=== PATIENT | male | born 1950 | race Caucasian/White ===

== ENCOUNTER 2019-03-18 14:10 | Observation (INO) | payer OTHER, MEDICARE, SELFPAY ==
[2019-03-18] VITALS (9 sets, daily range): BP systolic 120–207; BP diastolic 70–100; PULSE 76–94; RESP 14–17; TEMP 36.4–36.8; O2SAT 95–100; BMI 26.8; BMI 28.3
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
[2019-03-18] MEDS: Naproxen 500 MG Tablet PO (14:55)
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
--- NOTE | 2019-03-18 16:34 | RAD_ITS ---
STUDY: X-RAY - LEFT KNEE REASON FOR EXAM: Male, 69 years old. Left left patella TECHNIQUE: 9 view(s) of the knee. COMPARISON: 03/18/2019 1447 hours. FINDINGS: 9 images were submitted, as radiology support for c-arm imaging in the operating room. This is not a diagnostic examination. Images for documentation purposes only. Fluoroscopy time if reported: RAD/Knee 1 or 2 Views IMPRESSION: Intraoperative fluoroscopic image guidance. Electronically Signed: Alanis Zambrano MD at 23:22 EST , Service support ,
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
--- NOTE | 2019-03-18 16:43 | CHAPLAIN ---
Type of Pastoral Visit _x__ Initial Visit ___ Follow-up Visit ___ On-call Visit ___ General Patient Visit ___ Spiritual Assessment ___ Family Conference ___ Bereavement ___ Rapid Response ___ Code Blue ___ Other (describe below) Pastoral Care Referral From _x__ Patient ___ Family ___ Nurse ___ Physician ___ Technical Writing Lead/Mgr ___ Negotiator ___ Other (describe below) Sacrament/Intervention _x__ Active listening ___ Anointing ___ Denominational ___ Bereavement ___ Communion ___ Patricia exploration ___ ___ Life review _x__ Prayer ___ Reconciliation ___ Sacrament of Sick _x__ Supportive presence ___ Wedding ___ Other (describe below) Pastoral Comments
--- NOTE | 2019-03-18 16:49 | RAD_ITS ---
STUDY: X-RAY CHEST REASON FOR EXAM: Male, 69 years old. Preop TECHNIQUE: AP portable COMPARISON: None. FINDINGS: Lungs are mildly hyperinflated but clear. The. There is no demonstrated pleural abnormality. Normal size heart. Normal mediastinum and [place]il[place]. Normal visualized pulmonary arteries. Normal visualized aortic arch and descending thoracic aorta. Dorsal spine demonstrates minor scoliosis and degenerative change. Normal visualized ribs, clavicles, and shoulders. There is no demonstrated abnormality of the visualized soft tissue structures of the upper abdomen. RAD/Chest 1 View (Portable) IMPRESSION: Mild hyperinflation. No acute disease Electronically Signed: Amor Arnett MD at 17:14 EST , Service support ,
[2019-03-18] MEDS: Cefazolin 2 GM in 0.9% Normal Saline 100 ML IV (17:03)
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
[2019-03-18 17:24] LABS: Absolute Lymphocyte Count 1.46 X10^3/uL (0.83-4.51); Absolute Neutrophil Count 7.5 X10^3/uL (2.0-7.7); Basophil# 0.04 X10^3/uL; Basophil% 0.4 % (0-1); Eosinophil# 0.06 X10^3/uL; Eosinophils% 0.6 % (0-5); Hematocrit 43.8 % (40-54); Hemoglobin 14.9 g/dL (13.0-16.5); Lymphocyte # 1.46 X10^3/ul (4.0); Mean Corpuscular Hgb 31.3 pg (27.0-32.0); Mean Platelet Vol. 9.4 fl (6.2-12.0); Monocyte% 6.2 % (0-10); NRBC Flagged by Analyzer 0 % (0-5); Neutrophil # 7.52 X10^3/uL (2.7-7.7); Neutrophil % 77.4 % (47-70); Platelet Count 219 K/mm3 (150-450); RBC Distribution Width CV 11.7 % (11.6-14.6); RBC Distribution Width SD 39.7 fl (35.1-43.9); Red Blood Count 4.76 M/mm3 (4.6-6.2); White Blood Count 9.7 K/mm3 (4.4-11.0)
[2019-03-18 17:37] LABS: Anion Gap 5 (5-15); BUN 15 mg/dL (7-18); BUN/Creat Ratio 16.2 RATIO (10-20); Calcium,Total 9.2 mg/dL (8.5-10.1); Chloride 103 mmol/L (98-107); Creatinine, Serum 0.93 mg/dL (0.70-1.30); EST Glomerular Filtration Rate 86 mL/min (>60); Est Glom Filt Rate - Afr Amer 104 mL/min (>60); Glucose 131 mg/dL (74-106); Potassium 3.4 mmol/L (3.5-5.1); Sodium Level 137 mmol/L (136-145)
[2019-03-18 17:43] LABS: International Normalized Ratio 1.1
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
[2019-03-18] MEDS: Acetaminophen 500 MG Tablet 1000 MG PO (22:51)
[2019-03-18] MEDS: Senna/Docusate Sodium 1 Tablet 2 TABLET PO (22:51)
[2019-03-19] VITALS (7 sets, daily range): BP systolic 121–152; BP diastolic 62–88; PULSE 76–88; RESP 16–18; TEMP 36.5–36.9; O2SAT 97–99; BMI 28.3
[2019-03-19] MEDS: Cefazolin 1 GM/50 ML BAG IV ×3 (00:47→12:04)
[2019-03-19] MEDS: DiphenhydrAMINE 25 MG Capsule PO (00:47)
[2019-03-19] MEDS: 0.9% Saline Lock 10 ML Syringe IV (00:47)
[2019-03-19 05:13] LABS: Hematocrit 38.1 % (40-54); Hemoglobin 13.2 g/dL (13.0-16.5); Mean Corp Hgb Conc 34.6 g/dL (32-36); Mean Corpuscular Hgb 31.9 pg (27.0-32.0); Mean Platelet Vol. 9.5 fl (6.2-12.0); Platelet Count 193 K/mm3 (150-450); RBC Distribution Width SD 40.5 fl (35.1-43.9); Red Blood Count 4.14 M/mm3 (4.6-6.2); White Blood Count 7.8 K/mm3 (4.4-11.0)
[2019-03-19 05:29] LABS: Anion Gap 5 (5-15); BUN 11 mg/dL (7-18); BUN/Creat Ratio 13.4 RATIO (10-20); Calcium,Total 8.8 mg/dL (8.5-10.1); Chloride 107 mmol/L (98-107); Creatinine, Serum 0.82 mg/dL (0.70-1.30); EST Glomerular Filtration Rate 100 mL/min (>60); Est Glom Filt Rate - Afr Amer 121 mL/min (>60); Glucose 83 mg/dL (74-106); Potassium 3.6 mmol/L (3.5-5.1); Sodium Level 139 mmol/L (136-145)
[2019-03-19] MEDS: Acetaminophen 500 MG Tablet 1000 MG PO ×2 (05:31→14:31)
[2019-03-19] MEDS: Senna/Docusate Sodium 1 Tablet 2 TABLET PO (08:01)
[2019-03-19] MEDS: Aspirin 81 MG TAB.CHEW PO (08:01)
--- NOTE | 2019-03-19 11:35 | PCM.PN.ORT ---
Patient Problems: Active and Suspected Problems Fracture of left patella (Acute) Subjective: This 69-year-old male who is postop day 1 following open reduction internal fixation of a grade 2 open patella fracture. He has been in a knee immobilizer. No adverse events overnight. Pain in the left knee has been well controlled. He has done transfers from bed to bedside chair. Currently denies chest pain shortness of breath dizziness or calf pain. He is not sure when his most recent tetanus booster vaccine was. Objective: Inspection of the left knee reveals a dressing that is clean dry and intact. Negative Gali bilaterally without signs of DVT. Pedal pulses present and equal bilaterally. Sensation intact to light touch. Patient is able to actively plantar and dorsiflex bilateral feet against resistance. Neurovascularly intact. - Physical Exam Vitals/I&O's: Vital Signs Temp Pulse Resp BP Pulse Ox 98.2 F 76 18 137/62 H 97 03/19/19 10:43 03/19/19 10:43 03/19/19 10:43 03/19/19 10:43 03/19/19 10:43 Oxygen Delivery Method Room Air Weight: 92.2 kg Body Mass Index (BMI) 28.3 Intake and Output for Last 24 Hours 03/17/19 03/18/19 03/19/19 23:59 23:59 23:59 Intake Total 910 / 910 1189.75 / 1189.75 Output Total 1200 / 1200 Balance 910 / 910 -10.25 / -10.25 Laboratory Results 03/18/19 17:00: WBC 9.7, RBC 4.76, Hgb 14.9, Hct 43.8, MCV 92.0, MCH 31.3, MCHC 34.0, RDW Std Deviation 39.7, RDW Coeff of Kate 11.7, Plt Count 219, MPV 9.4, Immature Gran % (Auto) 0.400, Neut % (Auto) 77.4 H, Lymph % (Auto) 15.0 L, [place] % (Auto) 6.2, Eos % (Auto) 0.6, Baso % (Auto) 0.4, Absolute Neuts (auto) 7.5, Absolute Lymphs (auto) 1.46, Nucleated RBC % 0 03/18/19 17:00: Sodium 137, Potassium 3.4 L, Chloride 103, Carbon Dioxide 29.0, Anion Gap 5, BUN 15, Creatinine 0.93, Estim Creat Clear Calc 84.60, Est GFR (MDRD) Af Amer 104, Est GFR (MDRD) Non-Af 86, BUN/Creatinine Ratio 16.2, Glucose 131 H, Calcium 9.2 03/18/19 17:00: PT 14.0, INR 1.1 03/19/19 04:54: WBC 7.8, RBC 4.14 L, Hgb 13.2, Hct 38.1 L, MCV 92.0, MCH 31.9, MCHC 34.6, RDW Std Deviation 40.5, RDW Coeff of Kate 12.0, Plt Count 193, MPV 9.5 03/19/19 04:54: Sodium 139, Potassium 3.6, Chloride 107, Carbon Dioxide 27.0, Anion Gap 5, BUN 11, Creatinine 0.82, Estim Creat Clear Calc 93.10, Est GFR (MDRD) Af Amer 121, Est GFR (MDRD) Non-Af 100, BUN/Creatinine Ratio 13.4, Glucose 83, Calcium 8.8 Current Medications Acetaminophen (Tylenol) 1,000 mg PO Q8 [facility] Last Admin: 03/19/19 05:31 Dose: 1,000 mg Documented by: Aspirin (Aspirin, Baby) 81 mg PO BIDCM [facility] Last Admin: 03/19/19 08:01 Dose: 81 mg Documented by: Cefazolin Sodium () 1 gm in 50 mls @ 150 mls/hr IV Q6 [facility] Stop: 03/19/19 12:19 Last Infusion: 03/19/19 05:51 Dose: Infused Documented by: Sodium Chloride () 250 mls @ 15 mls/hr IV .[id number] PRN PRN Reason: Saline Flush Last Infusion: 03/19/19 07:05 Dose: 0 mls/hr Documented by: Ondansetron HCl (Zofran) 4 mg IV Q8H PRN PRN PRN Reason: NAUSEA Oxycodone HCl (Oxyir) 5 - 10 mg PO Q4H PRN PRN PRN Reason: Pain Score 4-10/10 Promethazine HCl (Phenergan) 12.5 mg IM Q6H PRN PRN; Protocol PRN Reason: NAUSEA/VOMITING Senna/Docusate Sodium (Senokot-S, Valerie-Colace) 2 tablet PO BID [facility] Last Admin: 03/19/19 08:01 Dose: 2 tablet Documented by: Sodium Chloride () 10 - 40 ml IV UD PRN PRN Reason: SALINE FLUSH Last Admin: 03/19/19 00:47 Dose: 20 ml Documented by: Tetanus Immune Globulin (Hypertet) 250 units IM .ONCE ONE Stop: 03/19/19 11:34 Medical Necessity - Tobacco Use Smoking Status: Never smoker Assessment/Plan All Active Problems Fracture of left patella (Acute) 1. Status post open reduction internal fixation grade 2 open patella fracture postop day #1 2. Continue oxycodone and Tylenol as needed for pain control 3. DVT prophylaxis we will add bilateral knee-high teds. Continue baby aspirin twice daily for blood clot prevention for 1 month postoperative 4. Begin PT/OT weightbearing as tolerated left lower extremity with knee immobilizer locking knee in extension. No range of motion at the left knee at this time. 5. We will update patient's tetanus vaccine 6. Continue discharge planning with case management 7. Encourage incentive spirometry 8. Patient is orthopedically stable and okay for discharge to home today we will follow-up in the office in 1 week for an incision check. Contact us sooner if having any problems.
--- NOTE | 2019-03-19 11:42 | DCINST_ITS ---
Discharge Diet: No Restrictions Discharge Activity: May Not Drive, May not drive while taking narcotic pain medications., Use Walker Ice area for (Minutes): 20 - Ice area for 20 minutes each hour while awake Weight Bearing Status: Weight bearing as tolerated - with knee immobilizer in p lace Keep extremity elevated above heart level: Operative Extremity Call your doctor if your incision/area has: Continuous Slow Oozing, Sudden Increased Bleeding, Increased Pain/ Swelling, Increased Redness, Foul Smelling Discharge Call your doctor if you observe: Fever of 101 or Higher, Coldness, Increased Pain, Numbness or Tingling, Change in Color, Chest pain, Increased palpitations (irregular heartbeat), Calf discomfort, Uncontrolled pain Cleanse incision/area with: Do not get Incision Wet, Keep Dressing Clean & Dry Allergies/Adverse Reactions: Allergies Sulfa (Sulfonamide Antibiotics) Allergy (Verified 03/18/19 14:11) Hives Medications to take at Discharge Glucosam/Kale-Msm1/C/Christopher/Bosw [Osteo Bi-Flex Caplet] 1 tab PO DAILY 03/18/19 Multivitamin [Daily Multiple Vitamin] 1 tab PO DAILY 03/18/19 Turmeric 400 mg PO DAILY 03/18/19 Acetaminophen [Tylenol] 1,000 mg PO Q8 #56 tab 03/19/19 Aspirin [Aspirin, Baby] 81 mg PO BIDCM #60 tab.chew 03/19/19 Oxycodone [Oxyir] 5 - 10 mg PO Q4H PRN PRN 7 Days #56 tab 03/19/19 Senna/Docusate Sodium [Senokot-S] 2 tab PO BID #30 tab 03/19/19 The following prescriptions were given: Aspirin [Aspirin, Baby] 81 mg PO BIDCM #60 tab.chew Prescription Printed Oxycodone [Oxyir] 5 - 10 mg PO Q4H PRN PRN 7 Days #56 tab PRN Reason: Pain Score 4-10/10 Prescription Printed Senna/Docusate Sodium [Senokot-S] 2 tab PO BID #30 tab Prescription Printed Acetaminophen [Tylenol] 1,000 mg PO Q8 #56 tab Prescription Printed Primary Care Physician: Zoya Verma PA [Primary Care Provider] - Test Results: Test results from this visit will be discussed in further detail at your follow- up appointment, if applicable. Please Follow Up With: Nida Bear When: 1 week post operative Proposed Discharge Date: 03/19/19
--- NOTE | 2019-03-19 14:00 | CASEMGMT ---
KAL KAHN updated that patient will need FWW at discharge. KAL KAHN called [facility] for script and received faxed script for FWW. KAL KAHN into discuss with patient and , list of DME provided. Patient agreeable to [employer]. KAL KAHN sent referral and arranged for walker to be delivered to patient's room prior to discharge.
--- NOTE | 2019-03-19 14:55 | CHAPLAIN ---
Type of Pastoral Visit ___ Initial Visit _x__ Follow-up Visit ___ On-call Visit ___ General Patient Visit ___ Spiritual Assessment ___ Family Conference ___ Bereavement ___ Rapid Response ___ Code Blue ___ Other (describe below) Pastoral Care Referral From _x__ Patient ___ Family ___ Nurse ___ Physician ___ Market Specialist ___ Patternmaker Pressure Cast ___ Other (describe below) Sacrament/Intervention _x__ Active listening ___ Anointing ___ Uatsdin ___ Bereavement ___ Communion ___ Patricia exploration ___ ___ Life review _x__ Prayer ___ Reconciliation ___ Sacrament of Sick _x__ Supportive presence ___ Wedding ___ Other (describe below) Pastoral Comments
--- NOTE | 2019-03-19 17:42 | NURSING ---
Information regarding Tetanus injection given to patient prior to administration.
== END 2019-03-19 17:10 | disposition home or self-care (01) ==
LOC: ED 16:44 → SDC 17:00 → AC 17:01 → MS3 20:42 → SDC 20:42
PROVIDERS: Admitting Provider Orthopaedic Surgery; Emergency Provider Emergency Medicine; Family Provider Physician Assistant; PCP Physician Assistant; Referring Provider Orthopaedic Surgery; Visit Provider Orthopaedic Surgery
PROC: (CPT 27524; principal; 2019-03-18 16:55)
DX: S82.042B Displaced comminuted fracture of left patella, initial encounter for open fracture type I or II (principal); S66.911A Strain of unspecified muscle, fascia and tendon at wrist and hand level, right hand, initial encounter; Z23 Encounter for immunization; V47.5XXA Car driver injured in collision with fixed or stationary object in traffic accident, initial encounter; Y93.89 Activity, other specified; Y92.238 Other place in hospital as the place of occurrence of the external cause; Y99.0 Civilian activity done for income or pay; E78.00 Pure hypercholesterolemia, unspecified
CPT/HCPCS: 11012; 12001; 27524; 36415; 71045; 73110; 73130; 73560; 73564; 76000; 80048; 85025; 85027; 85610; 93005; 96365; 96366; 97162; 99218; 99251; 99283; J1670; J7030; J7050; A4216; G0378; G0463; Q9968

== ENCOUNTER 2019-12-22 09:46 | Observation (INO) | payer MEDICARE, SELFPAY ==
[2019-03-18 21:09] VITALS: BMI 28.3
--- NOTE | 2019-12-08 11:17 | EKG12_ITS ---
Test Reason : PRE-OP Blood Pressure : / mmHG Vent. Rate : 075 BPM Atrial Rate : 075 BPM P-R Int : 140 ms QRS Dur : 094 ms QT Int : 388 ms P-R-T Axes : 071 037 058 degrees QTc Int : 433 ms Normal sinus rhythm Normal ECG Confirmed by URMILA DENIS, SONALI ([id number]), fan mail editor EMIL MEZA ([id number]) on 12/13/2019 1:58:05 PM Referred By: Bacilio Nice Confirmed By:SONALI KEARNS MD
[2019-12-08 12:09] LABS: Absolute Lymphocyte Count 1.41 X10^3/uL (0.83-4.51); Absolute Neutrophil Count 5.5 X10^3/uL (2.0-7.7); Basophil# 0.03 X10^3/uL; Basophil% 0.4 % (0-1); Eosinophil# 0.13 X10^3/uL; Eosinophils% 1.7 % (0-5); Hematocrit 42.9 % (40-54); Hemoglobin 14.3 g/dL (13.0-16.5); Lymphocyte # 1.41 X10^3/ul (4.0); Lymphocyte % 18.8 % (19-41); Mean Corp Hgb Conc 33.3 g/dL (32-36); Mean Corpuscular Hgb 31.1 pg (27.0-32.0); Mean Corpuscular Volume 93.3 fL (80-94); Mean Platelet Vol. 9.9 fl (6.2-12.0); Monocyte# 0.41 X10^3/uL; Monocyte% 5.5 % (0-10); NRBC Flagged by Analyzer 0 % (0-5); Neutrophil % 73.3 % (47-70); Platelet Count 251 K/mm3 (150-450); RBC Distribution Width CV 11.9 % (11.6-14.6); RBC Distribution Width SD 40.9 fl (35.1-43.9); White Blood Count 7.5 K/mm3 (4.4-11.0)
[2019-12-08 12:21] LABS: Anion Gap 4 (5-15); BUN 15 mg/dL (7-18); BUN/Creat Ratio 17.5 RATIO (10-20); Calcium,Total 9.3 mg/dL (8.5-10.1); Chloride 103 mmol/L (98-107); Creatinine, Serum 0.86 mg/dL (0.70-1.30); EST Glomerular Filtration Rate 95 mL/min (>60); Est Glom Filt Rate - Afr Amer 115 mL/min (>60); Glucose 138 mg/dL (74-106); Potassium 3.6 mmol/L (3.5-5.1); Sodium Level 137 mmol/L (136-145)
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
[2019-12-09 09:59] LABS: Magnesium 2.2 mg/dL (1.6-2.6)
[2019-12-22] VITALS (11 sets, daily range): BP systolic 125–167; BP diastolic 64–98; PULSE 78–96; RESP 16–18; TEMP 36.2–36.8; O2SAT 93–100; BMI 27.5
--- NOTE | 2019-12-22 07:30 | RAD_ITS ---
STUDY: X-RAY - PELVIS AND LEFT HIP REASON FOR EXAM: Male, 69 years old. POST OP HIP TECHNIQUE: 2 views of the pelvis and hip. COMPARISON: Earlier same day. FINDINGS: There is a non-specific bowel gas pattern. Postsurgical changes identified within the soft tissues adjacent to the left hip. Status post left hip total arthroplasty. Hardware appears intact and normally aligned. Moderate to severe right hip arthrosis. RAD/Hip Min 2 Views (Portable) IMPRESSION: Normal-appearing postoperative left total hip arthroplasty. Electronically Signed: Lev Salter, at 13:20 EDT Tel , Service support ,
[2019-12-22] MEDS: Lactated Ringers 1,000 ML 999 ML IV ×2 (09:40→12:43)
[2019-12-22] MEDS: Scopolamine 1mg/72hr Patch 1 PATCH TD (09:54)
[2019-12-22] MEDS: Acetaminophen 500 MG Tablet 1000 MG PO ×3 (09:55→21:18)
[2019-12-22] MEDS: Gabapentin 600 MG Tablet PO (09:55)
[2019-12-22] MEDS: Cefazolin 2 GM in 0.9% Normal Saline 100 ML IV (10:58)
[2019-12-22] MEDS: dexAMETHasone 10 MG/ML Vial IV (11:05)
--- NOTE | 2019-12-22 11:31 | RAD_ITS ---
STUDY: X-RAY - PELVIS AND LEFT HIP REASON FOR EXAM: Male, 69 years old. INTRA-OPERATIVE HIP TECHNIQUE: 3 intraoperative fluoroscopic views of the pelvis and hip. COMPARISON: None. FINDINGS: 3 intraoperative fluoroscopic views of a left hip total arthroplasty. Hardware appears intact and normally aligned. The remainder of the osseous structures are intact. Significant right hip arthrosis. RAD/Hip 1 view with Pelvis IMPRESSION: Intraoperative views of the left total hip arthroplasty with hardware appearing intact and normally aligned. Electronically Signed: Lev Salter, at 17:10 EDT Tel , Service support ,
--- NOTE | 2019-12-22 12:03 | PCM.OPRPT ---
Report of Operation Date of Procedure: 12/22/19 Pre-Operative Diagnosis: Left hip primary osteoarthritis Post-Operative Diagnosis: Left hip primary osteoarthritis Surgery/Procedure Performed:: Minimally invasive left direct anterior total replacement Description of Surgical Findings:: Stable hip with equal leg lengths wood tank erector: Sarah Kathleen Type of Anesthesia:: Spinal Anesthesiologist: Neil Llamas Special Medications: 2 g Ancef, 1 g TXA at incision, 1 g TXA closure, 10 mg Decadron, joint cocktail (5 mg Duramorph, 30 mL of 0.5% Ropivicaine, 1000 units of epinephrine, 30 mg of Toradol) Specimen's removed: Bony cuts Estimated Blood Loss (mL): 300 Fluids Replaced: 1200 mL crystalloid Description of Procedure: Components used: 1. Accolade 2 Ml femoral stem size 6 127? 2. Ml trident 2 acetabular shell size 52 mm 3. Ml X3 polyethylene E 4. Ml Biolox delta 36mm, 0mm femoral head Brief history operative indications: 69 yo M who failed conservative measures for their hip osteoarthritis. X-rays were consistent with osteoarthritis including joint space narrowing, osteophyte formation and subchondral cysts. Total hip replacement was discussed with the patient with risks and benefits including but not limited to blood loss, DVTs, PEs, neurovascular damage, dislocation, general risks of anesthesia including loss of life. Patient demonstrated an understanding medical clearance is obtained the patient was consented for surgery. Procedure: On the date of procedure the patient's L hip was marked in the preoperative area. Patient was then taken back to the operating room where anesthesia assumed control of the C-spine and airway and administered anesthetic. Patient was transferred to the operating table and placed in the supine position. The hips were placed at the break of the bed and a sacral bump was placed. The L lower extremity was then prepped out in a sterile fashion using chlorhexidine while the surgeon scrubbed. The PA was vital in the positioning of the patient. Upon reentering the room the L lower extremity was draped in the standard orthopedic fashion and the incision was marked. A timeout was called and everyone agreed upon the side, the site, the procedure be performed, antibody given, and patient's identity. At this time incision was made through skin, subcutaneous tissue, and fat down to fascia. The fascia was then incised and the TFL was retracted laterally. A retractor was placed on the lateral border of the femoral neck. Attention was directed to the inferior portion of the approach and all crossing vessels were identified and appropriately coagulated. A retractor was then placed on the medial portion of the femoral neck. The anterior capsule was then cleared of all soft tissue and then H shaped capsulotomy was made. The retractors were then placed inside the capsule. The femoral neck was identified and a cleanup cut was made. At this time a power corkscrew was used to remove the femoral head. Attention was then turned toward the acetabulum where the soft tissues were appropriately retracted and the acetabulum was sequentially reamed to 52 mm. A 52 mm cup was then selected and impacted into place. Acetabular liner was impacted into place and locking mechanism was verified. The position of the acetabular cup was then verified under live fluoroscopy. Attention was then turned to the femur. Soft tissue releases on the medial and lateral femoral neck were appropriately done, the leg was externally rotated and lateralized. A Kaplan retractor was placed medially and proximally to the greater trochanter this allowed appropriate visualization and exposure of the femoral canal. Rongeour was then used to remove excess lateral bone. A canal finder and entry broach were used to open the proximal canal. Once we verified we were down the femoral canal we subsequently broached up to a size 6 femur. The appropriate neck was placed in the previously selected head was trialed with a 0 mm neck. Traction was pulled and the hip was reduced with internal rotation. Once it was appropriately reduced and stability was checked. There was minimal shuck, equal leg lengths and appropriate stability with hyperextension and external rotation as well as with 90? flexion and internal rotation. Fluoroscopy was then also used to verify the position of the components and leg lengths using the contralateral side for comparison. The trial components were then dislocated the proximal femur was again exposed and the components were removed from the wound. The final components were verified and opened. The wound was copiously irrigated out with normal saline. The acetabulum was checked for any residual debris. The final components were placed and impacted. Traction and internal rotation were again used to reduce the hip. After adequate reduction the hip remained stable with appropriate leg lengths. The final components were once again checked with live fluoroscopy and were found to be satisfactory. The wound was then copiously irrigated with normal saline once more, and hemostasis was obtained. Closure was then done using #1 Vicryl runner to close the fascia. A 2-0 vicryl interuppted sutures were used to close the subcutaneous skin. A 3-0 Monocryl and Steri-Strips were used for final skin closure. A Silverlon dressing was placed. Patient was awakened by anesthesia and transferred to the [facility]. Patient was then transferred to the PACU for recovery. Postoperative plan: Patient will get 24 hours postop antibiotics. Patient will get in-house physical therapy and will be weight-bear as tolerated. Patient will follow up in office in 2 weeks for a wound check and x-rays. Aspirin 81 mg twice daily. - Complications No intraoperative complications - Admit VTE Documentation VTE Present on Admission: No VTE Mechan Device Prophylaxis: SCD's, Thigh High KEN Hose VTE Pharm Prophylaxis ordered?: Yes
[2019-12-22 12:45] LABS: Bedside Glucose 103 mg/dL (70-110)
[2019-12-22] MEDS: Lactated Ringers 1,000 ML 125 ML IV (13:31)
[2019-12-22] MEDS: Ensure Surgery 237 ML LIQUID PO (16:46)
[2019-12-22] MEDS: Cefazolin 1 GM/50 ML BAG IV (18:40)
[2019-12-22] MEDS: Ketorolac 15 MG/ML Vial IV (20:49)
[2019-12-22] MEDS: Aspirin 81 MG TAB.CHEW PO (21:17)
[2019-12-22] MEDS: Atorvastatin Calcium 10 MG Tablet PO (21:17)
[2019-12-22] MEDS: Senna/Docusate Sodium 1 Tablet 2 TABLET PO (21:18)
[2019-12-23 02:29] VITALS: BP 126/63; PULSE 74; RESP 18; TEMP 37.2; O2SAT 99
[2019-12-23] MEDS: Cefazolin 1 GM/50 ML BAG IV (02:38)
[2019-12-23] MEDS: Acetaminophen 500 MG Tablet 1000 MG PO ×2 (05:30→13:25)
[2019-12-23] MEDS: 0.9% NaCl Peripheral Flush Adult/Peds IV ×2 (05:34→13:26)
[2019-12-23] MEDS: Ketorolac 15 MG/ML Vial IV (05:36)
[2019-12-23 06:13] LABS: Hematocrit 36.8 % (40-54); Hemoglobin 12.6 g/dL (13.0-16.5); Mean Corp Hgb Conc 34.2 g/dL (32-36); Mean Corpuscular Hgb 31.5 pg (27.0-32.0); Mean Platelet Vol. 9.6 fl (6.2-12.0); Platelet Count 211 K/mm3 (150-450); RBC Distribution Width CV 11.9 % (11.6-14.6); RBC Distribution Width SD 40.3 fl (35.1-43.9); White Blood Count 15.8 K/mm3 (4.4-11.0)
[2019-12-23 06:42] LABS: Anion Gap 6 (5-15); BUN 17 mg/dL (7-18); BUN/Creat Ratio 19.1 RATIO (10-20); Calcium,Total 9.1 mg/dL (8.5-10.1); Chloride 103 mmol/L (98-107); Creatinine, Serum 0.89 mg/dL (0.70-1.30); EST Glomerular Filtration Rate 91 mL/min (>60); Est Glom Filt Rate - Afr Amer 110 mL/min (>60); Estimated Creatinine Clearance 85.78 ml/min; Glucose 132 mg/dL (74-106); Potassium 4.2 mmol/L (3.5-5.1); Sodium Level 136 mmol/L (136-145)
[2019-12-23 08:00] VITALS: BP 130/71; PULSE 71; RESP 16; TEMP 36.4; O2SAT 99
[2019-12-23] MEDS: Famotidine 20 MG Tablet PO (08:05)
[2019-12-23] MEDS: Aspirin 81 MG TAB.CHEW PO (08:05)
[2019-12-23] MEDS: Senna/Docusate Sodium 1 Tablet 2 TABLET PO (08:05)
[2019-12-23] MEDS: Ensure Surgery 237 ML LIQUID PO ×2 (08:09→12:06)
--- NOTE | 2019-12-23 09:18 | PN.ORTHO_ITS ---
Subjective: The patient was sitting in bedside chair upon examination. Patient denies any chest pain, shortness of breath, dizziness, lightheadedness, nausea or vomiting, or calf pain. Pain is controlled on medications. No adverse overnight events. Patient is doing very well. Patient has tolerated physical therapy and has been up walking. He wishes to go home today. Objective: Vital signs stable and afebrile. Patient is able to plantarflex and dorsiflex actively. Sensation is intact to light touch to saphenous, sural, superficial and deep peroneal, and tibial distribution. Dressing is clean dry and intact. Patient does have some surrounding ecchymosis with the left hip Negative Homans bilaterally, negative signs and symptoms of DVT. - Physical Exam Vitals/I&O's: Vital Signs Temp Pulse Resp BP Pulse Ox 97.6 F L 71 16 130/71 H 99 12/23/19 08:00 12/23/19 08:00 12/23/19 08:00 12/23/19 08:00 12/23/19 08:00 Oxygen Flow Rate (L/min) 6 Oxygen Delivery Method Room Air Weight: 90.8 kg Body Mass Index (BMI) 27.5 Intake and Output for Last 24 Hours 12/21/19 12/22/19 12/23/19 23:59 23:59 23:59 Intake Total 3735.5 / 4235.5 1031 / 1031 Balance 3735.5 / 4235.5 1031 / 1031 General: Alert, Oriented x3, Cooperative, No apparent distress Laboratory Results 12/22/19 09:26: POC Glucose 103 12/23/19 05:45: WBC 15.8 H, RBC 4.00 L, Hgb 12.6 L, Hct 36.8 L, MCV 92.0, MCH 31.5, MCHC 34.2, RDW Std Deviation 40.3, RDW Coeff of Kate 11.9, Plt Count 211, MPV 9.6 12/23/19 05:45: Sodium 136, Potassium 4.2, Chloride 103, Carbon Dioxide 27.0, Anion Gap 6, BUN 17, Creatinine 0.89, Estim Creat Clear Calc 85.78, Est GFR (MDRD) Af Amer 110, Est GFR (MDRD) Non-Af 91, BUN/Creatinine Ratio 19.1, Glucose 132 H, Calcium 9.1 Current Medications Acetaminophen (Tylenol) 1,000 mg PO Q8 [facility] Last Admin: 12/23/19 05:30 Dose: 1,000 mg Documented by: Aspirin (Aspirin, Baby) 81 mg PO BID [facility] Last Admin: 12/23/19 08:05 Dose: 81 mg Documented by: Atorvastatin Calcium (Lipitor) 10 mg PO QHS [facility] Last Admin: 12/22/19 21:17 Dose: 10 mg Documented by: Cholecalciferol (Vitamin D (25mcg)) 1,000 unit PO QHS [facility] Last Admin: 12/22/19 21:18 Dose: 1,000 unit Documented by: Enteral Nutritional Formula (Ensure Surgery) 237 ml PO TIDCM [facility] Last Admin: 12/23/19 08:09 Dose: 237 ml Documented by: Famotidine (Pepcid) 20 mg PO DAILY [facility] Last Admin: 12/23/19 08:05 Dose: 20 mg Documented by: Insulin Human Lispro (Humalog Kwikpen ([facility])) 1 - 6 unit SC Q4H PRN PRN; Protocol PRN Reason: BG>/= 180, SEE PROTOCOL Ketorolac Tromethamine (Toradol (Bkc)) 15 mg IV Q6H PRN PRN PRN Reason: Pain Score 1-5/10 Last Admin: 12/23/19 05:36 Dose: 15 mg Documented by: Meloxicam (Mobic) 7.5 mg PO BID [facility] Morphine Sulfate () 2 - 4 mg IV Q2H PRN PRN PRN Reason: Pain Score 4-10/10 Ondansetron HCl (Zofran) 4 mg IV Q8H PRN PRN PRN Reason: NAUSEA Oxycodone HCl (Oxyir) 5 - 10 mg PO Q4H PRN PRN PRN Reason: Pain Score 4-10/10 Promethazine HCl (Phenergan) 12.5 mg IM Q6H PRN PRN; Protocol PRN Reason: NAUSEA/VOMITING Senna/Docusate Sodium (Senokot-S, Valerie-Colace) 2 tablet PO BID [facility] Last Admin: 12/23/19 08:05 Dose: 2 tablet Documented by: Sodium Chloride () 5 - 15 ml IV UD PRN PRN Reason: SALINE FLUSH Last Admin: 12/23/19 05:34 Dose: 10 ml Documented by: Sodium Chloride () 10 - 40 ml IV UD PRN PRN Reason: SALINE FLUSH Medical Necessity - Tobacco Use Smoking Status: Never smoker Tobacco Use: Non-smoker Assessment/Plan All Active Problems (Last Updated 11/10/19 @ 11:20 by Ernestina Brar) Fracture of left patella (Acute) 1. S/P left direct anterior total hip arthroplasty POD #1 2. Continue Pain Medications: Tylenol, meloxicam, and OxyIR as needed 3. DVT Prophylaxis: Take 81 mg aspirin twice daily for 4 weeks postoperatively for DVT prophylaxis 4. PT/OT: Weightbearing as tolerated 5. H & H: 12.6/36.8, asymptomatic. Secondary to acute blood loss from surgery 6. Reactive leukocytosis: Currently 15.8, afebrile. Patient did receive Decadron intraoperatively 7. Encouraged Incentive Spirometry 8. Disposition: Orthopedically stable, plan will be for discharge home today. Patient has outpatient physical therapy established. Patient will follow-up per postop instructions. Narcotic prescription will be placed on chart and he will only get this filled if needed. I have reviewed the [place] Automated Rx Reporting System (OARRS) report for this patient for refill pattern and other prescriber involvement as part of the appropriate surveillance for the provision of acute and chronic controlled medications. The report was requested and reviewed on the date of this entry and was considered in the prescribing process.
--- NOTE | 2019-12-23 09:25 | PCM.DC.THR ---
Discharge Diet: No Restrictions Discharge Activity: May Not Drive - while taking narcotic pain medications. May shower in (days): 1 - Dressing must be intact to skin. Turned dressing away from water Ice area for (Minutes): 20 - Every 1-2 hours while awake Weight Bearing Status: Weight bearing as tolerated Elevate: Operative Extremity Additional Activity Instructions:: Wear elastic stockings for 2 weeks. DO NOT use alcohol with narcotic pain medication. DO NOT make important decisions while taking narcotic medication. If you have problems with taking your medication (rash, itching, nausea, etc.) call the office at once. Call your doctor if your incision/area has: Increased Pain/ Swelling, Increased Redness, Foul Smelling Discharge Call your doctor if you observe: Fever of 101 or Higher Remove Dressing in (days):: 4 - Okay to remove dressing on December 27, 2019 Additional Instructions: Follow orthopedic postop instructions Allergies/Adverse Reactions: Allergies Sulfa (Sulfonamide Antibiotics) Allergy (Verified 12/09/19 09:09) Hives Medications to take at Discharge atorvastatin 10 mg tablet 10 mg PO QHS 11/10/19 cholecalciferol (vitamin D3) 25 mcg (1,000 unit) capsule 25 mcg PO QHS 11/10/19 vitamin K2 40 mcg tablet 120 mcg PO DAILY tab 11/10/19 Mupirocin 1 applicatio NARES BID 12/22/19 Acetaminophen [Tylenol] 1,000 mg PO Q8 #100 tab 12/23/19 Aspirin [Aspirin, Baby] 81 mg PO BID #60 tab 12/23/19 Famotidine [Pepcid] 20 mg PO DAILY #30 tab 12/23/19 Meloxicam [Mobic] 7.5 mg PO BID #60 tab 12/23/19 Oxycodone [Oxyir] 5 - 10 mg PO Q4H PRN PRN 4 Days #48 tab 12/23/19 Senna/Docusate Sodium [Senokot-S] 2 tab PO BID #14 tab 12/23/19 The following prescriptions were given: Aspirin [Aspirin, Baby] 81 mg PO BID #60 tab Transmission Status: Pending to [facility] Meloxicam [Mobic] 7.5 mg PO BID #60 tab Transmission Status: Pending to [facility] Oxycodone [Oxyir] 5 - 10 mg PO Q4H PRN PRN 4 Days #48 tab PRN Reason: Pain Score 4-10/10 Prescription Printed Famotidine [Pepcid] 20 mg PO DAILY #30 tab Transmission Status: Pending to [facility] Senna/Docusate Sodium [Senokot-S] 2 tab PO BID #14 tab Transmission Status: Pending to [facility] Acetaminophen [Tylenol] 1,000 mg PO Q8 #100 tab Transmission Status: Pending to [facility] Primary Care Physician: Zoya Verma PA [Primary Care Provider] - Test Results: Test results from this visit will be discussed in further detail at your follow-up appointment, if applicable. Please Follow Up With: [facility] When: 12/27/19 @ 7:30 am with Kayce Please Follow Up With: Sharif Higginbotham PA-C When: 01/05/20 @ 9:00 am
--- NOTE | 2019-12-23 10:40 | CASEMGMT ---
KAL KAHN Face to Face with patient for initial transition planning/care coordination assessment. RN CRISS introduced self and role at [facility]. Patient sitting in chair, alert and oriented. Patient willing to participate in assessment and is able to answer all questions appropriately. Care providers, pharmacy, and demographics verified. Patient wishes to discharge home and is setup with [facility] for outpatient therapy. Patient states he has no further needs or concerns at this time. CM to follow for discharge planning needs that may arise. PCP: Catherine in January Specialists: sheryl Nice; Kaitlin, pulmonology Preferred [facility]acy: [facility] Insurance: in[employer] [facility] Prescription Benefit: yes Living Will/HPOA: yes, Michelle Juares LNOK: Living Arrangements: Patient lives with in a 1 story home with 2 steps to enter the home. Patient states he was independent at home prior to surgery Transportation: DME/HHC: Patient states he has a walker, cane, and cpap at home. Patient is scheduled for outpatient therapy at [facility] starting Friday. Disposition Plan: Patient to discharge home with outpatient therapy, family support, and follow-up plans in place. Yoli NOEL, RN, CM
--- NOTE | 2019-12-23 11:00 | CASEMGMT ---
KAL CM in to complete HUERTA form with patient. KAL KAHN explained HUERTA form to patient. Patient voices understanding and no questions or concerns at this time. Bart signed HUERTA form. Original filed in chart. Copy provided to patient.
--- NOTE | 2019-12-23 11:00 | PHA.DC.MC ---
Pharmacy Service has performed discharge medication reconciliation and counseling for this patient. 1. ACETAMINOPHEN 1000MG PO Q8H 2. ASPIRIN 81MG PO BIDCM 3. FAMOTIDINE 20MG PO DAILY 4. MELOXICAM 7.5MG PO BID 5. OXYCODONE 5-10MG PO Q4H PRN PAIN 4-01/21 6. SENNA/DOCUSATE 2T PO BID UNTIL FIRST BM, THEN PRN The patient's discharge medication list was reviewed for discrepancies and discrepancies were resolved. Home Medications atorvastatin 10 mg tablet 10 mg PO QHS 11/10/19 cholecalciferol (vitamin D3) 25 mcg (1,000 unit) capsule 25 mcg PO QHS 11/10/19 vitamin K2 40 mcg tablet 120 mcg PO DAILY tab 11/10/19 Mupirocin 1 applicatio NARES BID 12/22/19 Acetaminophen [Tylenol] 1,000 mg PO Q8 #100 tab 12/23/19 Aspirin [Aspirin, Baby] 81 mg PO BID #60 tab 12/23/19 Famotidine [Pepcid] 20 mg PO DAILY #30 tab 12/23/19 Meloxicam [Mobic] 7.5 mg PO BID #60 tab 12/23/19 Oxycodone [Oxyir] 5 - 10 mg PO Q4H PRN PRN 4 Days #48 tab 12/23/19 Senna/Docusate Sodium [Senokot-S] 2 tab PO BID #14 tab 12/23/19 The patient was counseled on the following discharge medications and changes in medications for homegoing were reviewed. The Reason for Use, instructions for use, and potential side effects were reviewed for all new medications. The patient's questions regarding all of their medications were answered. The patient was able to verbally demonstrate an understanding of their discharge medications.
[2019-12-23 13:25] VITALS: BP 133/65; PULSE 70; RESP 16; TEMP 36.6; O2SAT 95
== END 2019-12-23 13:32 | disposition home or self-care (01) ==
LOC: SDC 09:47 → MS3 09:47
PROVIDERS: Anesthesiology; Physician Assistant Surgical; Admitting Provider Specialist; PCP Physician Assistant; Referring Provider Specialist; Visit Provider Specialist
PROC: (CPT 27284; principal; 2019-12-22 10:40)
DX: M16.12 Unilateral primary osteoarthritis, left hip (principal); Z11.59 Encounter for screening for other viral diseases; G47.30 Sleep apnea, unspecified; M54.5 Low back pain; E78.00 Pure hypercholesterolemia, unspecified
CPT/HCPCS: 27130; 36415; 73501; 73502; 76000; 80048; 82962; 83735; 85025; 85027; 87077; 87081; 87635; 93005; 96361; 96365; 96366; 96375; 96376; 97110; 97116; 97162; 97166; 97530; 99218; 99251; C1776; C9803; J7120; A4216; G0378; G0379; G0463; U0003

== ENCOUNTER → 2020-05-22 09:07 | Outpatient (CLI) | payer MEDICARE, SELFPAY ==
[2020-01-27 14:50] VITALS: BMI 29.5
--- NOTE | 2020-05-22 09:10 | RAD_ITS ---
PROCEDURE: Fluoroscopic guided Hip Injection DATE: 05/22/2020. INDICATION: Male, 70 years old. Chronic right hip pain. PHYSICIAN: Edd Dyson M.D. MEDICATIONS: 6 mg of BETAMETHASONE and 3 cc of 1% LIDOCAINE. 2% lidocaine administered subcutaneously for local anesthesia. ACCESS SITE: Right hip. NEEDLE: 22-gauge spinal needle. FLUOROSCOPY TIME (if supplied): (0:44) minutes/seconds FINDINGS: The risks, benefits, and alternatives to the procedure were explained to the patient. The specific risks of bleeding, infection, and neurovascular injury were detailed and accepted. Witnessed informed consent was obtained. A 22-gauge spinal needle was positioned under radiographic fluoroscopic localization. Approximately 2 cc of ISOVUE-300 instilled for localization purposes. Medication was then injected. The patient tolerated the procedure well without any immediate complications. RAD/Inj/Asp Garth Jt Should/Hip/Knee IMPRESSION: 1. Successful fluoroscopic guided hip injection. Electronically Signed: Edd Dyson MD at 10:35 EST , Service support ,
== END ==
PROVIDERS: PCP Internal Medicine; Referring Provider Specialist; Visit Provider Specialist
DX: M16.11 Unilateral primary osteoarthritis, right hip (principal)
CPT/HCPCS: 20610; 77002; Q9967; J0702

== ENCOUNTER 2020-08-07 08:07 | Emergency (ER) | payer MEDICARE, SELFPAY ==
[2020-01-27 14:50] VITALS: BMI 29.5
[2020-08-07 08:08] VITALS: BP 169/87; PULSE 62; RESP 12; TEMP 36.9; O2SAT 99
--- NOTE | 2020-08-07 08:21 | EKG12_ITS ---
Test Reason : CP Blood Pressure : / mmHG Vent. Rate : 059 BPM Atrial Rate : 059 BPM P-R Int : 144 ms QRS Dur : 098 ms QT Int : 408 ms P-R-T Axes : 064 038 068 degrees QTc Int : 403 ms Sinus bradycardia Otherwise normal ECG Confirmed by CARISSA DENIS, ALEX ([id number]), deputy editor in chief EMIL MEZA ([id number]) on 08/09/2020 8:55:51 AM Referred By: JORDON Confirmed By:ALEX FERRER MD
--- NOTE | 2020-08-07 08:22 | ED.VIS.GEN ---
History of Present Illness Chief Complaint: Chest Pain Informant: Patient Narrative: 70-year-old male presents to emergency room with left-sided chest pain. Tells me that he went to bed early last night because he did a lot of spring cleanup recently. He woke around 2300 hrs. with pain just underneath his left nipple. He states he felt like he had had this pain before but could not place it at the time but now wonders if it is a similar pain he would get when he is riding his bike in a certain position. He has not had any exertional symptoms. No shortness of breath sweating nausea. No arm radiation or jaw or radiation. He states that he has felt a little constipated. No DVT PE risk factors. - Past Medical History (1) WILLIE (obstructive sleep apnea) Status: Chronic (2) Osteoarthritis Status: Chronic (3) Seasonal allergies Status: Chronic (4) Other and unspecified hyperlipidemia Status: Chronic Past Medical History - Allergies and Home Meds Allergies/Adverse Reactions: Allergies Sulfa (Sulfonamide Antibiotics) Allergy (Verified 08/07/20 08:10) Hives Primary Care Physician: Jia Yanes MD [Primary Care Provider] - Surgical History: noncontributory Smoking Status: Former smoker Drugs: None Review of Systems General: Denies: Chills, Fever, Sweats Eyes: Denies: Visual changes - bilaterally, Diplopia ENT: Denies: Rhinorrhea, Sore throat Cardiovascular: Reports: Chest pain. Denies: Palpitations Respiratory: Denies: Dyspnea, Cough, Dyspnea on exertion Gastrointestinal: Denies: Abdominal pain, Nausea, Vomiting, Diarrhea, Melena, Hematochezia Genitourinary: Denies: Dysuria, Hematuria, Frequency Musculoskeletal: Denies: Back pain, Extremity Pain Skin: Denies: Rash, Wounds Neurological: Denies: Headache, Weakness, Numbness Physical Exam Vital Signs/Narrative: Vital Signs Temp Pulse Resp BP Pulse Ox 08/07/20 08:08 98.4 F 62 12 169/87 H 99 Inital Vital Signs reviewed: Yes General: Well nourished, Well developed, No Acute Distress Head: Normocephalic, Atraumatic Eyes: Perrl, EOMI ENT: Moist mucous membranes, No rhinorrhea Neck: Supple, Nontender Cardiovascular: Regular rate, Regular rhythm, No murmurs Respiratory: No distress, CTA bilaterally, Chest nontender Abdomen: Soft, Nontender, Nondistended, Normal bowel sounds Back: Nontender, Normal Inspection Extremities: Nontender, No edema Skin: Normal color, No rash Neurological: Alert, Oriented x3, Cranial nerves II-XII grossly intact, Normal Strength, Normal Sensation Psychological: Normal affect, Normal Mood Diagnostic/Tx/Re-eval Clinical Impression(s) from Imaging Studies Chest X-Ray 08/07/20 08:28 IMPRESSION: No acute cardiopulmonary findings Electronically Signed: Abdoulaye Cary DO at 8:43 EDT Tel , Service support , Laboratory Last Values WBC 4.9 K/mm3 (4.4-11.0) 08/07/20 08:10 RBC 4.75 M/mm3 (4.6-6.2) 08/07/20 08:10 Hgb 14.8 g/dL (13.0-16.5) 08/07/20 08:10 Hct 44.4 % (40-54) 08/07/20 08:10 MCV 93.5 fL (80-94) 08/07/20 08:10 MCH 31.2 pg (27.0-32.0) 08/07/20 08:10 MCHC 33.3 g/dL (32-36) 08/07/20 08:10 RDW Std Deviation 41.8 fl (35.1-43.9) 08/07/20 08:10 RDW Coeff of Kate 12.0 % (11.6-14.6) 08/07/20 08:10 Plt Count 209 K/mm3 (150-450) 08/07/20 08:10 MPV 9.5 fl (6.2-12.0) 08/07/20 08:10 Immature Gran % (Auto) 0.200 % (0.0-0.9) 08/07/20 08:10 Neut % (Auto) 53.0 % (47-70) 08/07/20 08:10 Lymph % (Auto) 36.9 % (19-41) 08/07/20 08:10 [place] % (Auto) 7.3 % (0-10) 08/07/20 08:10 Eos % (Auto) 2.0 % (0-5) 08/07/20 08:10 Baso % (Auto) 0.6 % (0-1) 08/07/20 08:10 Absolute Neuts (auto) 2.6 X10^3/uL (2.0-7.7) 08/07/20 08:10 Absolute Lymphs (auto) 1.81 X10^3/uL (0.83-4.51) 08/07/20 08:10 Nucleated RBC % 0 % (0-5) 08/07/20 08:10 D-Dimer Quant (PE/DVT) 0.56 FEU/ug/m (0.27-0.49) H* 08/07/20 08:10 Sodium 138 mmol/L (136-145) 08/07/20 08:10 Potassium 3.5 mmol/L (3.5-5.1) 08/07/20 08:10 Chloride 102 mmol/L (98-107) 08/07/20 08:10 Carbon Dioxide 31.0 mmol/L (21.0-32.0) 08/07/20 08:10 Anion Gap 5 (5-15) 08/07/20 08:10 BUN 13 mg/dL (7-18) 08/07/20 08:10 Creatinine 0.84 mg/dL (0.70-1.30) 08/07/20 08:10 Estim Creat Clear Calc 89.64 ml/min 08/07/20 08:10 Est GFR (MDRD) Af Amer 117 mL/min (>60) 08/07/20 08:10 Est GFR (MDRD) Non-Af 97 mL/min (>60) 08/07/20 08:10 BUN/Creatinine Ratio 15.5 RATIO (10-20) 08/07/20 08:10 Glucose 88 mg/dL (74-106) 08/07/20 08:10 Calcium 9.2 mg/dL (8.5-10.1) 08/07/20 08:10 Total Bilirubin 0.50 mg/dL (0.20-1.00) 08/07/20 08:10 AST 33 U/L (15-37) 08/07/20 08:10 ALT 39 U/L (16-61) 08/07/20 08:10 Alkaline Phosphatase 85 U/L (45-117) 08/07/20 08:10 Troponin I < 0.015 ng/mL (<0.045) 08/07/20 08:10 Total Protein 7.8 g/dL (6.4-8.2) 08/07/20 08:10 Albumin 4.0 g/dL (3.2-5.0) 08/07/20 08:10 Globulin 3.8 g/dL (2.2-4.2) 08/07/20 08:10 Albumin/Globulin Ratio 1.1 RATIO (0.9-2.4) 08/07/20 08:10 Lipase 130 U/L (73-393) 08/07/20 08:10 - EKG Initial EKG Interpretation: Sinus Rhythm - EKG shows a sinus bradycardia at a rate of 59. No concerning features of ACS or ectopy noted - Medical Decision Making ASIC blood work negative. Age adjusted D-dimer normal. Troponin negative. EKG sinus bradycardia with no concerning features. On interpretation of a single view portable chest x-ray is no acute process normal mediastinal silhouette. At this point the patient was discussed with his primary care physician will help us follow him out for potential stress testing. Patient is comfortable with this plan. I think most likely this will be musculoskeletal. ED Disposition - Plan for ED Patient: Disposition: Home or Assisted Living Diagnosis: Chest pain Instructions: ED Chest Pain, Uncertain Cause Referrals: Jia Yanes MD [Primary Care Provider] - (Call the office to arrange follow-up later this week.)
[2020-08-07 08:26] LABS: Absolute Lymphocyte Count 1.81 X10^3/uL (0.83-4.51); Absolute Neutrophil Count 2.6 X10^3/uL (2.0-7.7); Basophil# 0.03 X10^3/uL; Basophil% 0.6 % (0-1); Hematocrit 44.4 % (40-54); Hemoglobin 14.8 g/dL (13.0-16.5); Lymphocyte # 1.81 X10^3/ul (0.83-4.51); Lymphocyte % 36.9 % (19-41); Mean Corp Hgb Conc 33.3 g/dL (32-36); Mean Corpuscular Hgb 31.2 pg (27.0-32.0); Mean Corpuscular Volume 93.5 fL (80-94); Mean Platelet Vol. 9.5 fl (6.2-12.0); Monocyte# 0.36 X10^3/uL; Monocyte% 7.3 % (0-10); NRBC Flagged by Analyzer 0 % (0-5); Neutrophil # 2.59 X10^3/uL (2.7-7.7); Platelet Count 209 K/mm3 (150-450); RBC Distribution Width SD 41.8 fl (35.1-43.9); Red Blood Count 4.75 M/mm3 (4.6-6.2); White Blood Count 4.9 K/mm3 (4.4-11.0)
--- NOTE | 2020-08-07 08:28 | RAD_ITS ---
STUDY: X-RAY CHEST REASON FOR EXAM: Male, 70 years old. chest pain TECHNIQUE: Single AP portable view of the chest. COMPARISON: 03/18/2019. FINDINGS: Cardiac silhouette unremarkable. Pulmonary vascularity unremarkable. Aorta unremarkable. No focal patchy airspace opacities. No pleural effusions. Slightly coarse lung markings. Upper abdomen unremarkable. Osseous structures intact. No pneumothorax. RAD/Chest 1 View (Portable) IMPRESSION: No acute cardiopulmonary findings Electronically Signed: Abdoulaye Cary DO at 8:43 EDT Tel , Service support ,
[2020-08-07 08:40] LABS: D-Dimer Quantitative (DVT/PE) 0.56 FEU/ug/m (0.27-0.49)
[2020-08-07 08:48] LABS: ALB/GLOB Ratio 1.1 RATIO (0.9-2.4); AST(SGOT) 33 U/L (15-37); Alanine Aminotransfer ALT/SGPT 39 U/L (16-61); Alkaline Phosphatase 85 U/L (45-117); Anion Gap 5 (5-15); BUN 13 mg/dL (7-18); BUN/Creat Ratio 15.5 RATIO (10-20); Calcium,Total 9.2 mg/dL (8.5-10.1); Chloride 102 mmol/L (98-107); Creatinine, Serum 0.84 mg/dL (0.70-1.30); EST Glomerular Filtration Rate 97 mL/min (>60); Est Glom Filt Rate - Afr Amer 117 mL/min (>60); Estimated Creatinine Clearance 89.64 ml/min; Globulin 3.8 g/dL (2.2-4.2); Glucose 88 mg/dL (74-106); Lipase 130 U/L (73-393); Potassium 3.5 mmol/L (3.5-5.1); Protein, Total 7.8 g/dL (6.4-8.2); Sodium Level 138 mmol/L (136-145)
[2020-08-07] MEDS: Aspirin 81 MG TAB.CHEW 324 MG PO (08:55)
[2020-08-07 09:49] VITALS: BP 156/92; PULSE 66; RESP 16; O2SAT 98
== END 2020-08-07 09:54 | disposition home or self-care (01) ==
PROVIDERS: Emergency Provider Emergency Medicine; PCP Internal Medicine
DX: R07.89 Other chest pain (principal); E78.5 Hyperlipidemia, unspecified; G47.33 Obstructive sleep apnea (adult) (pediatric); M19.90 Unspecified osteoarthritis, unspecified site; J30.2 Other seasonal allergic rhinitis; Z79.899 Other long term (current) drug therapy; Z87.891 Personal history of nicotine dependence
CPT/HCPCS: 71045; 80053; 83690; 84484; 85025; 85379; 93005; 99285; A4216

== ENCOUNTER → 2020-08-31 06:10 | Outpatient (CLI) | payer MEDICARE, SELFPAY ==
--- NOTE | 2020-08-31 10:29 | STRESSREP ---
Stress Test Report Date: 08/31/2020 Procedure: Exercise tolerance test/imaging study Indications: Chest pain Consent: Per the patient Procedure: The patient exercised on a Winston protocol for 9 minutes achieving a peak heart rate of 151 bpm (99% predicted maximal heart rate) with a peak blood pressure 210/74 mmHg and a peak MET capacity of 10.1 METs. The baseline ECG demonstrated normal sinus rhythm. The peak exercise ECG demonstrated sinus tachycardia with about a [address] depressions in the inferior and lateral leads. EKG during recovery revealed no significant ischemic changes [There were no cardiac dysrhythmias pretest, during exercise, or recovery]. The functional capacity was considered excellent for age. There was [no complaint of chest discomfort during exercise or recovery]. The examination was discontinued secondary to dyspnea. Impression: 1. Technically adequate (percent predicted maximal heart rate greater than 85%) exercise tolerance test 2. Stress test is negative for exercise-induced EKG changes of ischemia 3. The test test is negative for exercise-induced chest pain 4. Functional capacity is excellent for age 5. Nuclear images pending Myocardial perfusion imaging study: Technique: The patient was injected with [] mCi of technetium 99m Cardiolite and subsequently rest SPECT Cardiolite nuclear imaging was obtained in the horizontal long, vertical long, and short axis views. The patient exercised on a Winston protocol. Please see above for details. The patient was injected with [] mCi of technetium 99m Cardiolite and subsequently stress SPECT Cardiolite nuclear imaging was obtained in the horizontal long, vertical long, and short axis views. A gated Cardiolite study at peak stress was obtained. Interpretation: Rest and stress SPECT Cardiolite nuclear imaging status post realignment, normalization, and attenuation correction, demonstrates no evidence of significant ischemia or infarction. The gated Cardiolite study demonstrates no significant regional wall motion abnormalities. The reported LVEF is 59%. Impression: 1. There is no evidence of significant ischemia or infarction. 2. The gated Cardiolite study reports an LVEF of 59%. This note was generated with QuicklyChatation software. It may contain incorrect words, spelling, and punctuation that were not noted in checking the note before signing.
== END ==
PROVIDERS: PCP Internal Medicine; Referring Provider Internal Medicine; Visit Provider Internal Medicine
DX: R07.9 Chest pain, unspecified (principal)
CPT/HCPCS: 78452; 93017; A9500; A4216

== ENCOUNTER → 2021-01-25 06:04 | Outpatient (CLI) | payer MEDICARE, SELFPAY ==
[2021-01-25 07:18] LABS: Absolute Lymphocyte Count 1.42 X10^3/uL (0.83-4.51); Absolute Neutrophil Count 3.1 X10^3/uL (2.0-7.7); Basophil# 0.03 X10^3/uL; Basophil% 0.6 % (0-1); Eosinophil# 0.12 X10^3/uL; Eosinophils% 2.4 % (0-5); Hematocrit 42.2 % (40-54); Hemoglobin 13.9 g/dL (13.0-16.5); Lymphocyte # 1.42 X10^3/ul (0.83-4.51); Lymphocyte % 28.5 % (19-41); Mean Corp Hgb Conc 32.9 g/dL (32-36); Mean Corpuscular Hgb 30.3 pg (27.0-32.0); Mean Corpuscular Volume 91.9 fL (80-94); Mean Platelet Vol. 9.7 fl (6.2-12.0); Monocyte# 0.32 X10^3/uL; Monocyte% 6.4 % (0-10); NRBC Flagged by Analyzer 0 % (0-5); Neutrophil # 3.08 X10^3/uL (2.7-7.7); Neutrophil % 61.9 % (47-70); Platelet Count 195 K/mm3 (150-450); RBC Distribution Width CV 12.1 % (11.6-14.6); RBC Distribution Width SD 40.8 fl (35.1-43.9); Red Blood Count 4.59 M/mm3 (4.6-6.2)
[2021-01-25 07:54] LABS: AST(SGOT) 21 U/L (15-37); Alanine Aminotransfer ALT/SGPT 30 U/L (16-61); Albumin, Serum 3.7 g/dL (3.2-5.0); Alkaline Phosphatase 77 U/L (45-117); Anion Gap 6 (5-15); BUN 13 mg/dL (7-18); BUN/Creat Ratio 17.2 RATIO (10-20); Calcium,Total 9.4 mg/dL (8.5-10.1); Chloride 104 mmol/L (98-107); Cholesterol 133 mg/dL (200); Creatinine, Serum 0.76 mg/dL (0.70-1.30); EST Glomerular Filtration Rate 109 mL/min (>60); Est Glom Filt Rate - Afr Amer 132 mL/min (>60); Globulin 3.8 g/dL (2.2-4.2); Glucose 92 mg/dL (74-106); High Density Lipoprotein 36 mg/dL; PSA,Total - Annual Screen 1.23 ng/mL (0.00-4.00); Potassium 3.8 mmol/L (3.5-5.1); Protein, Total 7.5 g/dL (6.4-8.2); Sodium Level 139 mmol/L (136-145); Thyroid Stim Hormone (TSH) 3.05 uIU/mL (0.358-3.74); Triglycerides 138 mg/dL; Very Low Density Lipoprotein 28 mg/dL (5-40)
[2021-01-25 08:37] LABS: Vitamin D,25 Hydroxy 28.7 ng/mL
== END ==
PROVIDERS: PCP Internal Medicine; Referring Provider Internal Medicine; Visit Provider Internal Medicine
DX: E78.5 Hyperlipidemia, unspecified (principal); G47.33 Obstructive sleep apnea (adult) (pediatric); M19.90 Unspecified osteoarthritis, unspecified site; E55.9 Vitamin D deficiency, unspecified; Z13.220 Encounter for screening for lipoid disorders; Z12.5 Encounter for screening for malignant neoplasm of prostate
CPT/HCPCS: 36415; 80053; 80061; 82306; 84153; 84443; 85025; G0103

== ENCOUNTER → 2021-03-06 | Outpatient (CLI) | payer MEDICARE, SELFPAY | END | disposition home or self-care (01) | LOC: LABSPEC 15:23 | PROVIDERS: PCP Internal Medicine; Referring Provider Internal Medicine; Visit Provider Internal Medicine | DX: R53.83 Other fatigue (principal); R52 Pain, unspecified | CPT/HCPCS: 87635; U0005; U0003 ==

== ENCOUNTER 2021-08-28 05:19 | Day surgery (SDC) | payer MEDICARE, SELFPAY ==
[2021-08-28] VITALS (11 sets, daily range): BP systolic 120–154; BP diastolic 70–91; PULSE 54–64; RESP 16–18; TEMP 36.2–36.3; O2SAT 93–100; BMI 27.6
[2021-08-28] MEDS: Lactated Ringers 1,000 ML 15 ML IV (06:03)
--- NOTE | 2021-08-28 06:20 | HP.PCM_ITS ---
History and Physical Date of Admission: 08/28/21
--- NOTE | 2021-08-28 06:20 | PCM.HP.BLA ---
History and Physical Date of Admission: 08/28/21
--- NOTE | 2021-08-28 06:25 | HP.PCM_ITS ---
HPI - General HPI Narrative CELIA OSMAN, is a 71 M who presents for a surveillance colonoscopy. He presents via open access today. Patient had a previous colonoscopy approximately [address] Td Ying removed a polyp. The patient has not any bright red blood per rectum or melena. No abdominal pain. No family history of colon cancer. He otherwise enjoys good health. No history of COVID- 19. No history of DVT. [facility] Medical History (Updated 08/28/21 @ 06:[address] Stiven Concepcion MD) Arthritis BiPAP (biphasic positive airway pressure) dependence Hearing loss History of stress test Non-smoker WILLIE (obstructive sleep apnea) Osteoarthritis Other and unspecified hyperlipidemia Seasonal allergies Wears glasses Wears hearing aid Home Medications multivitamin 1 tab PO DAILY 01/27/20 [History Last Taken Unknown] tumeric 500 mg PO DAILY 01/27/20 [History Last Taken Unknown] fluticasone propionate 50 mcg/actuation nasal spray,suspension 1 spray INTRANASAL PRN PRN 08/21/20 [History Last Taken Unknown] loratadine 10 mg capsule 10 mg PO PRN PRN 08/21/20 [History Last Taken Unknown] omega-3 fatty acids 1,000 mg capsule 1,000 mg PO BID 10/12/20 [History Last Taken Unknown] atorvastatin 10 mg tablet 10 mg PO QHS #90 tablet 12/04/20 [Rx Last Taken Unknown] Allergy/AdvReac Type Severity Reaction Status Date / Time Sulfa (Sulfonamide Allergy Hives Verified 08/28/21 05:46 Antibiotics) Family History Mother Breast cancer CVA (cerebral vascular accident) Grandfather CVA (cerebral vascular accident) Arthritis Grandmother CVA (cerebral vascular accident) Mental disorder Surgical History (Updated 08/24/21 @ 14:19 by Diane Kohler) History of cataract extraction History of left hip replacement History of right hip replacement History of testicular surgery left knee left wrist Social History Smoking Status: Never smoker alcohol intake: never substance use type: does not use what type of physical activity do you participate in: walking, bicycling and swimming ROS Constitutional Constitutional: Reports systems reviewed and no addt'l complaints, except as documented Cardiovascular Cardiovascular: Denies chest pain Respiratory/Chest Respiratory/Chest: Denies shortness of breath at rest Gastrointestinal Gastrointestinal: Denies abdominal pain, change in bowel habits, hematochezia or melena Vital Signs Vital Signs Vital Signs: 08/28/21 05:48 08/28/21 05:50 Temperature 97.3 F L Temperature Source Temporal Pulse Rate 56 L Respiratory Rate 18 Respiratory Pattern Normal Blood Pressure 140/70 H Blood Pressure Mean 93 Blood Pressure Source Monitor Blood Pressure Position Semi-Fowlers Blood Pressure Location Left Arm Pulse Ox 100 Oxygen Delivery Method Room Air Weight Weight: 198 lb Body Mass Index (BMI) 27.6 Physical Exam Const alert, oriented x3 and no apparent distress General Appearance: cooperative and comfortable Eyes General Eye: normal appearance of both eyes Neck General: normal visual inspection Chest inspection of chest normal Resp Effort and Inspection: able to speak in complete sentences and symmetric chest movement Auscultation: clear to auscultation bilaterally Cardio regular rate and regular rhythm GI soft to palpation, non-tender and non-distended Extremity no calf tenderness Neuro oriented x3 Psych thought process normal Assessment & Plan Assessment/Plan (1) Personal history of colonic polyps: PLAN: The patient presents for surveillance colonoscopy today via open access. He is aware of the technique, benefit, risk, alternatives. He has had an opportunity to ask and have questions answered. We will proceed as noted. Stiven Concepcion M.D., F.A.C.S.
[2021-08-28] MEDS: Midazolam 5 MG/ML Syringe (06:35)
--- NOTE | 2021-08-28 07:02 | OP.CCLET_ITS ---
08/28/2021 Jia Yanes [facility] [address] [place] [address] Re : Colonoscopy procedure for Kolton Juares Dear Dr. Yanes This procedure was performed on Saturday, August 28, 2021. My impressions and recommendations are as follows: Impressions : - Non-thrombosed internal hemorrhoids and internal hemorrhoids that prolapse with straining, but spontaneously regress to the resting position (Grade II) found on digital rectal exam. - The entire examined colon is normal. - No specimens collected. Recommendations : - Discharge patient to home. - Resume previous diet. - Continue present medications. - Repeat colonoscopy in 10 years for screening purposes. My findings are described in the full procedure note, which is enclosed. If I can be of further assistance, please feel free to contact me at Doctor phone number(s): Work: . Sincerely, Stiven Concepcion MD 08/28/2021 7:01:35 AM This report has been signed electronically.
--- NOTE | 2021-08-28 07:02 | OP.COLON_ITS ---
Patient Name: Kolton Juares Procedure Date: 08/28/2021 6:26 AM Date of : 1950 Age: 71 Procedure: Colonoscopy Indications: High risk colon cancer surveillance: Personal history of colonic polyps Providers: Stiven Concepcion MD Medicines: Midazolam 3.5 mg IV, Meperidine 100 mg IV Patient Profile: Last Colonoscopy: 5 years ago. Complications: No immediate complications. Procedure: Pre-Anesthesia Assessment: - Prior to the procedure, a History and Physical was performed, and patient medications and allergies were reviewed. The patient's tolerance of previous anesthesia was also reviewed. The risks and benefits of the procedure and the sedation options and risks were discussed with the patient. All questions were answered, and informed consent was obtained. Prior Anticoagulants: The patient has taken no previous anticoagulant or antiplatelet agents. ASA Grade Assessment: II - A patient with mild systemic disease. After reviewing the risks and benefits, the patient was deemed in satisfactory condition to undergo the procedure. After I obtained informed consent, the scope was passed under direct vision. Throughout the procedure, the patient's blood pressure, pulse, and oxygen saturations were monitored continuously. The Colonoscope was introduced through the anus and advanced to the cecum, identified by appendiceal orifice and ileocecal valve. The colonoscopy was performed without difficulty. The patient tolerated the procedure well. The quality of the bowel preparation was good. The ileocecal valve and the appendiceal orifice were photographed. Moderate Sedation: Moderate (conscious) sedation was personally administered by the endoscopist. The following parameters were monitored: oxygen saturation, heart rate, blood pressure, and response to care. Total physician intraservice time was 15 minutes. Scope In: 6:38:18 AM Scope Withdrawal Time 0 hours 9 minutes 6 seconds Scope Out: 6:54:41 AM Total Procedure Duration Time 0 hours 16 minutes 23 seconds Findings: The digital rectal exam findings include non-thrombosed internal hemorrhoids and internal hemorrhoids that prolapse with straining, but spontaneously regress to the resting position (Grade II). Pertinent negatives include normal prostate (size, shape, and consistency). The colon (entire examined portion) appeared normal. Impression: - Non-thrombosed internal hemorrhoids and internal hemorrhoids that prolapse with straining, but spontaneously regress to the resting position (Grade II) found on digital rectal exam. - The entire examined colon is normal. - No specimens collected. Recommendation: - Discharge patient to home. - Resume previous diet. - Continue present medications. - Repeat colonoscopy in 10 years for screening purposes. Procedure Code(s): --- Professional --- 44184, Colonoscopy, flexible; diagnostic, including collection of specimen(s) by brushing or washing, when performed (separate procedure) 54924, 59, Moderate sedation services provided by the same physician or other qualified health campground caretaker performing the diagnostic or therapeutic service that the sedation supports, requiring the presence of an independent trained observer to assist in the monitoring of the patient's level of consciousness and physiological status; initial 15 minutes of intraservice time, patient age 5 years or older Diagnosis Code(s): --- Professional --- Z86.010, Personal history of colonic polyps K64.1, Second degree hemorrhoids CPT copyright 2017 [employer]. All rights reserved. The codes documented in this report are preliminary and upon cutter plastics rolls review may be revised to meet current compliance requirements. Stiven Concepcion MD 08/28/2021 7:01:35 AM This report has been signed electronically. Number of Addenda: 0 Note Initiated On: 08/28/2021 6:26 AM
== END 2021-08-28 08:04 | disposition home or self-care (01) ==
LOC: EN 05:20 → AC 05:22
PROVIDERS: PCP Internal Medicine; Referring Provider Internal Medicine; Visit Provider Surgery
PROC: 0DJD8ZZ Inspection of Lower Intestinal Tract, Via Natural or Artificial Opening Endoscopic (ICD-10-PCS; CPT 45378; principal; 2021-08-28 06:25)
DX: Z12.11 Encounter for screening for malignant neoplasm of colon (principal); K64.1 Second degree hemorrhoids; Z86.010 Personal history of colon polyps; E78.5 Hyperlipidemia, unspecified; G47.33 Obstructive sleep apnea (adult) (pediatric); M19.90 Unspecified osteoarthritis, unspecified site; Z79.899 Other long term (current) drug therapy
CPT/HCPCS: 99152; 99153; J7120

== ENCOUNTER → 2022-01-30 | Outpatient (CLI) | payer MEDICARE, SELFPAY ==
[2022-01-30 07:44] LABS: Absolute Lymphocyte Count 1.79 X10^3/uL (0.83-4.51); Absolute Neutrophil Count 2.8 X10^3/uL (2.0-7.7); Basophil# 0.04 X10^3/uL; Basophil% 0.8 % (0-1); Eosinophil# 0.16 X10^3/uL; Eosinophils% 3.1 % (0-5); Hematocrit 43.3 % (40-54); Lymphocyte # 1.79 X10^3/ul (0.83-4.51); Lymphocyte % 34.4 % (19-41); Mean Corp Hgb Conc 34.6 g/dL (32-36); Mean Corpuscular Hgb 31.8 pg (27.0-32.0); Mean Corpuscular Volume 91.7 fL (80-94); Mean Platelet Vol. 9.7 fl (6.2-12.0); Monocyte# 0.42 X10^3/uL; Monocyte% 8.1 % (0-10); NRBC Flagged by Analyzer 0 % (0-5); Neutrophil # 2.79 X10^3/uL (2.7-7.7); Neutrophil % 53.4 % (47-70); Platelet Count 215 K/mm3 (150-450); RBC Distribution Width SD 40.3 fl (35.1-43.9); Red Blood Count 4.72 M/mm3 (4.6-6.2); White Blood Count 5.2 K/mm3 (4.4-11.0)
[2022-01-30 08:46] LABS: AST(SGOT) 30 U/L (15-37); Alanine Aminotransfer ALT/SGPT 35 U/L (16-61); Albumin, Serum 3.9 g/dL (3.2-5.0); Alkaline Phosphatase 66 U/L (45-117); Anion Gap 4 (5-15); BUN 12 mg/dL (7-18); BUN/Creat Ratio 14.9 RATIO (10-20); Calcium,Total 9.4 mg/dL (8.5-10.1); Chloride 105 mmol/L (98-107); Cholesterol 148 mg/dL (200); Creatinine, Serum 0.81 mg/dL (0.70-1.30); EST Glomerular Filtration Rate 101 mL/min (>60); Est Glom Filt Rate - Afr Amer 122 mL/min (>60); Globulin 3.8 g/dL (2.2-4.2); Glucose 96 mg/dL (74-106); High Density Lipoprotein 32 mg/dL; PSA,Total - Annual Screen 2.05 ng/mL (0.00-4.00); Potassium 4.1 mmol/L (3.5-5.1); Protein, Total 7.7 g/dL (6.4-8.2); Sodium Level 140 mmol/L (136-145); Triglycerides 214 mg/dL; Very Low Density Lipoprotein 43 mg/dL (5-40)
== END | disposition home or self-care (01) ==
LOC: LAB 06:16
PROVIDERS: PCP Internal Medicine; Referring Provider Internal Medicine; Visit Provider Internal Medicine
DX: Z00.00 Encounter for general adult medical examination without abnormal findings (principal); E78.5 Hyperlipidemia, unspecified; Z12.5 Encounter for screening for malignant neoplasm of prostate
CPT/HCPCS: 36415; 80053; 80061; 84153; 85025; G0103

== ENCOUNTER → 2023-02-06 | Outpatient (CLI) | payer MEDICARE, SELFPAY ==
[2023-02-06 06:55] LABS: Absolute Lymphocyte Count 1.68 X10^3/uL (0.83-4.51); Absolute Neutrophil Count 2.8 X10^3/uL (2.0-7.7); Basophil# 0.03 X10^3/uL; Basophil% 0.6 % (0-1); Eosinophil# 0.21 X10^3/uL; Hematocrit 40.5 % (40-54); Hemoglobin 13.9 g/dL (13.0-16.5); Lymphocyte # 1.68 X10^3/ul (0.83-4.51); Lymphocyte % 32.2 % (19-41); Mean Corp Hgb Conc 34.3 g/dL (32-36); Mean Corpuscular Hgb 32.6 pg (27.0-32.0); Mean Corpuscular Volume 94.8 fL (80-94); Mean Platelet Vol. 9.3 fl (6.2-12.0); Monocyte# 0.51 X10^3/uL; Monocyte% 9.8 % (0-10); NRBC Flagged by Analyzer 0 % (0-5); Neutrophil # 2.78 X10^3/uL (2.7-7.7); Neutrophil % 53.2 % (47-70); Platelet Count 198 K/mm3 (150-450); RBC Distribution Width CV 12.1 % (11.6-14.6); RBC Distribution Width SD 41.9 fl (35.1-43.9); Red Blood Count 4.27 M/mm3 (4.6-6.2); White Blood Count 5.2 K/mm3 (4.4-11.0)
[2023-02-06 07:21] LABS: AST(SGOT) 23 U/L (15-37); Alanine Aminotransfer ALT/SGPT 34 U/L (16-61); Albumin, Serum 3.5 g/dL (3.2-5.0); Alkaline Phosphatase 62 U/L (45-117); Anion Gap 4 (5-15); BUN 16 mg/dL (7-18); BUN/Creat Ratio 18.3 RATIO (10-20); Calcium,Total 8.9 mg/dL (8.5-10.1); Chloride 105 mmol/L (98-107); Cholesterol 121 mg/dL (200); Creatinine, Serum 0.87 mg/dL (0.70-1.30); EST Glomerular Filtration Rate 92 mL/min (>60); Est Glom Filt Rate - Afr Amer 111 mL/min (>60); Globulin 3.6 g/dL (2.2-4.2); Glucose 102 mg/dL (74-106); High Density Lipoprotein 40 mg/dL; PSA,Total - Annual Screen 1.73 ng/mL (0.00-4.00); Potassium 4.1 mmol/L (3.5-5.1); Protein, Total 7.1 g/dL (6.4-8.2); Sodium Level 139 mmol/L (136-145); Triglycerides 116 mg/dL; Very Low Density Lipoprotein 23 mg/dL (5-40)
[2023-02-06 10:04] LABS: Vitamin D,25 Hydroxy 28.7 ng/mL
== END | disposition home or self-care (01) ==
PROVIDERS: PCP Internal Medicine; Referring Provider Internal Medicine; Visit Provider Internal Medicine
DX: Z00.00 Encounter for general adult medical examination without abnormal findings (principal); E55.9 Vitamin D deficiency, unspecified; M19.90 Unspecified osteoarthritis, unspecified site; E78.5 Hyperlipidemia, unspecified; Z13.220 Encounter for screening for lipoid disorders; R52 Pain, unspecified; Z12.5 Encounter for screening for malignant neoplasm of prostate
CPT/HCPCS: 36415; 80053; 80061; 82306; 84153; 84443; 85025; G0103

== ENCOUNTER → 2024-02-12 | Outpatient (CLI) | payer MEDICARE, SELFPAY ==
[2024-02-12 06:44] LABS: Absolute Lymphocyte Count 1.72 X10^3/uL (0.83-4.51); Absolute Neutrophil Count 2.8 X10^3/uL (2.0-7.7); Basophil# 0.04 X10^3/uL; Basophil% 0.8 % (0-1); Eosinophil# 0.13 X10^3/uL; Eosinophils% 2.5 % (0-5); Hematocrit 41.8 % (40-54); Hemoglobin 14.1 g/dL (13.0-16.5); Lymphocyte # 1.72 X10^3/ul (0.83-4.51); Mean Corp Hgb Conc 33.7 g/dL (32-36); Mean Corpuscular Hgb 31.3 pg (27.0-32.0); Mean Corpuscular Volume 92.7 fL (80-94); Monocyte# 0.51 X10^3/uL; Monocyte% 9.8 % (0-10); NRBC Flagged by Analyzer 0 % (0-5); Neutrophil # 2.81 X10^3/uL (2.7-7.7); Neutrophil % 53.7 % (47-70); Platelet Count 189 K/mm3 (150-450); RBC Distribution Width CV 12.1 % (11.6-14.6); RBC Distribution Width SD 41.4 fl (35.1-43.9); Red Blood Count 4.51 M/mm3 (4.6-6.2); White Blood Count 5.2 K/mm3 (4.4-11.0)
[2024-02-12 07:50] LABS: Vitamin D,25 Hydroxy 24.6 ng/mL
[2024-02-12 07:59] LABS: AST(SGOT) 27 U/L (15-37); Alanine Aminotransfer ALT/SGPT 36 U/L (16-61); Albumin, Serum 3.7 g/dL (3.2-5.0); Alkaline Phosphatase 61 U/L (45-117); Anion Gap 4 (5-15); BUN 15 mg/dL (7-18); Chloride 105 mmol/L (98-107); Cholesterol 142 mg/dL (200); Creatinine, Serum 0.88 mg/dL (0.70-1.30); EST Glomerular Filtration Rate 91 mL/min (>60); Est Glom Filt Rate - Afr Amer 109 mL/min (>60); Globulin 3.6 g/dL (2.2-4.2); Glucose 100 mg/dL (74-106); High Density Lipoprotein 36 mg/dL; PSA,Total - Annual Screen 1.82 ng/mL (0.00-4.00); Potassium 4.1 mmol/L (3.5-5.1); Protein, Total 7.3 g/dL (6.4-8.2); Sodium Level 138 mmol/L (136-145); Triglycerides 161 mg/dL; Very Low Density Lipoprotein 32 mg/dL (5-40)
== END | disposition home or self-care (01) ==
LOC: LAB 06:18
PROVIDERS: PCP Internal Medicine; Referring Provider Internal Medicine; Visit Provider Internal Medicine
DX: I10 Essential (primary) hypertension (principal); M19.90 Unspecified osteoarthritis, unspecified site; G47.33 Obstructive sleep apnea (adult) (pediatric); E55.9 Vitamin D deficiency, unspecified; Z12.5 Encounter for screening for malignant neoplasm of prostate; Z13.220 Encounter for screening for lipoid disorders
CPT/HCPCS: 36415; 80053; 80061; 82306; 84153; 84443; 85025; G0103

== ENCOUNTER → 2024-04-12 | Outpatient (CLI) | payer MEDICARE, SELFPAY ==
--- NOTE | 2024-04-12 12:31 | RAD_ITS ---
STUDY: X-RAY CHEST REASON FOR EXAM: Male, 74 years old. Cough TECHNIQUE: PA and lateral views of the chest. COMPARISON: 08/07/2020 FINDINGS: The lungs are clear and expanded. There is no demonstrated pleural abnormality. Normal size heart. Normal mediastinum and [place]. Normal visualized pulmonary arteries. Normal visualized aortic arch and descending thoracic aorta. Normal visualized thoracic spine. Normal visualized ribs, clavicles, and shoulders. There is no demonstrated abnormality of the visualized soft tissue structures of the upper abdomen. RAD/Chest PA and Lateral IMPRESSION: Normal x-ray examination of the chest. Electronically Signed: Tim Li MD at 11:53 EST ,
== END | disposition home or self-care (01) ==
PROVIDERS: PCP Internal Medicine; Referring Provider Nurse Practitioner Family; Visit Provider Nurse Practitioner Family
DX: R05.9 Cough, unspecified (principal)
CPT/HCPCS: 71046

== ENCOUNTER → 2024-08-11 | Outpatient (CLI) | payer MEDICARE, SELFPAY ==
[2024-08-11 17:12] LABS: Absolute Lymphocyte Count 1.69 X10^3/uL (0.83-4.51); Absolute Neutrophil Count 3.6 X10^3/uL (2.0-7.7); Basophil# 0.04 X10^3/uL; Basophil% 0.7 % (0-1); Eosinophil# 0.16 X10^3/uL; Eosinophils% 2.7 % (0-5); Hematocrit 40.7 % (40-54); Hemoglobin 14.3 g/dL (13.0-16.5); Lymphocyte # 1.69 X10^3/ul (0.83-4.51); Lymphocyte % 28.4 % (19-41); Mean Corp Hgb Conc 35.1 g/dL (32-36); Mean Corpuscular Hgb 31.8 pg (27.0-32.0); Mean Corpuscular Volume 90.4 fL (80-94); Mean Platelet Vol. 9.5 fl (6.2-12.0); Monocyte# 0.47 X10^3/uL; Monocyte% 7.9 % (0-10); NRBC Flagged by Analyzer 0 % (0-5); Neutrophil # 3.58 X10^3/uL (2.7-7.7); Neutrophil % 60.1 % (47-70); Platelet Count 207 K/mm3 (150-450); RBC Distribution Width SD 39.6 fl (35.1-43.9)
[2024-08-11 18:08] LABS: Anion Gap 12 (5-15); BUN 14 mg/dL (4-19); Calcium,Total 9.6 mg/dL (7.6-11.0); Carbon Dioxide 22.9 mmol/L (21.0-32.0); Chloride 103 mmol/L (98-108); EST Glomerular Filtration Rate 91 (>60); Glucose 87 mg/dL (70-99); Sodium Level 138 mmol/L (133-145)
== END | disposition home or self-care (01) ==
LOC: LAB 16:32
PROVIDERS: PCP Internal Medicine; Referring Provider Internal Medicine Cardiovascular Disease; Visit Provider Internal Medicine Cardiovascular Disease
DX: R93.1 Abnormal findings on diagnostic imaging of heart and coronary circulation (principal)
CPT/HCPCS: 36415; 80048; 85025

== ENCOUNTER 2024-08-16 07:11 | Day surgery (SDC) | payer MEDICARE, SELFPAY ==
[2024-08-13 07:48] VITALS: BMI 29.1
--- NOTE | 2024-08-16 10:06 | CL.D_ITS ---
Patient Name: CELIA OSMAN Study Date: 08/16/2024 Performing: Jagjit Rod MD Ht: 71 inches 180.34 cm : 1950 Wt: 209 lbs 94.8 kg Age: 74 Gender: male BSA: 2.15 PROCEDURE(S) PERFORMED [id number])LHC/COR/LV CLINICAL PROFILE AND INDICATIONS Indications: Suspected CAD Heart Failure: None Stress/Imaging Coronary Calcium Score: Yes Calcium Score: 2600Calcium Score: 2600 CAD Presentations: No Sxs, no angina. CONCLUSIONS Coronary artery calcification with no high-grade stenosis present. Moderate disease noted in the right coronary artery and mild to moderate disease noted in the left anterior descending artery. Preserved ejection fraction. RECOMMENDATIONS Medical therapy DESCRIPTION OF PROCEDURE The patient arrived to the procedure lab. The risks and benefits of the procedure as well as a full description of our services here and current unavailability of surgical backup were fully explained to the patient and/or their significant other prior to the catheterization. The Timeout was completed, verifying the correct patient and procedure. The patient's procedural site was prepped and draped in the usual fashion. Local anesthetic was given subcutaneously to right radial region with Lidocaine 2%. Using a modified Seldinger technique, arterial access was obtained via the right radial artery, a 6Fr sheath was inserted. Left Coronary Artery selective angiography was performed in multiple views using a 5 Fr. 4.0 [place] catheter. Right Coronary Artery selective angiography was then performed in multiple views using a 5 Fr. 4.0 [place] catheter. Left Ventriculography was performed in YOUNG projection using a 5 Fr. [place] catheter. LV to AO pullback pressures were then recorded.The arterial sheath was pulled and a TR Band was applied for hemostasis CORONARY ANGIOGRAPHY DOMINANCE: Right Dominant LEFT HEART ASSESSMENT Left Ventricular Ejection Fraction: by LV Gram 65 % Normal LV wall motion Normal Left Ventricular systolic function LEFT MAIN: Mild calcification, No significant disease noted LEFT ANTERIOR DESCENDING ARTERY: Moderate calcification, Mild luminal irregularities less than 30% CIRCUMFLEX ARTERY: Mild calcification, Mild luminal irregularities RIGHT CORONARY ARTERY: Severe calcification Moderate proximal stenosis estimated to be 40% in the proximal to mid regions and mild diffuse disease noted in the mid to distal regions. COMPLICATIONS No Complications PROCEDURE MEDICATIONS Versed 1 mg IV Fentanyl 50 mcg IV Versed 1 mg IV Oxygen: 2 L/min via nasal cannula Heparin given IA 08/16/2024 09:42:45 Verapamil 2.5mg, Ntg 200mcgs, 2000 units of Heparin given IA 08/16/2024 09:42:45 SUMMARY OF HEMODYNAMIC DATA Time AIR REST ECG 07:53:29 AO 106/63 (81) SA 09:42:41 LV 118/5, 14 09:53:04 LV 108/6, 11 09:53:12 LV 109/9, 16 09:54:35 LV 109/8, 14 09:54:44 LVp 113/5, 25 09:54:51 AOp 106/51 (76) 09:54:58 10:05:48 Signed By Jagjit Rod MD On 08/16/2024 10:05:55 Jagjit Rod MD
== END 2024-08-16 12:00 | disposition home or self-care (01) ==
PROVIDERS: PCP Internal Medicine; Referring Provider Internal Medicine Cardiovascular Disease; Visit Provider Internal Medicine Cardiovascular Disease
DX: I25.10 Atherosclerotic heart disease of native coronary artery without angina pectoris (principal); I10 Essential (primary) hypertension; E78.49 Other hyperlipidemia; Z96.643 Presence of artificial hip joint, bilateral; Z79.82 Long term (current) use of aspirin; Z79.899 Other long term (current) drug therapy
CPT/HCPCS: 93458; 99152; 99153; Q9967; C1769; C1894

== ENCOUNTER → 2025-02-14 | Outpatient (CLI) | payer MEDICARE, SELFPAY ==
--- OUTSIDE RECORDS SUMMARY | 2025-02-14 06:38 | XMS RPT_ITS | CCD ---
Author Organization [facility] Care Team Providers Care Market Development Manager Name Role Phone Dr. Jia Yanes Primary Care Provider Dr. Jia Yanes Referring Provider [phone] Dr. Stiven Concepcion Attending Provider Dr. Stiven Concepcion Other Provider [phone] NONE, NONE Primary Care Unavailable MAX JOSE MD Admitting Unavailable MAX JOSE MD Consulting Unavailable MAX JOSE MD Attending Unavailable CHRISTIAN FATIMA DO K Consulting Unavailable TO [phone], PETE Irizarry Consulting Unava ilable NONE, NONE Consulting Unavailable Dr. Jia Yanes Primary Care Provider Dr. Jia Yanes Attending Provider [phone] Dr. Jia Yanes Referring Provider [phone] Dr. Jia Yanes Primary Care Provider Dr. Jia Yanes Attending Provider [phone] Jia Yanes MD Primary Care Provider [phone] Dr. Jia Yanes MD Referring Provider Dr. Jagjit Rod MD Attending Provider Dr. Jagjit Rod MD Referring Provider [phone] Kee Montana Attending Provider [phone] Jagjit Rod Referring Unavailable Jagjit Rod Attending Unavailable Jia Yanes Primary Care Unavailable Jia Yanes Primary Care Unavailable Bacilio Adame Attending Unavailable Denise, Jia Referring Unavailable Denise, Jia Primary Care Unavailable Roof VALIDATION INTERN, Kee H Attending Unavailable Roof VALIDATION INTERN, Kee H Referring Unavailable Denise, Jia Primary Care Unavailable Denise, Jia Attending Unavailable Denise, Jia Referring Unavailable Denise, Jia Attending Unavailable Denise, Jia Referring Unavailable Denise, Jia Primary Care Unavailable Viola, Jagjit Referring Unavailable Viola, Jagjit Attending Unavailable Denise, Jia Primary Care Unavailable Denise, Jia Attending Unavailable Denise, Jia Primary Care Unavailable Denise, Jia Referring Unavailable Roof VALIDATION INTERN, Kee H Attending Unavailable Denise, Jia Primary Care Unavailable Viola, Jagjit Attending Unavailable Denise, Jia Referring Unavailable Denise, Jia Primary Care Unavailable Denise, Jia Primary Care Unavailable Roof VALIDATION INTERN, Kee H Attending Unavailable Denise, Jia Referring Unavailable Denise, Jia Primary Care Unavailable Best Bergman Attending Unavailable Denise, Jia Referring Unavailable Viola, Jagjit Attending Unavailable Allergies Allergy Classification Reported Allergen(s) Allergy Type Date of Onset Reaction(s) Facility (6 sources) Sulfonamides (Antibiotic); Translations: [Sulfa (Sulfonamide Antibiotics)] Allergy to substance 2 [facility] Repository Medications Current Medications Medication Drug Class(es) Dates Sig (Normalized) Sig (Original) aspirin 81 mg delayed release oral tablet (6 sources) Platelet Aggregation Inhibitor, Nonsteroidal Anti-inflammatory Drug Start: 08-11-2024 End: 12-09-2024 take 1 tablet by mouth once daily Aspirin (Adult Aspirin Regimen) 81 mg tablet,delayed release (DR/EC) Active 81 mg PO DAILY 90 3 December 09, 2024 8:32am Start: 12-23-2019 End: 01-27-2020 take 1 tablet by mouth twice daily Aspirin 81 MG tablet,chewable Discontinued 81 mg PO TWICE A DAY 60 0 December 23, 2019 12:00am January 27, 2020 2:57pm Take 81 mg aspirin twice daily for 4 weeks postoperatively for DVT prophylaxis atorvastatin 10 mg oral tablet (20 sources) HMG-CoA Reductase Inhibitor Start: 11-09-2024 take 1 tablet by mouth at bedtime Atorvastatin 10 mg tablet Active 10 mg PO AT BEDTIME 90 3 November 09, 2024 10:50am cholesterol Start: 09-09-2024 End: 11-09-2024 take 10 mg by mouth at bedtime Atorvastatin 20 mg tabl et Discontinued 10 mg PO AT BEDTIME 0 0 September 09, 2024 9:21am November 09, 2024 10:50am cholesterol Start: 08-16-2024 End: 09-09-2024 take 1 tablet by mouth at bedtime Atorvastatin 20 mg tablet Discontinued 20 mg PO AT BEDTIME 90 3 August 16, 2024 10:00am September 09, 2024 9:22am cholesterol Start: 11-10-2019 End: 08-16-2024 take 1 tablet by mouth at bedtime Atorvastatin (Lipitor) 10 mg tablet Discontinued 10 mg PO AT BEDTIME 90 3 December 11, 2023 8:12am August 16, 2024 10:00am cholesterol cholecalciferol 0.025 mg oral capsule (5 sources) Vitamin D Start: 08-11-2024 take 1 capsule by mouth once daily Cholecalciferol (Vitamin D3) 25 mcg (1,000 unit) capsule Active 25 ug PO daily August 11, 2024 12:00am Start: 11-10-2019 End: 01-27-2020 take 1 capsule by mouth at bedtime Cholecalciferol (Vitamin D3) 25 mcg (1,000 unit) capsule Discontinued 25 ug PO AT BEDTIME November 10, 2019 12:00am January 27, 2020 2:57pm supplement Chondroitin Sulfates / Glucosamine (4 sources) Start: 12-09-2024 Glucosamine-Ch ondroitin 250-200 mg tablet Active 1 {tbl} PO DAILY December 09, 2024 12:00am give after food/meal Start: 02-04-2022 End: 12-09-2024 osteobiflex Discontinued PO 1 time daily February 04, 2022 12:00am December 09, 2024 8:14am Start: 02-04-2022 osteobiflex Ac tive PO 1 time daily February 04, 2022 12:00am Multivitamin preparation (3 sources) Start: 01-27-2020 take 1 tablet by mouth once daily Multivitamin Active 1 TABLET PO DAILY January 27, 2020 2:58pm Start: 01-27-2020 take 1 tablet by leonor once daily Multivitamin Active 1 TABLET PO DAILY January 27, 2020 12:00am Multivitamin tablet (1 source) Start: 01-27-2020 Multivitamin t ablet Active 1 {tbl} PO DAILY January 27, 2020 12:00am Jefferson-3 Fatty Acids (Fish Oi l Concentrate) 1,000 mg capsule (5 sources) Start: 08-11-2024 Jefferson-3 Fatty Acids (Fish Oil Concentrate) 1,000 mg capsule Active 500 mg PO daily August 11, 2024 3:50pm Start: 10-12-2020 take 1 capsule by mo uth twice daily Jefferson-3 Fatty Acids (Fish Oil Concentrate) 1,000 mg capsule Active 1000 MG PO TWICE A DAY October 12, 2020 1:25pm Start: 10-12-2020 End: 08-11-2024 take 1 capsule by mouth twice daily Jefferson-3 Fatty Acids (Fish Oil Concentrate) 1,000 mg capsule Discontinued 1000 mg PO TWICE A DAY October 12, 2020 12:00am August 11, 2024 3:51pm Start: 10-12-2020 take 1 capsule by mo uth twice daily Jefferson-3 Fatty Acids (Fish Oil Concentrate) 1,000 mg capsule Active 1000 MG PO TWICE A DAY October 12, 2020 12:00am tumeric (4 sources) Start: 01-27-2020 take 500 mg by mouth once daily tumeric Active 500 MG PO DAILY January 27, 2020 2:58pm Start: 01-27-2020 End: 02-04-2022 take 500 mg by mouth once daily tumeric Discontinued 500 mg PO DAILY 0 January 27, 2020 12:00am February 04, 2022 1:06pm Start: 01-27-2020 End: 02-04-2022 take 500 mg by mouth once daily tumeric Discontinued 500 MG PO DAILY January 27, 2020 12:00am February 04, 2022 1:06pm Completed/Discontinued Medications Medication Drug Class(es) Dates Sig (Normalized) Sig (Original) acetaminophen 500 mg oral tablet (4 sources) Start: 12-23-2019 End: 01-27-2020 Acetaminophen 500 MG tablet Discontinued 1000 mg PO EVERY 8 HOURS 100 0 December 23, 2019 12:00am January 27, 2020 2:57pm Do not take more than 3000 mg Tylenol in a 24-hour period. Start: 12-23-2019 End: 01-27-2020 take 3000 mg by mouth every eight hours Acetaminophen Discontinued 1000 MG PO EVERY 8 HOURS 100 December 23, 2019 12:00January 27, 2020 2:57pm Do not take more than 3000 mg Tylenol in a 24-hour period. azithromycin 250 mg oral tablet (3 sources) Macrolide Antimicrobial Start: 03-18-2024 End: 04-11-2024 take 2-5 tablets by mouth once daily Azithromycin 250 mg tablet Discontinued 0 PO .COMPLEX 6 0 March 18, 2024 1:00am April 11, 2024 9:15am take 500 mg today (day 1), then 250 mg for 4 days (days 2-5) PO Start: 08-05-2022 End: 02-03-2023 take 2-5 tablets by mouth once daily Azithromycin 250 mg tablet Discontinued 0 PO .COMPLEX 6 0 August 05, 2022 12:00am February 03, 2023 1:05pm take 500 mg today (day 1), then 250 mg for 4 days (days 2-5) PO benzonatate 100 mg oral capsule (1 source) Non-narcotic Antitussive Start: 03-18-2024 End: 04-11-2024 take 2 capsules by mouth three times daily as needed for cough Benzonatate 100 mg capsule Discontinued 200 mg PO THREE TIMES A DAY as needed for cough 30 0 March 18, 2024 1:00am April 11, 2024 9:15am docusate sodium 50 mg / sennosides, half-way 8.6 mg oral tablet (4 sources) Start: 12-23-2019 End: 01-27-2020 Sennosides-Docusat e Sodium 1 TABLET tablet Discontinued 2 {tbl} PO TWICE A DAY 14 0 December 23, 2019 12:00January 27, 2020 2:57pm Take until first bowel movement, then as needed Start: 12-23-2019 End: 01-27-2020 Sennosides-Docusate Sodium D iscontinued 2 TABLET PO TWICE A DAY December 23, 2019 12:00January 27, 2020 2:57pm Take until first bowel movement, then as needed famotidine 20 mg oral tablet (4 sources) Histamine-2 Receptor Antagonist Start: 12-23-2019 End: 01-27-2020 take 1 tablet by mouth once daily Famotidine 20 MG tablet Discontinued 20 mg PO DAILY 30 0 December 23, 2019 12:00am January 27, 2020 2:57pm fexofenadine hydrochloride 60 mg oral tablet (2 sources) Histamine-1 Receptor Antagonist Start: 08-05-2022 End: 02-03-2023 take 1 tablet by mouth every twelve hours Fexofenadine (Xochilt Allergy) 60 mg tablet Discontinued 60 mg PO Q12H August 05, 2022 12:00am February 03, 2023 1:05pm fluticasone propionate 0.05 mg/actuat metered dose nasal spray (4 sources) Corticosteroid Start: 08-21-2020 End: 02-09-2024 Fluticasone Propionate (Flonase Allergy Relief) 50 mcg/actuation spray,suspension Discontinued 1 NMA INTRANASAL NEEDED as needed for ALLERGIES August 21, 2020 12:00am February 09, 2024 7:54am administer into each nostril Start: 08-21-2020 Fluticasone Pr opionate (Flonase Allergy Relief) 50 mcg/actuation spray,suspension Active 1 SPRAY INTRANASAL NEEDED August 21, 2020 12:00am administer into each nostril Dgzpmnja-Yluk-Ljd3-C-Christopher-Nolan sw (6 sources) Start: 12-09-2019 End: 12-23-2019 Foszhwsj-Qafm-Avh7-C-Christopher-Nolan sw Discontinued 1 EACH PO DAILY December 09, 2019 9:09am December 23, 2019 9:24am Start: 12-09-2019 End: 12-23-2019 Ukfcdpfj-Kkfp-Wif9-C-Christopher-Nolan sw Discontinued 1 EACH PO DAILY December 09, 2019 12:00am December 23, 2019 9:24am Start: 03-18-2019 End: 11-10-2019 take 1 tablet by mouth once daily Kzieldje-Dpdr-Brf7-C-Christopher-Bosw Discontin ued 1 TABLET PO DAILY March 18, 2019 3:18pm November 10, 2019 11:17am Start: 03-18-2019 End: 11-10-2019 take 1 tablet by mouth once daily Ixgehhuw-Egio-Tew5-C-Christopher-Bosw Discontin ued 1 TABLET PO DAILY March 18, 2019 1:00am November 10, 2019 11:17am Lmkqukxg-Ihil-Rwl2-C-Christopher-Nolan sw 1 EACH tablet (2 sources) Start: 12-09-2019 End: 12-23-2019 take 1 tablet by mouth once daily Dkynloyj-Xxzm-Xof1-C-Christopher-Bosw 1 EACH tablet Discontinued 1 NMA PO DAILY December 09, 2019 12:00am December 23, 2019 9:24am supplement Start: 03-18-2019 End: 11-10-2019 take 1 tablet by mouth once daily Hsvlqwez-Snll-Lni7-C-Christopher-Bosw 1 EACH ta blet Discontinued 1 {tbl} PO DAILY March 18, 2019 1:00am November 10, 2019 11:17am lisinopril 10 mg oral tablet (6 sources) Angiotensin Converting Enzyme Inhibitor Start: 12-19-2022 End: 12-11-2023 take 1 tablet by mouth once daily Lisinopril 10 mg tablet Discontinued 10 mg PO DAILY 90 3 December 10, 2023 12:12pm December 11, 2023 8:11am loratadine 10 mg oral capsule (4 sources) Start: 08-21-2020 End: 08-05-2022 Loratadine 10 mg capsule Discontinued 10 mg PO NEEDED as needed for ALLERGIES August 21, 2020 12:00am August 05, 2022 1:35pm meclizine hydrochloride 25 mg oral tablet (2 sources) Antiemetic Start: 09-04-2022 End: 02-09-2024 take 1 tablet by mouth three times daily as needed Meclizine 25 mg tablet Discontinued 25 mg PO THREE TIMES A DAY as needed for motion sickness 14 0 September 04, 2022 12:00am February 09, 2024 7:54am meloxicam 7.5 mg oral tablet (4 sources) Nonsteroidal Anti-inflammatory Drug Start: 12-23-2019 End: 01-27-2020 take 1 tablet by mouth twice daily Meloxicam 7.5 MG tablet Discontinued 7.5 mg PO TWICE A DAY 60 0 December 23, 2019 12:00am January 27, 2020 2:57pm Do not take any other nonsteroidal anti-inflammatories while using meloxicam/Mobic. methylPREDNISolone 4 mg oral tablet (2 sources) Corticosteroid Start: 08-05-2022 End: 08-11-2022 take 1 tablet by mouth once Methylprednisolone (Medrol (Delano)) 4 mg tablets,dose pack Discontinued 4 mg PO per package directions 21 6 0 August 05, 2022 12:00am August 10, 2022 12:00am August 11, 2022 12:04am mupirocin 0.02 mg/mg topical ointment (4 sources) RNA Synthetase Inhibitor Antibacterial Start: 12-22-2019 End: 08-21-2020 Mupirocin 2% ointment Discontinued 1 APPLICATIO NARES TWICE A DAY December 22, 2019 12:00am August 21, 2020 9:17am Nirmatrelvir-Ritonavir (5 sources) Start: 03-27-2022 End: 08-05-2022 Nirmatrelvir-Ritonavi r (Paxlovid (Eua)) 300 mg (150 mg x 2)-100 mg tablets,dose pack Discontinued 0 PO .COMPLEX 30 March 27, 2022 1:00am August 05, 2022 1:35pm take TWO 150 mg tablets of nirmatrelvir with ONE 100 mg tablet of ritonavir twice daily for 5 days PO Start: 03-27-2022 End: 08-05-2022 Nirmatrelvir-Ritonavir (Paxl ovid (Eua)) 300 mg (150 mg x 2)-100 mg tablets,dose pack Discontinued 0 PO .COMPLEX March 27, 2022 1:00am August 05, 2022 1:35pm take TWO 150 mg tablets of nirmatrelvir with ONE 100 mg tablet of ritonavir twice daily for 5 days PO Start: 09-06-2021 End: 02-04-2022 Nirmatrelvir-Ritonavir 150 m g x 2- 100 mg tablet Discontinued 0 PO .COMPLEX 30 September 06, 2021 12:00am February 04, 2022 1:06pm take TWO 150 mg tablets of nirmatrelvir with ONE 100 mg tablet of ritonavir twice daily for 5 days PO. NO FLONASE WHILE ON THIS MEDICATION. Start: 09-06-2021 End: 02-04-2022 Nirmatrelvir-Ritonavir Disco ntinued 0 PO .COMPLEX September 06, 2021 12:00am February 04, 2022 1:06pm take TWO 150 mg tablets of nirmatrelvir with ONE 100 mg tablet of ritonavir twice daily for 5 days PO. NO FLONASE WHILE ON THIS MEDICATION. oxyCODONE hydrochloride 5 mg oral tablet (8 sources) Opioid Agonist Start: 12-23-2019 End: 12-27-2019 take 5-10 mg by mouth every four hours as needed for pain Oxycodone 5 MG tablet Discontinued 5 - 10 mg PO EVERY 4 HOURS NEEDED as needed for Pain Score 4-10/10 48 4 0 December 23, 2019 December 26, 2019 12:00am December 27, 2019 12:02am Presence of left artificial hip joint Start: 03-19-2019 End: 04-02-2019 take 5-10 mg by mouth every four hours as needed for pain Oxycodone 5 MG tablet Discontinued 5 - 10 mg PO EVERY 4 HOURS NEEDED as needed for Pain Score 4-10/10 56 7 0 March 26, 2019 April 01, 2019 1:00am April 02, 2019 1:10am Other acute postprocedural pain predniSONE 20 mg oral tablet (1 source) Start: 04-11-2024 End: 04-16-2024 take 2 tablets by mouth once daily Prednisone 20 mg tablet Discontinued 40 mg PO daily 10 5 0 April 11, 2024 1:00am April 15, 2024 1:00am April 16, 2024 1:11am Turmeric extract (4 sources) Start: 03-18-2019 End: 12-23-2019 take 400 mg by mouth once daily Turmeric Discontinued 400 MG PO DAILY March 18, 2019 6:16pm December 23, 2019 9:24am Start: 03-18-2019 End: 12-23-2019 take 1 capsule by mouth once daily Turmeric 400 MG capsule Discontinued 400 mg PO DAILY March 18, 2019 1:00am December 23, 2019 9:24am Start: 03-18-2019 End: 12-23-2019 take 400 mg by mouth once daily Turmeric Discontinued 400 MG PO DAILY March 18, 2019 1:00am December 23, 2019 9:24am Problems Active Problems Problem Classification Problem Date Documented Da te Episodic/Chronic Acute bronchitis (2 sources) Acute bronchitis; Translations: [Acute bronchitis, unspecified] 08-05-2022 Episodic Conditions associated with dizziness or vertigo (2 sources) Vertigo; Translations: [Dizziness and giddiness] 09-04-2022 Episodic Diabetes mellitus without complication (1 source) Hyperglycemia, unspecified; Translations: [Hyperglycemia, unspecified] Onset: 02-10-2025 Episodic Disorders of lipid metabolism (7 sources) Hyperlipidemia; Translations: [Hyperlipidemia, unspecified] Onset: 02-10-2025 Chronic Essential hypertension (7 sources) Essential hypertension; Translations: [Essential (primary) hypertension] Onset: 07-20-2024 02-03-2023 Chronic Fracture of lower limb (4 sources) Fracture of patella; Translations: [Unspecified fracture of left patella, initial encounter for closed fracture] 03-18-2019 Episodic Nonspecific chest pain (4 sources) Chest pain; Translations: [Chest pain, unspecified] 08-08-2020 Episodic Nutritional deficiencies (1 source) Vitamin D deficiency, unspecified; Translations: [Vitamin D deficiency, unspecified] Onset: 02-10-2025 Chronic Osteoarthritis (7 sources) Osteoarthritis; Translations: [Unspecified osteoarthritis, unspecified site] Onset: 02-10-2025 Chronic Other and unspecified benign neoplasm (4 sources) History of polyp of colon; Translations: [Personal history of colonic polyps] 08-28-2021 Episodic Other and unspecified benign neoplasm (1 source) Personal history of colonic polyps; Translations: [Personal history of colonic polyps] Episodic Other connective tissue disease (8 sources) History of repair of hip joint; Translations: [Presence of right artificial hip joint] 02-05-2021 Chronic Comment on above: 10/17/20 Other connective tissue disease (1 source) Presence of left artificial hip joint; Translations: [Hip joint replacement] Chronic Other connective tissue disease (1 source) Presence of right artificial hip joint; Translations: [Hip joint replacement] Chronic Other ear and sense organ disorders (4 sources) Hearing loss; Translations: [Unspecified hearing loss, unspecified ear] 08-07-2020 Chronic Other ear and sense organ disorders (1 source) Unspecified hearing loss, unspecified ear; Translations: [Unspecified hearing loss] Chronic Other ear and sense organ disorders (3 sources) Impacted cerumen; Translations: [Impacted cerumen, right ear] 02-03-2023 Episodic Other ear and sense organ disorders (1 source) Impacted cerumen, right ear; Translations: [Impacted cerumen] 02-03-2023 Episodic Other lower respiratory disease (1 source) Cough; Translations: [Cough] 08-06-2024 Episodic Other non-traumatic joint disorders (2 sources) Pain in left wrist; Translations: [PAIN IN LEFT WRIST] Onset: 12-16-2021 Episodic Other screening for suspected conditions (not mental disorders or infectious disease) (9 sources) Patient encounter status; Translations: [Encounter for screening for malignant neoplasm of colon] Onset: 12-09-2024 07-16-2021 Episodic Other upper respiratory disease (4 sources) Seasonal allergy; Translations: [Other seasonal allergic rhinitis] 01-27-2020 Chronic Residual codes; unclassified (4 sources) Obstructive sleep apnea syndrome; Translations: [Obstructive sleep apnea (adult) (pediatric)] 01-27-2020 Chronic Residual codes; unclassified (3 sources) Obstructive sleep apnea (adult) (pediatric); Translations: [Obstructive sleep apnea (adult)(pediatric)] Onset: 02-10-2025 Chronic Residual codes; unclassified (4 sources) Generalized aches and pains; Translations: [Pain, unspecified] 03-06-2021 Episodic Sprains and strains (3 sources) Sprain of ankle; Translations: [Sprain of unspecified ligament of right ankle, initial encounter] 02-03-2023 Episodic Unclassified (1 source) Cough, unspecified; Translations: [Cough, unspecified] Onset: 05-06-2024 Unclassified (1 source) Subacute cough; Translations: [Subacute cough] Onset: 04-11-2024 Viral infection (3 sources) Disease caused by 2019-nCoV; Translations: [COVID-19] 09-06-2021 Episodic Past or Other Problems Problem Classification Problem Date Documented Da te Episodic/Chronic Malaise and fatigue (5 sources) Fatigue; Translations: [Other fatigue] Onset: 09-23-2024 03-06-2021 Episodic Other ear and sense organ disorders (1 source) Impacted cerumen, bilateral; Translations: [Impacted cerumen, bilateral] Onset: 04-11-2024 Episodic Results Test Name Value Interpretation Reference Range Facility /[place] 02-10-2025 /[facility] [address] [facility] [place] [id number] OFFICE VISIT Date of Service: 02/10/25 MR#: [id number] Acct: [id number] Name: CELIA OSMAN Rep #: [id number] : 1950 Provider: Dr. Jia pastrana MD Age/Sex: 75/M Location: [facility] Status: Signed with Addenda ADDENDUM by Merry Moran RN on 02/10/25 at 0959 Office Procedure Documentation entered by Merry Moran RN 02/10/25 09:59: Cerumen Removal Procedure BMS Cerumen Removal Procedure Procedure performed by: Merry Moran Method of removal: irrigation From which ear canal was the cerumen removed: bilateral Amount of Cerumen: small Patient tolerated procedure: well Complications: none Date cc: * Signed Intake Vital Signs 02/09/24 07:56 12/09/24 08:05 02/10/25 07:59 Height 5 ft 11 in 5 ft 11 in 5 ft 11 in Weight: 202 lb 2 oz BMI 28.1 BP 138/74 H Blood Pressure Location Lt brachial Position Sitting Respiration 16 Pulse 58 L Pulse Source Monitor Temp 98.0 F Temp Source Temporal Pulse Oximetry (%) 97 Oxygen Delivery Method room air Intake Visit Reasons: Annual/Physical Chief Complaint: No acute concerns Performing Arts Technicians Required: No Accompanied by: Self Is patient in pain?: No Allergies Sulfa (Sulfonamide Antibiotics) Allergy (Verified 02/10/25 07:54) Hives Medications ???Medication ???Instructions ???Recorded ???Confirmed ???Type multivitamin 1 tab PO DAILY 01/27/20 02/10/25 H istory lisinopril 10 mg tablet 10 mg PO DAILY #90 tabs 12/11/23 1 Rx cholecalciferol (vitamin D3) 25 25 mcg PO QDAY 08/11/24 02/10/25 H istory mcg (1,000 unit) capsule omega-3 fatty acids 1,000 mg 500 mg PO QDAY 08/11/24 02/10/25 H istory capsule (Fish Oil Concentrate) atorvastatin 10 mg tablet 10 mg PO QHS cholesterol #90 tabs 11/09/24 02/10/25 Rx aspirin 81 mg tablet,delayed 81 mg PO DAILY #90 tabs 12/09/24 1 Rx release (Adult Aspirin Regimen) glucosamine-chondroitin 250 mg-200 1 tab PO DAILY 12/09/24 02/10/25 History mg tablet melatonin 1 mg tablet 2 mg PO HS PRN 02/10/25 02/10/25 H istory Have you fallen in the past year?: No PFSH Medical History (Updated 02/10/25 @ 09:[address] Jia Yanes MD) Impacted cerumen of both ears Essential hypertension Fatigue Abnormal CT scan of heart Vertigo Arthritis BiPAP (biphasic positive airway pressure) dependence WILLIE (obstructive sleep apnea) Hearing loss Osteoarthritis Seasonal allergies Other and unspecified hyperlipidemia Surgical History History of right hip replacement History of left hip replacement History of testicular surgery History of cataract extraction left wrist left knee Family History Mother Breast cancer CVA (cerebral vascular accident) Grandfather CVA (cerebral vascular accident) Arthritis Grandmother CVA (cerebral vascular accident) Mental disorder Social History Smoking Status: Never smoker alcohol intake: never substance use type: does not use what type of physical activity do you participate in: walking, bicycling and swimming HPI HPI Chief Complaint: No acute concerns Details: CELIA OSMAN, is a 75 M who presents to the office today for annual follow-up. 75-year-old gentleman who has a history of essential hypertension, hyperlipidemia on atorvastatin 10 mg p.o. daily for primary prevention. Lisinopril 10 mg daily. Otherwise he takes glucosamine/chondroitin , aspirin, multivitamin and melatonin as needed as well as omega 3 fatty acids. Overall is doing well. He just had a few questions which we answered today. We reviewed the vitamin D. 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 Labs are due for update at this point. Over the last few months, he underwent a calcium CT score which was abnormal. That prompted heart catheterization which showed several areas of highly calcified but nonobstructive disease. He has been very diligent over the last number of years with diet, and physical activity. He is not having any chest pain, chest tightness or other concerns that way at this point. He has no change in bowel movements. No dysuria, urgency or frequency. Up between 2 and 3 times nightly, depending on the volume that he drinks. He states when he does get up, he has normal volumes. Stream perhaps is slightly narrower over the years but no obstructive symptoms otherwise. Review of systems per chart. Physical exam. Vital signs on chart. Bilateral intraocu (more content not included)... Normal [facility] Cardiology Visit Reporton Cardiology Visit Report [facility] [facility] 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 He tells me that he was chatting with his PROPERTY WORKER who told him about this test called a calcium score and convinced him to go take 1. He denies any chest pain or shortness with or paroxysmal nocturnal dyspnea or pedal edema no neck arm or jaw discomfort suggest angina. He underwent to the coronary calcium score and it demonstrated an elevated score with a total Agatston score of 2600 with a score of 1679 in the right coronary artery, 355 in the circumflex artery and 506 in the left anterior descending artery. Heart cath station 08/16/2024 showed coronary artery calcification with no high-grade stenosis present with moderate disease noted in the right coronary artery and mild to moderate disease noted in the left anterior descending artery. Ejection fraction was noted be preserved. Medical therapy was recommended. He denies chest, arm, jaw, or neck discomfort. He denies palpitations. He denies bilateral lower extremity edema. He denies claudication. He denies shortness of breath with activity, shortness of breath at rest, orthopnea, or PND. He denies chronic cough. He denies significant, sudden weight gain. He denies lightheadedness, dizziness, near-syncope, or syncope. He denies blood in urine, blood in stool, or epistaxis. He denies fever with chills. He denies myalgia. He denies fatigue. His exercise level has remained stable. Intake Vital Signs 08/11/24 15:46 08/16/24 07:52 12/09/24 08:05 Height 5 ft 11 in 5 ft 11 in 5 ft 11 in Weight: 200 lb BMI 27.8 BP 119/68 Blood Pressure Location Lt brachial Position Sitting Respiration 16 Pulse 60 Pulse Source NIBP Intake Visit Reasons: 4 M FU [employer] Required: No Is patient in pain?: No Allergies Sulfa (Sulfonamide Antibiotics) Allergy (Verified 12/09/24 08:12) Hives Medications ???Medication ???Instructions ???Recorded ???Confirmed ???Type multivitamin 1 tab PO DAILY 01/27/20 12/09/24 H istory lisinopril 10 mg tablet 10 mg PO DAILY #90 tabs 12/11/23 0 12/09/24 Rx cholecalciferol (vitamin D3) 25 25 mcg PO QDAY 08/11/24 12/09/24 H istory mcg (1,000 unit) capsule omega-3 fatty acids 1,000 mg 500 mg PO QDAY 08/11/24 12/09/24 H istory capsule (Fish Oil Concentrate) atorvastatin 10 mg tablet 10 mg PO QHS cholesterol #90 tabs 11/09/24 12/09/24 Rx aspirin 81 mg tablet,delayed 81 mg PO DAILY #90 tabs 12/09/24 0 12/09/24 Rx release (Adult Aspirin Regimen) glucosamine-chondroitin 250 mg-200 1 tab PO DAILY 12/09/24 12/09/24 History mg tablet Ejection fraction %: 59 Have you fallen in the past year?: No PFSH Medical History Essential hypertension Fatigue Abnormal CT scan of heart Impacted cerumen of both ears Vertigo Arthritis BiPAP (biphasic positive airway pressure) dependence WILLIE (obstructive sleep apnea) Hearing loss Osteoarthritis Seasonal allergies Other and unspecified hyperlipidemia Surgical History History of right hip replacement History of left hip replacement History of testicular surgery History of cataract extraction left wrist left knee Family History Mother Breast cancer CVA (cerebral vascular accident) Grandfather CVA (cerebral vascular accident) Arthritis Grandmother CVA (cerebral vascular accident) Mental disorder Social History Smoking Status: Never smoker alcohol intake: never substance use type: does not use what type of physical activity do you participate in: walking, bicycling and swimming ROS Const Const: Negative for fatigue or weakness Eyes Eyes: Negative for change in vision ENT ENT: Negative for dizziness or balance problems Cardio Chest Pain: No Palpitations: No Edema: None Muscle aches with walking: None Resp Respiratory: Negative for SOB with activity, SOB at rest or SOB orthopnea SOB lying down GI GI: Negative nausea or heartburn : Negative for hematuria or frequent nighttime urination/ nocturia Musc Musc: Negative for balance problems Skin Skin: Negative non-healing lesions or rash Neuro Neuro: Negative for dizziness, lightheadedness, near syncope, syncope or weakness Endo Endo: Negative for fatigue Allergy Allergy/Immunology: Nega (more content not included)... Normal [facility] Cardiac Cath Diagnosticon Cardiac Cath Diagnostic [facility] Imaging Services [address] [place] [address] Cardiac Cath Diagnostic MR#: [id number] Acct: [id number] Name: CELIA OSMAN Rep #: [id number] : 1950 74 From: Jagjit Rod MD PCP: Dr. Jia Yanes MD Status:[facility] [place] Patient Name: CELIA OSMAN Study Date: 08/16/2024 Performing: Jagjit Rod MD Ht: 71 inches 180.34 cm : 1950 Wt: 209 lbs 94.8 kg Age: 74 Gender: male BSA: 2.15 PROCEDURE(S) PERFORMED [facility]-([id number])LHC/COR/LV CLINICAL PROFILE AND INDICATIONS Indications: Suspected CAD Heart Failure: None Stress/Imaging Coronary Calcium Score: Yes Calcium Score: 2600Calcium Score: 2600 CAD Presentations: No Sxs, no angina. CONCLUSIONS Coronary artery calcification with no high-grade stenosis present. Moderate disease noted in the right coronary artery and mild to moderate disease noted in the left anterior descending artery. Preserved ejection fraction. RECOMMENDATIONS Medical therapy DESCRIPTION OF PROCEDURE The patient arrived to the procedure lab. The risks and benefits of the procedure as well as a full description of our services here and current unavailability of surgical backup were fully explained to the patient and/or their significant other prior to the catheterization. The Timeout was completed, verifying the correct patient and procedure. The patient's procedural site was prepped and draped in the usual fashion. Local anesthetic was given subcutaneously to right radial region with Lidocaine 2%. Using a modified Seldinger technique, arterial access was obtained via the right radial artery, a 6Fr sheath was inserted. Left Coronary Artery selective angiography was performed in multiple views using a 5 Fr. 4.0 [place] catheter. Right Coronary Artery selective angiography was then performed in multiple views using a 5 Fr. 4.0 [place] catheter. Left Ventriculography was performed in YOUNG projection using a 5 Fr. Pigtail catheter. LV to AO pullback pressures were then recorded.The arterial sheath was pulled and a TR Band was applied for hemostasis CORONARY ANGIOGRAPHY DOMINANCE: Right Dominant LEFT HEART ASSESSMENT Left Ventricular Ejection Fraction: by LV Gram 65 % Normal LV wall motion Normal Left Ventricular systolic function LEFT MAIN: Mild calcification, No significant disease noted LEFT ANTERIOR DESCENDING ARTERY: Moderate calcification, Mild luminal irregularities less than 30% CIRCUMFLEX ARTERY: Mild calcification, Mild luminal irregularities RIGHT CORONARY ARTERY: Severe calcification Moderate proximal stenosis estimated to be 40% in the proximal to mid regions and mild diffuse disease noted in the mid to distal regions. COMPLICATIONS No Complications PROCEDURE MEDICATIONS Versed 1 mg IV Fentanyl 50 mcg IV Versed 1 mg IV Oxygen: 2 L/min via nasal cannula Heparin given IA 08/16/2024 09:42:45 Verapamil 2.5mg, Ntg 200mcgs, 2000 units of Heparin given IA 08/16/2024 09:42:45 SUMMARY OF HEMODYNAMIC DATA Time AIR REST ECG 07:53:29 AO 106/63 (81) SA 09:42:41 LV 118/5, 14 09:53:04 LV 108/6, 11 09:53:12 LV 109/9, 16 09:54:35 LV 109/8, 14 09:54:44 LVp 113/5, 09:54:51 AOp 106/51 (76) 09:54:58 10:05:48 Signed By Jagjit Rod MD On 08/16/2024 10:05:55 Jagjit Rod MD 08/16/24 1006 Date Jagjit Rod MD Cosigner Signature: Date (if indicated) CC: Dr. Jagjit Rod MD; Dr. Jia Yanes MD Date Dictated: 08/16/24940 Date Transcribed: 08/16/241004 Healthcare Insurance Sales Agent: [place] Signed Normal [facility] 12 Lead EKG performed by [facility] on 08-11-2024 12 Lead EKG performed by [address] [address] 12 Lead EKG performed by [facility] 08/11/24 1546 MR#: [id number] Acct: [id number] Name: CELIA OSMAN Rep #: [id number] : 1950 74 From: Jagjit Rod MD Attending Dr: Dr. Jagjit Rod MD Status: DEP A MB Ordering Dr: Jagjit Rod MD Date: 08/11/24 [place] [facility] [place]: M C Admitted: [facility]12 Lead EKG performed by [facility] ECG Report Interpretation ---Sinus Rhythm WITHIN NORMAL LIMITSElectronically signed on 08/16/2024 at 17:35 by Jagjit Rodwood Software Version [id number] 08/16/24 1741 Date Jagjit Rod MD CC: Dr. Jia Yanes MD Date Dictated: 08/11/241545 Date Transcribed: 08/11/241545 Healthcare Insurance Sales Agent: [place] Signed Normal [facility] Absolute lymphocyte countOrd ered By: Jagjit Rod on 08-11-2024 Lymphocytes Auto (Unsp spec) [#/Vol] 1.69 10*3/uL 0.83-4.51 [facility] Absolute neutrophil countOrd ered By: Jagjit Rod on 08-11-2024 Neutrophils (Bld) [#/Vol] 3.6 10*3/uL 2.0-7.7 [facility] Anion gap in Serum or Plasma Ordered By: Jagjit Rod on 08-11-2024 Anion gap [Moles/Vol] 12 mmol/L 5-15 [facility] Automated lymphocyte count a s percentage of total leukocytesOrdered By: Jagjit Rod on 08-11-2024 Lymphocytes/100 WBC Auto (Unsp spec) 28.4 % 19-41 [facility] BUN/creatinine ratioOrdered By: Jagjit Rod on 08-11-2024 Urea nitrogen/Creatinine [Mass ratio] 16.0 mg/mg 10- [facility] Basic Metabolic Profile (BMP )on 08-11-2024 BUN/CRE 16.0 RATIO Normal - [facility] Comment on above: Performed By: #### L 100.0100, L500.2500 #### [facility] [address] [place], [place], [id number] Calcium [Mass/Vol] 9.6 mg/dL Normal 7.6-11.0 [facility] Comment on above: Performed By: #### L 100.0100, L500.2500 #### [facility] [address] [place], [address] Chloride [Moles/Vol] 103 mmol/L Normal 98-108 [facility] Comment on above: Performed By: #### L 100.0100, L500.2500 #### [facility] [address] [place], [address] CO2 [Moles/Vol] 22.9 mmol/L Normal 21.0-32.0 [facility] Comment on above: Performed By: #### L 100.0100, L500.2500 #### [facility] [address] [place], [address] Creatinine [Mass/Vol] 0.90 mg/dL Normal 0.70-1.20 [facility] Comment on above: Performed By: #### L 100.0100, L500.2500 #### [facility] [address] [place], [address] GAP 12 Normal 5-15 [facility] Comment on above: Performed By: #### L 100.0100, L500.2500 #### [facility] [address] [place], [address] GFR/1.73 sq M.predicted among non-blacks MDRD (S/P/Bld) [Vol rate/Area] 91 mL/min/{1.73_m2} Normal >60 [facility] Comment on above: Result Comment: mL/m in/1.73m2 CKD-EPI Creatinine Equation (2020) Performed By: #### L 100.0100, L500.2500 #### [facility] [address] [place], [address] Glucose [Mass/Vol] 87 mg/dL Normal 70-99 [facility] Comment on above: Performed By: #### L 100.0100, L500.2500 #### [facility] [address] [place], [address] Potassium [Moles/Vol] 4.0 mmol/L Normal 3.3-5.1 [facility] Comment on above: Performed By: #### L 100.0100, L500.2500 #### [facility] [address] [place], [address] Sodium [Moles/Vol] 138 mmol/L Normal 133-145 [facility] Comment on above: Performed By: #### L 100.0100, L500.2500 #### [facility] [address] [place], [address] Urea nitrogen [Mass/Vol] 14 mg/dL Normal 4-19 [facility] Comment on above: Performed By: #### L 100.0100, L500.2500 #### [facility] [address] [place], [address] Basophil percentageOrdered B y: Jagjit Rod on 08-11-2024 Basophils/100 WBC (Bld) 0.7 % 0-1 [facility] CBC W/Diff, Automatedon 07-15 Absolute Lymph 1.69 X10 3/uL Normal 0.83-4.51 [facility] Comment on above: Performed By: #### L 100.0100, L500.2500 #### [facility] [address] [place], [address] Absolute Neut 3.6 X10 3/uL Normal 2.0-7.7 [facility] Comment on above: Performed By: #### L 100.0100, L500.2500 #### [facility] [address] [place], [address] Basophils/100 WBC (Bld) 0.7 % Normal 0-1 [facility] Comment on above: Performed By: #### L 100.0100, L500.2500 #### [facility] [address] [place], [address] Eosinophils/100 WBC (Bld) 2.7 % Normal 0-5 [facility] Comment on above: Performed By: #### L 100.0100, L500.2500 #### [facility] [address] [place], [address] Erythrocyte distribution width (RBC) [Ratio] 12.0 % Normal 11.6-14.6 [facility] Comment on above: Performed By: #### L 100.0100, L500.2500 #### [facility] [address] [place], [address] Hematocrit (Bld) [Volume fraction] 40.7 % Normal 40-54 [facility] Comment on above: Performed By: #### L 100.0100, L500.2500 #### [facility] [address] [place], [address] Hemoglobin (Bld) [Mass/Vol] 14.3 g/dL Normal 13.0-16.5 [facility] Comment on above: Performed By: #### L 100.0100, L500.2500 #### [facility] [address] [place], [address] IG% 0.200 Normal 0.0-0.9 [facility] Comment on above: Result Comment: IG% - Immature Granulocytes (promyelocytes, myelocytes and metamyelocytes) > 1% indicates that a LEFT SHIFT is Present. Performed By: #### L 100.0100, L500.2500 #### [facility] [address] [place], [address] Lymphocytes/100 WBC (Bld) 28.4 % Normal 19-41 [facility] Comment on above: Performed By: #### L 100.0100, L500.2500 #### [facility] [address] [place], [address] MCH (RBC) [Entitic mass] 31.8 pg Normal 27.0-32.0 [facility] Comment on above: Performed By: #### L 100.0100, L500.2500 #### [facility] [address] [place], [address] MCHC (RBC) [Mass/Vol] 35.1 g/dL Normal 32-36 [facility] Comment on above: Performed By: #### L 100.0100, L500.2500 #### [facility] [address] [place], [address] MCV (RBC) [Entitic vol] 90.4 fL Normal 80-94 [facility] Comment on above: Performed By: #### L 100.0100, L500.2500 #### [facility] [address] [place], [address] Monocytes/100 WBC (Bld) 7.9 % Normal 0-10 [facility] Comment on above: Performed By: #### L 100.0100, L500.2500 #### [facility] [address] [place], [address] Neutrophils/100 WBC (Bld) 60.1 % Normal 47-70 [facility] Comment on above: Performed By: #### L 100.0100, L500.2500 #### [facility] [address] [place], [address] Nucleated RBC (Bld) [#/Vol] 0 10*3/uL Normal 0-5 [facility] Comment on above: Performed By: #### L 100.0100, L500.2500 #### [facility] [address] [place], [address] Platelet mean volume (Bld) [Entitic vol] 9.5 fL Normal 6.2-12.0 [facility] Comment on above: Performed By: #### L 100.0100, L500.2500 #### [facility] [address] [place], [address] Platelets (Bld) [#/Vol] 207 10*3/uL Normal 150-450 [facility] Comment on above: Performed By: #### L 100.0100, L500.2500 #### [facility] [address] [place], [address] RBC (Bld) [#/Vol] 4.50 10*6/uL Low 4.6-6.2 [facility] Comment on above: Performed By: #### L 100.0100, L500.2500 #### [facility] [address] [place], [address] RDW SD 39.6 fl Normal 35.1-43.9 [facility] Comment on above: Performed By: #### L 100.0100, L500.2500 #### [facility] [address] [place], [address] WBC (Bld) [#/Vol] 6.0 10*3/uL Normal 4.4-11.0 [facility] Comment on above: Performed By: #### L 100.0100, L500.2500 #### [facility] [address] [place], [address] Carbon dioxide, total [Moles /volume] in Central venous bloodOrdered By: Jagjit Rod on 08-11-2024 CO2 [Moles/Vol] 22.9 mmol/L 21.0-32.0 [facility] Cardiology Visit Reporton Cardiology Visit Report [facility] [address] [place] [address] OFFICE VISIT Date of Service: 08/11/24 MR#: [id number] Acct: [id number] Name: CELIA OSMAN Rep #: [id number] : 1950 Provider: Dr. 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 He tells me that he was chatting with his PROPERTY WORKER who told him about this test called a calcium score and convinced him to go take 1. He denies any chest pain or shortness with or paroxysmal nocturnal dyspnea or pedal edema no neck arm or jaw discomfort suggest angina. He underwent to the coronary calcium score and it demonstrated an elevated score with a total Agatston score of 2600 with a score of 1679 in the right coronary artery, 355 in the circumflex artery and 506 in the left anterior descending artery. He has had no cardiac symptoms his last lipid profile in January 2024 demonstrated total cholesterol 142 HDL of 36 and LDL of 74. His physical exam is unremarkable his electrocardiogram demonstrates sinus rhythm with a rate of 79 bpm. Intake Vital Signs 02/09/24 07:56 08/11/24 15:46 Height 5 ft 11 in 5 ft 11 in Weight: 209 lb BMI 29.1 BP 137/68 H Blood Pressure Location Lt brachial Position Sitting Respiration 16 Pulse 76 Pulse Source Monitor Intake Visit Reasons: ABN CCTA (DENISE) [employer]forming [employer] Required: No Accompanied by: Significant Other Is patient in pain?: No Allergies Sulfa (Sulfonamide Antibiotics) Allergy (Verified 08/11/24 15:50) Hives Medications ???Medication ???Instructions ???Recorded ???Confirmed ???Type multivitamin 1 tab PO DAILY 01/27/20 08/11/24 H istory osteobiflex PO 1XD 02/04/22 08/11/24 History atorvastatin 10 mg tablet (Lipitor) 10 mg PO QHS cholesterol #90 ta bs 12/11/23 08/11/24 Rx lisinopril 10 mg tablet 10 mg PO DAILY #90 tabs 12/11/23 0 08/11/24 Rx aspirin 81 mg tablet,delayed 81 mg PO DAILY #90 tabs 08/11/24 0 08/11/24 Rx release (Adult Aspirin Regimen) cholecalciferol (vitamin D3) 25 25 mcg PO QDAY 08/11/24 08/11/24 H istory mcg (1,000 unit) capsule omega-3 fatty acids 1,000 mg 500 mg PO QDAY 08/11/24 08/11/24 H istory capsule (Fish Oil Concentrate) Have you fallen in the past year?: No PFSH Medical History Essential hypertension Fatigue Abnormal CT scan of heart Impacted cerumen of both ears Vertigo Arthritis BiPAP (biphasic positive airway pressure) dependence WILLIE (obstructive sleep apnea) Hearing loss Osteoarthritis Seasonal allergies Other and unspecified hyperlipidemia Surgical History History of right hip replacement History of left hip replacement History of testicular surgery History of cataract extraction left wrist left knee Family History Mother Breast cancer CVA (cerebral vascular accident) Grandfather CVA (cerebral vascular accident) Arthritis Grandmother CVA (cerebral vascular accident) Mental disorder Social History Smoking Status: Never smoker alcohol intake: never substance use type: does not use what type of physical activity do you participate in: walking, bicycling and swimming ROS Const Const: Positive for difficulty sleeping (hx of sleep apnea); Negative for fatigue, weakness, headache(s) or daytime sleepiness ENT ENT: Negative for headache(s), dizziness or Nosebleed/epistaxis Cardio Chest Pain: No Palpitations: No Edema: None Resp Respiratory: Negative for SOB with activity, SOB at rest, SOB orthopnea SOB lying down or Cough GI GI: Negative nausea, vomiting or heartburn Neuro Neuro: Negative for dizziness, lightheadedness, near syncope, headache(s) or weakness Endo Endo: Negative for fatigue Cardiology Exam Const Appearance: cooperative, healthy appearing, no acute distress, well developed and well groomed Nutritional Appearance: average body habitus and well nourished Orientation: alert, awake and oriented x3 Head Head: normal to inspection, normocephalic and atraumatic Ears: hearing grossly normal bilaterally and external ears normal Nose: external nose normal, nares normal, nasal mucous membranes and turbinates normal, septum normal and no nasal discharge Face and Sinus: face symmetric Mouth: oral mucosae normal, tongue normal, oropharynx normal and moist mucous membranes Teeth and gingiva: dentition normal Throat: posterior oropharynx normal, tonsils normal and uvula midline Eyes General: appearance normal, bot (more content not included)... Normal [facility] Chloride assayOrdered By: Evan Rod on 08-11-2024 Chloride [Moles/Vol] 103 mmol/L 98-108 [facility] Eosinophil percentageOrdered By: Jagjitnohemi Rod on 08-11-2024 Eosinophils/100 WBC (Bld) 2.7 % 0-5 [facility] Erythrocyte distribution wid th ratioOrdered By: Kingmannohemi Rod on 08-11-2024 Erythrocyte distribution width (RBC) [Ratio] 12.0 % 11.6-14.6 [facility] Erythrocyte distribution wid th standard deviationOrdered By: Kingman Viola on 08-11-2024 Erythrocyte distribution width (RBC) [Ratio] 39.6 fl 35.1-43.9 [facility] Glomerular filtration rate ( GFR) estimation/1.73 sq m using serum, plasma, or whole bOrdered By: Jagjit Rod on 08-11-2024 GFR/1.73 sq M.predicted among non-blacks MDRD (S/P/Bld) [Vol rate/Area] 91 mL/min/{1.73_m2} >60 [facility] Comment on above: mL/min/1.73m2 CKD-EP I Creatinine Equation (2020) Hematocrit Auto (Bld) [Volum e fraction]Ordered By: Jagjit Rod on 08-11-2024 Hematocrit (Bld) [Volume fraction] 40.7 % 40-54 [facility] Hemoglobin measurementOrdere d By: Jagjit Rod on 08-11-2024 Hemoglobin (Bld) [Mass/Vol] 14.3 g/dL 13.0-16.5 [facility] Immature granulocytes/100 WB C Auto (Bld)Ordered By: Jagjit Rod on 08-11-2024 Immature granulocytes/100 WBC (Bld) 0.200 % 0.0-0.9 [facility] Comment on above: IG% - Immature Granu locytes (promyelocytes, myelocytes and metamyelocytes) > 1% indicates that a LEFT SHIFT is Present. MCV (mean corpuscular volume ) determinationOrdered By: Jagjit Rod on 08-11-2024 MCV (RBC) [Entitic vol] 90.4 fL 80-94 [facility] Mean corpuscular hemoglobin (MCH) determinationOrdered By: Kingman Viola on 08-11-2024 MCH (RBC) [Entitic mass] 31.8 pg 27.0-32.0 [facility] Mean corpuscular hemoglobin concentration (MCHC) determinationOrdered By: Jagjit Viola on 08-11-2024 MCHC (RBC) [Mass/Vol] 35.1 g/dL 32-36 [facility] Mean platelet volume determi nationOrdered By: Jagjit Viola on 08-11-2024 Platelet mean volume (Bld) [Entitic vol] 9.5 fL 6.2-12.0 [facility] Monocyte percentageOrdered B y: Jagjit Viola on 08-11-2024 Monocytes/100 WBC (Bld) 7.9 % 0-10 [facility] Neutrophil percentageOrdered By: Jagjit Viola on 08-11-2024 Neutrophils/100 WBC (Bld) 60.1 % 47-70 [facility] Nucleated red blood cell per centageOrdered By: Jagjit Viola on 08-11-2024 Nucleated RBC/100 WBC (Bld) [Ratio] 0 % 0-5 [facility] Platelet countOrdered By: Cy ril Viola on 08-11-2024 Platelets (Bld) [#/Vol] 207 10*3/uL 150-450 [facility] [facility] Potassium measurement (mass/ volume)Ordered By: Kingman Viola on 08-11-2024 Potassium (Unsp spec) [Mass/Vol] 4.0 mmol/L 3.3-5.1 [facility] RBC Auto (Bld) [#/Vol]Ordere d By: Kingman Viola on 08-11-2024 RBC (Bld) [#/Vol] 4.50 10*6/uL Low 4.6-6.2 [facility] Serum creatinine measurement (mass/volume)Ordered By: Jagjit Viola on 08-11-2024 Creatinine [Mass/Vol] 0.90 mg/dL 0.70-1.20 [facility] Serum glucose measurement (m ass/volume)Ordered By: Kingman Viola on 08-11-2024 Glucose [Mass/Vol] 87 mg/dL 70-99 [facility] Serum or plasma calcium rodrigo urement (mass/volume)Ordered By: Jagjit Rod on 08-11-2024 Calcium [Mass/Vol] 9.6 mg/dL 7.6-11.0 [facility] Serum or plasma urea nitroge n measurement (mass/volume)Ordered By: Jagjit Rod on 08-11-2024 Urea nitrogen [Mass/Vol] 14 mg/dL 4-19 [facility] Sodium levelOrdered By: Eh Rod on 08-11-2024 Sodium [Moles/Vol] 138 mmol/L 133-145 [facility] White blood cell (WBC) count Ordered By: Jagjit Rod on 08-11-2024 WBC (Bld) [#/Vol] 6.0 10*3/uL 4.4-11.0 [facility] Coronary Angiography CTon Coronary Angiography CT [facility] Imaging Services [address] [place] [address] 07/20/24 1632 MR#: [id number] Acct: [id number] Name: CELIA OSMAN Rep #: [id number] : 1950 74 From: Jagjit Rod MD PCP: Dr. Jia Yanes MD Status:REG REF Y Location: CT Calcium Scoring Date of Study:: 07/20/24 Indications Indications: Family history Coronary Calcium Scoring: High-resolution Computed Tomographic imaging of the chest was performed on [07/20/2024], with particular attention paid to the coronary arteries. Images from the examination were analyzed for the presence and extent of coronary artery calcification , using coronary calcium quantification software. The patient tolerated the procedure well and there were no complications. The results of the coronary calcification analysis are provided below. Findings Coronary Artery Left Main (LM): 60 Left Anterior Descending (LAD): 506 Left Circumflex (LCX): 355 Right Coronary Artery (RCA): 1,679 Total Agatston Score: 2,600 Percentile Ranking: Greater than 90th percentile Calcium Scoring Interpretation: Different methods to categorize the overall amount of coronary plaque. Overall amount CAC SIS Visual of coronary plaque P1 Mild -100 <2 1-2 vessels with mild amount of plaque P2 Moderate 101-300 3-4 1-2 vessels with moderate amount, 3 vessels with mild amount of plaque P3 Severe 301-999 5-7 3 vessels with moderate amount, 1 vessel with severe amount of plaque P4 Extensive >1000 >8 2-3 vessels with severe amount of plaque Calcium Score: Extensive: 2-3 vessels w/severe amount of plaque Conclusion: Extensive coronary artery plaquing involving all 3 blood vessels. 07/20/24 1633 Date Jagjit Rod MD Cosigner Signature (if applicable): Date CC: Dr. Jagjit Rod MD; Dr. Jia Yanes MD Signed Normal [facility] Limited Chest CT Cardiac Onl yon 07-20-[address] Cardiac Only [facility] Imaging Services [address] [place] [id number] Cardiac Only MR#: [id number] Acct: [id number] Name: CELIA OSMAN Rep #: [id number] : 1950 M 74 From: Edd hawthorne MD PCP: Dr. Jia Yanes MD Status: REG REF Study: Limited Chest CT Cardiac Only Date of Exam: Exam# [id number] Ordering Dr: Jia Yanes MD PROCEDURE: LIMITED CHEST CT CARDIAC ONLY REASON FOR EXAM: HYPERTENSION, HYPERLIPIDEMIA TECHNIQUE: Prone and supine chest CT without contrast. One or more dose reduction techniques were used (e.g., Automated exposure control, adjustment of the mA and/or kV according to patient size, use of iterative reconstruction technique). COMPARISON: None FINDINGS: Hardware: None Lymph nodes: None Heart and Vasculature: Normal heart size. No pericardial effusion. Atherosclerotic calcifications of the thoracic aorta. Thoracic aorta and pulmonary arteries have normal contours; noncontrast technique limits evaluation. Coronary Artery Calcifications: Present Lungs and Airways: Unremarkable. Pleura: Unremarkable Upper Abdomen: Multiple hypodensity seen in the liver suggestive of multiple small cysts. Bones: Degenerative changes of the thoracic spine. CT/Limited Chest CT Cardiac Only IMPRESSION: Coronary artery calcification (CAC) is is present Reading Location: [place] [address] CC: Dr. Jia Yanes MD Healthcare Insurance Sales Agent: Signed Normal [facility] Chest PA and Lateralon 04-12 Chest PA and Lateral [facility] Imaging Services [address] [employer], [place] [address] Chest PA and Lateral MR#: [id number] Acct: [id number] Name: CELIA OSMAN Rep #: [id number] : 1950 M 74 From: Tim Li MD PCP: Dr. Jia Yanes MD Status: [facility] Study: Chest PA and Lateral Date of Exam: 04/12/24 Exam# [id number] Ordering Dr: Kee Barraza NP [employer] [id number] STUDY: X-RAY CHEST REASON FOR EXAM: Male, 74 years old. Cough TECHNIQUE: PA and lateral views of the chest. COMPARISON: 08/07/2020 FINDINGS: The lungs are clear and expanded. There is no demonstrated pleural abnormality. Normal size heart. Normal mediastinum and [place]. Normal visualized pulmonary arteries. Normal visualized aortic arch and descending thoracic aorta. Normal visualized thoracic spine. Normal visualized ribs, clavicles, and shoulders. There is no demonstrated abnormality of the visualized soft tissue structures of the upper abdomen. RAD/Chest PA and Lateral IMPRESSION: Normal x-ray examination of the chest. Electronically Signed: Tim Li MD at 11:53 EST , CC: ADDI Barraza; Dr. Jia Yanes MD Healthcare Insurance Sales Agent: Signed Normal [facility] Office Visit Reporton [address] [facility] [place] [address] OFFICE VISIT Date of Service: 04/11/24 MR#: [id number] Acct: [id number] Patient: CELIA OSMAN Rep #: [id number] : 1950 Provider: ADDI sandoval Age/Sex: 74/M Location: [facility] Status: Signed Intake Vital Signs 02/09/24 07:56 04/11/24 08:10 Height 5 ft 11 in BP 130/68 H Blood Pressure Location Lt brachial Position Sitting Respiration 16 Pulse 69 Pulse Source NIBP Temp 98.3 F Temp Source Oral Pulse Oximetry (%) 96 Oxygen Delivery Method room air Intake Visit Reasons: COUGH, MILD SORE THROAT Chief Complaint: cough Performing Arts Technicians Required: No Is patient in pain?: No Allergies Sulfa (Sulfonamide Antibiotics) Allergy (Verified 04/11/24 08:15) Hives Medications ???Medication ???Instructions ???Recorded ???Confirmed ???Type multivitamin 1 tab PO DAILY 01/27/20 02/09/24 History omega-3 fatty acids 1,000 mg 1,000 mg PO BID 10/12/20 02/09/24 History capsule (Fish Oil Concentrate) osteobiflex PO 1XD 02/04/22 02/09/24 History atorvastatin 10 mg tablet (Lipitor) 10 mg PO QHS cholesterol #90 tabs 12/11/23 02/09/24 Rx lisinopril 10 mg tablet 10 mg PO DAILY #90 tabs 12/11/23 02/09/24 Rx prednisone 20 mg tablet 40 mg (2 x 20 mg) PO QDAY 5 days 04/11/24 04/11/24 Rx #10 tabs Have you fallen in the past year?: No Nurse's Note: seen here last month for cough etc, given Zpak and Benzonatate. pt completed and was feeling well, went on a bike ride and "got a chill", cough returned x 4 days without resolve. denies SUERO, BA, ST, fever, congestion. [facility] Medical History (Updated 04/11/24 @ 08:31 by Kee Barraza [employer], [employer]) Impacted cerumen of both ears Vertigo COVID-19 Wears hearing aid Wears glasses Arthritis BiPAP (biphasic positive airway pressure) dependence Non-smoker History of stress test WILLIE (obstructive sleep apnea) Hearing loss Osteoarthritis Seasonal allergies Other and unspecified hyperlipidemia Surgical History History of right hip replacement History of left hip replacement History of testicular surgery History of cataract extraction left wrist left knee Family History Mother Breast cancer CVA (cerebral vascular accident) Grandfather CVA (cerebral vascular accident) Arthritis Grandmother CVA (cerebral vascular accident) Mental disorder Social History Smoking Status: Never smoker alcohol intake: never substance use type: does not use what type of physical activity do you participate in: walking, bicycling and swimming HPI HPI Chief Complaint: cough Details: CELIA OSMAN, is a 74 M who presents to the office today for concerns regarding ongoing cough. He was seen here in clinic on 03/18/2024 for concerns regarding fatigue, cough, and loss of voice intermittently for 2 weeks. He received azithromycin and Tessalon Perles. He states after initial treatment he felt improved, but 4 days ago he noted return cough. He denies fever or chills. He denies any sore throat. He is concerned that he may have pneumonia. ROS Const Constitutional: No body ache, chills, fatigue, fever(s), headache(s) or change in appetite Eyes Eyes: No blurry vision, change in vision, double vision, irritation, discharge, vision loss, dry eyes, bulging eyes, floaters, visual disturbances, eye pain, Light sensitivity, spots in vision, tunnel vision or other ENT ENT: No ear or mastoid pain, ear discharge, ear pressure, tinnitus, dizziness/vertigo, nosebleed/epistaxis, nasal congestion, nose pain, sinus pressure, sinus pain, nasal discharge, post nasal drip, headache(s), facial pain, dental pain, difficulty swallowing, bad breath, hoarseness, lip swelling, mouth lesions, mouth pain, neck pain, sore throat, tongue swelling or throat swelling Resp Respiratory: Positive for cough; No change in phlegm color, chest congestion, hemoptysis, pain on inspiration, shortness of breath, pain with cough, stridor or wheezing Cardio Cardiology: No chest pain at rest, chest pain with exertion, shortness of breath, dyspnea on exertion or lightheadedness Gastro GI: No abdominal pain, change in bowel habits or difficulty swallowing Genitourinary Male: No burning urination or urinary frequency Musc Musculoskeletal: No joint pain or neck pain Skin Skin: No rash Neuro Neurology: No headache(s) or visual disturbances Psych Psychiatric: No change in appetite Endo Endocrine: No fatigue Aller/Imm Allergy/Immunologic: No lip swelling, throat swelling, tongue swelling or wheezing Exam Const General: cooperative, healthy appearing, comfortable and no acute distress Orientation: alert, awake an (more content not included)... Normal [facility] Urgent Care Visit Reporton 1 05-19-2023 Urgent Care Visit Report [facility] [address], [address] [place] [id number] OFFICE VISIT Date of Service: 03/18/24 MR#: [id number] Acct: [id number] Name: CELIA OSAMN ON LICENSE OF [facility] Rep #: [id number] : 1950 Provider: MONICA Thrasher Age/Sex: 74/M Location: [facility] Status: Signed Intake Vital Signs 02/09/24 07:56 03/18/24 08:36 Height 5 ft 11 in Weight: 213 lb 8 oz BMI 29.7 BP 139/70 H 130/66 H Blood Pressure Location Lt brachial Lt brachial Position Sitting Sitting Respiration 16 16 Pulse 63 68 Pulse Source Monitor NIBP Temp 98.2 F 97.6 F L Temp Source Temporal Oral Pulse Oximetry (%) 95 96 Oxygen Delivery Method room air room air Intake Visit Reasons: Cough Chief Complaint: Fatigue, laryngitis, cough Performing [employer] Techn[employer] Required: No Is patient in pain?: No Allergies Sulfa (Sulfonamide Antibiotics) Allergy (Verified 03/18/24 08:37) Hives Have you fallen in the past year?: No Nurse's Note: Fatigue, laryngitis, cough for nearly 2 weeks. seen here 03-09, negative for flu/covid and recommended rest/fluids etc. pt continues to have non-productive cough feeling like irritation in throat. denies fever, congestion, mucus PFSH Medical History (Updated 02/09/24 @ 10:[address] Jia Yanes MD) Impacted cerumen of both ears Vertigo COVID-19 Wears hearing aid Wears glasses Arthritis BiPAP (biphasic positive airway pressure) dependence Non-smoker History of stress test WILLIE (obstructive sleep apnea) Hearing loss Osteoarthritis Seasonal allergies Other and unspecified hyperlipidemia Surgical History History of right hip replacement History of left hip replacement History of testicular surgery History of cataract extraction left wrist left knee Family History Mother Breast cancer CVA (cerebral vascular accident) Grandfather CVA (cerebral vascular accident) Arthritis Grandmother CVA (cerebral vascular accident) Mental disorder Social History Smoking Status: Never smoker alcohol intake: never substance use type: does not use what type of physical activity do you participate in: walking, bicycling and swimming HPI HPI Chief Complaint: Fatigue, laryngitis, cough Details: CELIA OSMAN, is a 74 M who presents to the office today for complaint of fatigue, cough and loss of voice intermittently for the past 2 weeks. Patient denies hemoptysis, shortness of breath or difficulty breathing. No fever, chills, sweats. He states his biggest concern is his cough which is worse in the morning. No other associated symptoms or alleviating/aggravating factors. ROS Const Constitutional: No other (As above) Exam Const General: cooperative and well developed HENLA Head: normal to inspection and atraumatic Ears: hearing grossly normal bilaterally Nose: nasal discharge clear Face and sinus: normal facial exam Mouth: oral mucosae normal Throat: abnormal tonsil bilaterally hypertrophy 1+ Resp Effort Inspection: normal respiratory effort and no audible wheezes Auscultation: Bilateral: Clear to Auscultation Cardio Rate: regular rate Rhythm: regular rhythm Neuro General: patient alert Psych Appearance: grossly normal Mental Status: mental status grossly normal Coding Level of Care Code Off vis,est,level 3 Diagnoses Acute bronchitis J20.9 Assessment and Plan Assessment and Plan (1) Acute bronchitis: Status: Acute Plan: Azithromycin and Tessalon Perles as prescribed today. Encouraged to get plenty of rest, drink lots of clear liquids, and use Tylenol or Ibuprofen (unless contraindicated) for fever and comfort. Patient also educated on other symptomatic management techniques. To be seen in 7-10 days if no improvement; sooner if worsening of symptoms. Patient advised of potential red flags and when appropriate to report to the ED. Patient verbalized understanding and agreement with all the above. Medications: New azithromycin take 500 mg today (day 1), then 250 mg for 4 days (days 2-5) PO 6 tabs 0RF benzonatate 200 mg (2 x 100 mg) PO TID PRN 30 caps 0RF cough Clinical Quality Measures Falls Risk Screening/Assistive Devices Have you fallen in the past year?: No 03/18/24 0858 Date Best Kelley Signature: Date (if applicable) CC: Normal [facility] Urgent Care Visit Reporton 1 05-09-2023 Urgent Care Visit Report [facility] [address], [address] [place], [place] [id number] OFFICE VISIT Date of Service: 03/09/24 MR#: [id number] Acct: [id number] Name: CELIA OSMAN Rep #: [id number] : 1950 Provider: MONICA Vasquez Age/Sex: 74/M Location: [facility] Status: Signed Intake Vital Signs 02/09/24 07:56 03/09/24 12:07 Height 5 ft 11 in Weight: 213 lb 8 oz BMI 29.7 BP 139/70 H 122/66 H Blood Pressure Location Lt brachial Lt brachial Position Sitting Sitting Respiration 16 12 Pulse 63 74 Pulse Source Monitor NIBP Temp 98.2 F 97.6 F L Temp Source Temporal Oral Pulse Oximetry (%) 95 97 Oxygen Delivery Method room air room air Intake Visit Reasons: FATIGUED/LARENGYTIS Chief Complaint: Fatigue, larengytis [employer] Required: No Is patient in pain?: No Allergies Sulfa (Sulfonamide Antibiotics) Allergy (Verified 02/09/24 07:50) Hives Have you fallen in the past year?: No Nurse's Note: patient states has a cold, has fatigue, lost voice, x1 week, ran rapid covid/flu test on patient. [facility] Medical History (Updated 02/09/24 @ 10:[address] Jia Yanes MD) Impacted cerumen of both ears Vertigo COVID-19 Wears hearing aid Wears glasses Arthritis BiPAP (biphasic positive airway pressure) dependence Non-smoker History of stress test WILLIE (obstructive sleep apnea) Hearing loss Osteoarthritis Seasonal allergies Other and unspecified hyperlipidemia Surgical History History of right hip replacement History of left hip replacement History of testicular surgery History of cataract extraction left wrist left knee Family History Mother Breast cancer CVA (cerebral vascular accident) Grandfather CVA (cerebral vascular accident) Arthritis Grandmother CVA (cerebral vascular accident) Mental disorder Social History Smoking Status: Never smoker alcohol intake: never substance use type: does not use what type of physical activity do you participate in: walking, bicycling and swimming HPI HPI Chief Complaint: Fatigue, larengytis Details: CELIA OSMAN, is a 74 M who presents to the office today for initial evaluation approximately 3- day history of persistent loss of voice/laryngitis and mild fatigue. Admits no complaints of fever, chills, sweats, lightheadedness/dizzine ss, nausea/vomiting, sore throat or loss of smell or chest pain/shortness of breath or dyspnea on exertion, or nausea/vomiting/diarrhe a. Nonetheless, patient is requesting screening for COVID-19 and influenza at this time. Non-smoker. No close contacts with similar complaints. No other associated symptoms and no other alleviating/aggravating factors. ROS Const Constitutional: No other (As above) Exam Const General: cooperative, healthy appearing and no acute distress Orientation: alert, awake and oriented x3 HENMT Head: normal to inspection Ears: hearing grossly normal bilaterally, external ears normal, TM's normal bilaterally and EAC's normal Nose: external nose normal, nares normal, septum normal and trace to absent clear nasal discharge Face and sinus: normal facial exam, sinuses nontender and face symmetric Mouth: oral mucosae normal, lip normal, tongue normal and oropharynx normal Throat: posterior oropharynx normal, tonsils normal, uvula midline and no postnasal drainage Eyes General: appearance normal, both eyes and all related structures Neck Neck: normal visual inspection, full ROM, no lymphadenopathy, no meningeal signs and supple Neck mass: No Thyroid: thyroid normal Lymphatic: no lymphadenopathy noted Chest Chest palpation inspection: normal inspection of the chest Resp Effort Inspection: normal respiratory effort, able to speak in complete sentences and no unsolicited cough during today's exam Auscultation: Bilateral: Clear to Auscultation Cardio Palpation: normal PMI Rate: Regular Rhythm: regular rhythm Heart Sounds: S1 normal, S2 normal, no gallops, no murmurs and no rubs Pulses: radial pulses present Skin General: no rashes or lesions noted Neuro General: patient alert, patient awake and patient oriented x3 Cognition: normal cognition Speech: speech normal Psych Appearance: grossly normal Mental Status: mental status grossly normal Mood: congruent mood Affect: normal affect Speech and Movement: speech and movement normal Attitude: cooperative Diagnoses Contact with or exposure to other viral diseases Z20.828 Fatigue R53.83 Assessment and Plan Assessment and Plan (1) Contact with or exposure to other viral diseases: Status: Acute (2) fatigue: Status: Acute Plan: See POC results. (more content not included)... Normal [facility] CBC W/Diff, Automatedon 10-3 Absolute Lymph 1.72 X10 3/uL Normal 0.83-4.51 [facility] Comment on above: Performed By: #### L 100.0100, L500.4100, L506.1000, L501.9520, L500.4050, L501.9910 #### [facility] [address] [place], [address] Absolute Neut 2.8 X10 3/uL Normal 2.0-7.7 [facility] Comment on above: Performed By: #### L 100.0100, L500.4100, L506.1000, L501.9520, L500.4050, L501.9910 #### [facility] [address] [place], [address] Basophils/100 WBC (Bld) 0.8 % Normal 0-1 [facility] Comment on above: Performed By: #### L 100.0100, L500.4100, L506.1000, L501.9520, L500.4050, L501.9910 #### [facility] [address] [place], [address] Eosinophils/100 WBC (Bld) 2.5 % Normal 0-5 [facility] Comment on above: Performed By: #### L 100.0100, L500.4100, L506.1000, L501.9520, L500.4050, L501.9910 #### [facility] [address] [place], [address] Erythrocyte distribution width (RBC) [Ratio] 12.1 % Normal 11.6-14.6 [facility] Comment on above: Performed By: #### L 100.0100, L500.4100, L506.1000, L501.9520, L500.4050, L501.9910 #### [facility] [address] [place], [address] Hematocrit (Bld) [Volume fraction] 41.8 % Normal 40-54 [facility] Comment on above: Performed By: #### L 100.0100, L500.4100, L506.1000, L501.9520, L500.4050, L501.9910 #### [facility] [address], [address] Hemoglobin (Bld) [Mass/Vol] 14.1 g/dL Normal 13.0-16.5 [facility] Comment on above: Performed By: #### L 100.0100, L500.4100, L506.1000, L501.9520, L500.4050, L501.9910 #### [facility] [address] [place], [address] IG% 0.200 Normal 0.0-0.9 [facility] Comment on above: Result Comment: IG% - Immature Granulocytes (promyelocytes, myelocytes and metamyelocytes) > 1% indicates that a LEFT SHIFT is Present. Performed By: #### L 100.0100, L500.4100, L506.1000, L501.9520, L500.4050, L501.9910 #### [facility] [address] [place], [address] Lymphocytes/100 WBC (Bld) 33.0 % Normal 19-41 [facility] Comment on above: Performed By: #### L 100.0100, L500.4100, L506.1000, L501.9520, L500.4050, L501.9910 #### [facility] [address] [place], [address] MCH (RBC) [Entitic mass] 31.3 pg Normal 27.0-32.0 [facility] Comment on above: Performed By: #### L 100.0100, L500.4100, L506.1000, L501.9520, L500.4050, L501.9910 #### [facility] [address] [place], [address] MCHC (RBC) [Mass/Vol] 33.7 g/dL Normal 32-36 [facility] Comment on above: Performed By: #### L 100.0100, L500.4100, L506.1000, L501.9520, L500.4050, L501.9910 #### [facility] [address] [place], [address] MCV (RBC) [Entitic vol] 92.7 fL Normal 80-94 [facility] Comment on above: Performed By: #### L 100.0100, L500.4100, L506.1000, L501.9520, L500.4050, L501.9910 #### [facility] [address] [place], [address] Monocytes/100 WBC (Bld) 9.8 % Normal 0-10 [facility] Comment on above: Performed By: #### L 100.0100, L500.4100, L506.1000, L501.9520, L500.4050, L501.9910 #### [facility] [address] [place], [address] Neutrophils/100 WBC (Bld) 53.7 % Normal 47-70 [facility] Comment on above: Performed By: #### L 100.0100, L500.4100, L506.1000, L501.9520, L500.4050, L501.9910 #### [facility] [address] [place], [address] Nucleated RBC (Bld) [#/Vol] 0 10*3/uL Normal 0-5 [facility] Comment on above: Performed By: #### L 100.0100, L500.4100, L506.1000, L501.9520, L500.4050, L501.9910 #### [facility] [address] [place], [address] Platelet mean volume (Bld) [Entitic vol] 9.0 fL Normal 6.2-12.0 [facility] Comment on above: Performed By: #### L 100.0100, L500.4100, L506.1000, L501.9520, L500.4050, L501.9910 #### [facility] [address] [place], [address] Platelets (Bld) [#/Vol] 189 10*3/uL Normal 150-450 [facility] Comment on above: Performed By: #### L 100.0100, L500.4100, L506.1000, L501.9520, L500.4050, L501.9910 #### [facility] [address] [place], [address] RBC (Bld) [#/Vol] 4.51 10*6/uL Low 4.6-6.2 [facility] Comment on above: Performed By: #### L 100.0100, L500.4100, L506.1000, L501.9520, L500.4050, L501.9910 #### [facility] [address] [place], [address] RDW SD 41.4 fl Normal 35.1-43.9 [facility] Comment on above: Performed By: #### L 100.0100, L500.4100, L506.1000, L501.9520, L500.4050, L501.9910 #### [facility] [address] [place], [address] WBC (Bld) [#/Vol] 5.2 10*3/uL Normal 4.4-11.0 [facility] Comment on above: Performed By: #### L 100.0100, L500.4100, L506.1000, L501.9520, L500.4050, L501.9910 #### [facility] [address] [place], [address] Comprehensive Metabolic [facility] 02-12-2024 Albumin [Mass/Vol] 3.7 g/dL Normal 3.2-5.0 [facility] Comment on above: Performed By: #### L 100.0100, L500.4100, L506.1000, L501.9520, L500.4050, L501.9910 #### [facility] [address] [place], [address] Albumin/Globulin [Mass ratio] 1.0 {ratio} Normal 0.9-2.4 [facility] Comment on above: Performed By: #### L 100.0100, L500.4100, L506.1000, L501.9520, L500.4050, L501.9910 #### [facility] [address] [place], [address] ALK P 61 U/L Normal 45-117 [facility] Comment on above: Performed By: #### L 100.0100, L500.4100, L506.1000, L501.9520, L500.4050, L501.9910 #### [facility] [address] [place], [address] ALT [Catalytic activity/Vol] 36 U/L Normal 16-61 [facility] Comment on above: Performed By: #### L 100.0100, L500.4100, L506.1000, L501.9520, L500.4050, L501.9910 #### [facility] [address] [place], [address] AST [Catalytic activity/Vol] 27 U/L Normal 15-37 [facility] Comment on above: Performed By: #### L 100.0100, L500.4100, L506.1000, L501.9520, L500.4050, L501.9910 #### [facility] [address] [place], [address] Bilirubin [Mass/Vol] 0.70 mg/dL Normal 0.20-1.00 [facility] Comment on above: Result Comment: For patients on eltrombopag therapy, use of Dimension [place] TBIL is not recommended. Performed By: #### L 100.0100, L500.4100, L506.1000, L501.9520, L500.4050, L501.9910 #### [facility] [address] [place], [address] BUN/CRE 17.0 RATIO Normal 10-20 [facility] Comment on above: Performed By: #### L 100.0100, L500.4100, L506.1000, L501.9520, L500.4050, L501.9910 #### [facility] [address] [place], [address] CA,Total 9.0 mg/dL Normal 8.5-10.1 [facility] Comment on above: Performed By: #### L 100.0100, L500.4100, L506.1000, L501.9520, L500.4050, L501.9910 #### [facility] [address] [place], [address] Chloride [Moles/Vol] 105 mmol/L Normal 98-107 [facility] Comment on above: Performed By: #### L 100.0100, L500.4100, L506.1000, L501.9520, L500.4050, L501.9910 #### [facility] [address] [place], [address] CO2 [Moles/Vol] 28.0 mmol/L Normal 21.0-32.0 [facility] Comment on above: Performed By: #### L 100.0100, L500.4100, L506.1000, L501.9520, L500.4050, L501.9910 #### [facility] [address] [place], [address] Creatinine [Mass/Vol] 0.88 mg/dL Normal 0.70-1.30 [facility] Comment on above: Result Comment: The validity of the calculated GFR GFRAA in patients over 70 years has not been determined. Clinical correlation is essential. Performed By: #### L 100.0100, L500.4100, L506.1000, L501.9520, L500.4050, L501.9910 #### [facility] [address] [place], [address] EST GFR - AA 109 mL/min Normal >60 [facility] Comment on above: Result Comment: Afri can [place] GFR Calc Performed By: #### L 100.0100, L500.4100, L506.1000, L501.9520, L500.4050, L501.9910 #### [facility] [address] [place], [address] GAP 4 Low 5-15 [facility] Comment on above: Performed By: #### L 100.0100, L500.4100, L506.1000, L501.9520, L500.4050, L501.9910 #### [facility] [address] [place], [address] GFR/1.73 sq M.predicted among non-blacks MDRD (S/P/Bld) [Vol rate/Area] 91 mL/min/{1.73_m2} Normal >60 [facility] Comment on above: Result Comment: Non- GFR Calc Performed By: #### L 100.0100, L500.4100, L506.1000, L501.9520, L500.4050, L501.9910 #### [facility] [address] [place], [address] Globulin (S) [Mass/Vol] 3.6 g/dL Normal 2.2-4.2 [facility] Comment on above: Performed By: #### L 100.0100, L500.4100, L506.1000, L501.9520, L500.4050, L501.9910 #### [facility] [address] [place], [address] Glucose [Mass/Vol] 100 mg/dL Normal 74-106 [facility] Comment on above: Result Comment: Fast ing Glucose result from 100 to 125 mg/dL suggests IMPAIRED HOMEOSTASIS per A.D.A. criteria. Performed By: #### L 100.0100, L500.4100, L506.1000, L501.9520, L500.4050, L501.9910 #### [facility] [address] [place], [address] Potassium [Moles/Vol] 4.1 mmol/L Normal 3.5-5.1 [facility] Comment on above: Performed By: #### L 100.0100, L500.4100, L506.1000, L501.9520, L500.4050, L501.9910 #### [facility] [address] [place], [address] Sodium [Moles/Vol] 138 mmol/L Normal 136-145 [facility] Comment on above: Performed By: #### L 100.0100, L500.4100, L506.1000, L501.9520, L500.4050, L501.9910 #### [facility] [address] [place], [address] T PROT 7.3 g/dL Normal 6.4-8.2 [facility] Comment on above: Performed By: #### L 100.0100, L500.4100, L506.1000, L501.9520, L500.4050, L501.9910 #### [facility] [address] [place], [address] Urea nitrogen [Mass/Vol] 15 mg/dL Normal 7-18 [facility] Comment on above: Performed By: #### L 100.0100, L500.4100, L506.1000, L501.9520, L500.4050, L501.9910 #### [facility] [address] [place], [address] Lipid Profileon 02-12-2024 Cholesterol [Mass/Vol] 142 mg/dL Normal 200 [facility] Comment on above: Result Comment: <200 mg/dL Desirable 200-240 mg/dL Borderline >240 mg/dL High Risk Performed By: #### L 100.0100, L500.4100, L506.1000, L501.9520, L500.4050, L501.9910 ####[facility] [address] [place], [address] Cholesterol in HDL [Mass/Vol] 36 mg/dL Low [facility] Comment on above: Result Comment: The drugs N-Acetylcysteine and Metamizole may falsely depress this assay. Reference Range HDL <40 mg/dL Low HDL Cholesterol HDL >or= 60 mg/dL High HDL Cholesterol Performed By: #### L 100.0100, L500.4100, L506.1000, L501.9520, L500.4050, L501.9910 ####[facility] [address] [place], [address] Cholesterol in LDL [Mass/Vol] 74 mg/dL Normal 0-130 [facility] Comment on above: Performed By: #### L 100.0100, L500.4100, L506.1000, L501.9520, L500.4050, L501.9910 ####[facility] [address] [place], [address] Cholesterol in VLDL [Mass/Vol] 32 mg/dL Normal 5-40 [facility] Comment on above: Performed By: #### L 100.0100, L500.4100, L506.1000, L501.9520, L500.4050, L501.9910 ####[facility] [address] [place], [address] Triglyceride [Mass/Vol] 161 mg/dL Normal [facility] Comment on above: Result Comment: The drugs N-Acetylcysteine and Metamizole may falsely depress this assay. Serum Triglycerides Reference Interval Normal <150 mg/dL Borderline high 150 - 199 mg/dL High 200 - 499 mg/dL Very High > or = 500 mg/dL Performed By: #### L 100.0100, L500.4100, L506.1000, L501.9520, L500.4050, L501.9910 ####[facility] [address], [address] PSA,Total - Annual Screenon 02-12-2024 PSA,TOT SCREEN 1.82 ng/mL Normal 0.00-4.00 [facility] Comment on above: Result Comment: This test was performed using the TPSA assay method for the [employer] chemistry system. Values obtained with different assay methods cannot be used interchangably. When changing PSA assays in the course of monitoring a patient, additional sequential testing should be carried out to confirm baseline values. Performed By: #### L 100.0100, L500.4100, L506.1000, L501.9520, L500.4050, L501.9910 ####[facility] [address] [place], [place], [id number] Thyroid Stim Hormone (TSH)on 02-12-2024 TSH 2.430 uIU/mL Normal 0.358-3.740 [facility] Comment on above: Performed By: #### L 100.0100, L500.4100, L506.1000, L501.9520, L500.4050, L501.9910 ####[facility] [address] [place], [place], [id number] Vitamin D,25 Hydroxyon 02-11 Vitamin D 25-OH 24.6 ng/mL Normal [facility] Comment on above: Result Comment: Cassie min D 25(OH) Status Range Deficiency <20 ng/mL (50nmol/L) Insufficiency 20 - 30 ng/mL (50 - 75 nmol/L) Sufficiency 30 - 100 ng/mL (75 - 250 nmol/L) Toxicity >100 ng/mL (>250 nmol/L) Performed By: #### L 100.0100, L500.4100, L506.1000, L501.9520, L500.4050, L501.9910 #### [facility] [place], [address] Absolute lymphocyte countOrd ered By: Jia Barrientoschner on 02-06-2023 Lymphocytes Auto (Unsp spec) [#/Vol] 1.68 10*3/uL 0.83-4.51 [facility] Basophil percentageOrdered B y: Jia Yanes on 02-06-2023 Basophils/100 WBC (Bld) 0.6 % 0-1 [facility] Bilirubin [Mass/Vol] 0.40 mg/dL 0.20-1.00 [facility] Comment on above: For patients on eltr ombopag therapy, use of [employer] [place] TBIL is not recommended. Chloride [Moles/Vol] 105 mmol/L 98-107 [facility] Cholesterol [Mass/Vol] 121 mg/dL <200 [facility] Comment on above: <200 mg/dL Desirable 200-240 mg/dL Borderline >240 mg/dL High Risk Eosinophils/100 WBC (Bld) 4.0 % 0-5 [facility] Glucose [Mass/Vol] 102 mg/dL 74-106 [facility] Comment on above: Fasting Glucose resu lt from 100 to 125 mg/dL suggests IMPAIRED HOMEOSTASIS per A.D.A. criteria. Neutrophils (Bld) [#/Vol] 2.8 10*3/uL 2.0-7.7 [facility] Neutrophils/100 WBC (Bld) 53.2 % 47-70 [facility] Potassium [Moles/Vol] 4.1 mmol/L 3.5-5.1 [facility] Protein [Mass/Vol] 7.1 g/dL 6.4-8.2 [facility] Sodium [Moles/Vol] 139 mmol/L 136-145 [facility] Triglyceride [Mass/Vol] 116 mg/dL <199 [facility] Comment on above: The drugs N-Acetylcy steine and Metamizole may falsely depress this assay.Serum Triglycerides Reference Interval Normal <150 mg/dL Borderline high 150 - 199 mg/dL High 200 - 499 mg/dL Very High > or = 500 mg/dL WBC (Bld) [#/Vol] 5.2 10*3/uL 4.4-11.0 [facility] Blood erythrocytes count (nu mber/volume)Ordered By: Jia Yanes on 02-06-2023 RBC (Bld) [#/Vol] 4.27 10*6/uL 4.6-6.2 [facility] Blood hemoglobin measurement (mass/volume)Ordered By: Jia Yanes on 02-06-2023 Hemoglobin (Bld) [Mass/Vol] 13.9 g/dL 13.0-16.5 [facility] Blood lymphocytes/100 leukoc ytesOrdered By: Jia Yanes on 02-06-2023 Lymphocytes/100 WBC (Bld) 32.2 % 19-41 [facility] Blood monocytes/100 leukocyt esOrdered By: Jia Yanes on 02-06-2023 Monocytes/100 WBC (Bld) 9.8 % 0-10 [facility] Blood platelet mean volumeOr dered By: Jia Yanes on 02-06-2023 Platelet mean volume (Bld) [Entitic vol] 9.3 fL 6.2-12.0 [facility] Determination of erythrocyte mean corpuscular volume (MCV)Ordered By: Jia Yanes on 02-06-2023 MCV (RBC) [Entitic vol] 94.8 fL 80-94 [facility] Hematocrit Auto (Bld) [Volum e fraction]Ordered By: Jia Yanes on 02-06-2023 Hematocrit (Bld) [Volume fraction] 40.5 % 40-54 [facility] - Chemistry and C hemistry - challengeOrdered By: Jia Yanes on 02-06-2023 ALP [Catalytic activity/Vol] 62 U/L 45-117 [facility] ALT [Catalytic activity/Vol] 34 U/L 16-61 [facility] CO2 [Moles/Vol] 30.0 mmol/L 21.0-32.0 [facility] Globulin (S) [Mass/Vol] 3.6 g/dL 2.2-4.2 [facility] Urea nitrogen/Creatinine [Mass ratio] 18.3 mg/mg 10-20 [facility] - Hematology and Cell countsOrdered By: Jia Yanes on 02-06-2023 Erythrocyte distribution width (RBC) [Entitic vol] 41.9 fL 35.1-43.9 [facility] Erythrocyte distribution width (RBC) [Ratio] 12.1 % 11.6-14.6 [facility] Immature granulocytes/100 WBC (Bld) 0.200 % 0.0-0.9 [facility] Comment on above: IG% - Immature Granu locytes (promyelocytes, myelocytes and metamyelocytes) > 1% indicates that a LEFT SHIFT is Present. MCH (RBC) [Entitic mass] 32.6 pg 27.0-32.0 [facility] Nucleated RBC/100 WBC (Bld) [Ratio] 0 % 0-5 [facility] MCHC Auto (RBC) [Mass/Vol]Or dered By: Jia Yanes on 02-06-2023 MCHC (RBC) [Mass/Vol] 34.3 g/dL 32-36 [facility] No Panel InformationOrdered By: Jia Yanes on 02-06-2023 Estimated GFR (MDRD) Amer 111 mL/min >60 [facility] Comment on above: GFR Calc Estimated GFR (MDRD) Non-Af Amer 92 mL/min >60 [facility] Comment on above: Non- GFR Calc Prostate Specific Antigen Screen 1.73 ng/mL 0.00-4.00 [facility] Comment on above: This test was perfor med using the TPSA assay method for the[facility] system. Values obtained with differentassay methods cannot be used interchangably.When changing PSA assays in the course of monitoring apatient, additional sequential testing should be carriedout to confirm baseline values. Thyroid Stimulating Hormone (TSH) 3.00 uIU/mL 0.358-3.74 [facility] Vitamin D 25-Hydroxy 28.7 ng/mL [facility] Comment on above: Vitamin D 25(OH) Sta tus Range Deficiency <20 ng/mL (50nmol/L) Insufficiency 20 - 30 ng/mL (50 - 75 nmol/L) Sufficiency 30 - 100 ng/mL (75 - 250 nmol/L) Toxicity >100 ng/mL (>250 nmol/L) Platelets bldOrdered By: Faith Yanes on 02-06-2023 Platelets (Bld) [#/Vol] 198 10*3/uL 150-450 [facility] Serum or plasma albumin rodrigo urement (mass/volume)Ordered By: Jia Yanes on 02-06-2023 Albumin [Mass/Vol] 3.5 g/dL 3.2-5.0 [facility] Serum or plasma albumin/glob ulin mass ratioOrdered By: Jia Yanes on 02-06-2023 Albumin/Globulin [Mass ratio] 1.0 {ratio} 0.9-2.4 [facility] Serum or plasma calcium rodrigo urement (mass/volume)Ordered By: Jia Yanes on 02-06-2023 Calcium [Mass/Vol] 8.9 mg/dL 8.5-10.1 [facility] Serum or plasma cholesterol in HDL measurement (mass/volume)Ordered By: Jia Yanes on 02-06-2023 Cholesterol in HDL [Mass/Vol] 40 mg/dL >40 [facility] Comment on above: The drugs N-Acetylcy steine and Metamizole may falsely depress this assay. Reference Range HDL <40 mg/dL Low HDL Cholesterol HDL >or= 60 mg/dL High HDL Cholesterol Serum or plasma cholesterol in VLDL measurement (mass/volume)Ordered By: Jia Yanes on 02-06-2023 Cholesterol in VLDL [Mass/Vol] 23 mg/dL 5-40 [facility] Serum or plasma creatinine m easurement (mass/volume)Ordered By: Jia Yanes on 02-06-2023 Creatinine [Mass/Vol] 0.87 mg/dL 0.70-1.30 [facility] Comment on above: The validity of the calculated GFR & GFRAA in patients over 70 years has not been determined. Clinical correlation is essential. Serum or plasma low density lipoprotein (LDL) cholesterol measurement (mass/volume)Ordered By: Jia Yanes on 10-26-2023 Cholesterol in LDL [Mass/Vol] 58 mg/dL 0-130 [facility] Serum or plasma urea nitroge n measurement (mass/volume)Ordered By: Jia Yanes on 02-06-2023 Urea nitrogen [Mass/Vol] 16 mg/dL 7-18 [facility] Thin prep Papanicolaou smear with manual screeningOrdered By: Jia Yanes on 02-06-2023 Thin prep Papanicolaou smear with manual screening 23 U/L 15-37 [facility] Thin prep Papanicolaou smear with manual screening 4 5-15 [facility] Absolute lymphocyte counton 01-30-2022 Lymphocytes Auto (Unsp spec) [#/Vol] 1.79 10*3/uL 0.83-4.51 [facility] Work Phone: Basophil percentageon 2021 Basophils/100 WBC (Bld) 0.8 % 0-1 [facility] Work Phone: Bilirubin [Mass/Vol] 0.50 mg/dL 0.20-1.00 [facility] Work Phone: Comment on above: For patients on eltr ombopag therapy, use of [place] [place] TBIL is not recommended. Chloride [Moles/Vol] 105 mmol/L 98-107 [facility] Work Phone: Cholesterol [Mass/Vol] 148 mg/dL <200 [facility] Work Phone: Comment on above: <200 mg/dL Desirable 200-240 mg/dL Borderline >240 mg/dL High Risk Eosinophils/100 WBC (Bld) 3.1 % 0-5 [facility] Work Phone: Glucose [Mass/Vol] 96 mg/dL 74-106 [facility] Work Phone: Neutrophils (Bld) [#/Vol] 2.8 10*3/uL 2.0-7.7 [facility] Work Phone: Neutrophils/100 WBC (Bld) 53.4 % 47-70 [facility] Work Phone: Potassium [Moles/Vol] 4.1 mmol/L 3.5-5.1 [facility] Work Phone: Protein [Mass/Vol] 7.7 g/dL 6.4-8.2 [facility] Work Phone: Sodium [Moles/Vol] 140 mmol/L 136-145 [facility] Work Phone: Triglyceride [Mass/Vol] 214 mg/dL <199 [facility] Work Phone: Comment on above: The drugs N-Acetylcy steine and Metamizole may falsely depress this assay.Serum Triglycerides Reference Interval Normal <150 mg/dL Borderline high 150 - 199 mg/dL High 200 - 499 mg/dL Very High > or = 500 mg/dL WBC (Bld) [#/Vol] 5.2 10*3/uL 4.4-11.0 [facility] Work Phone: Blood erythrocytes count (nu mber/volume)on 01-30-2022 RBC (Bld) [#/Vol] 4.72 10*6/uL 4.6-6.2 [facility] Work Phone: Blood hemoglobin measurement (mass/volume)on 01-30-2022 Hemoglobin (Bld) [Mass/Vol] 15.0 g/dL 13.0-16.5 [facility] Work Phone: Blood lymphocytes/100 leukoc yteson 01-30-2022 Lymphocytes/100 WBC (Bld) 34.4 % 19-41 [facility] Work Phone: Blood monocytes/100 leukocyt eson 01-30-2022 Monocytes/100 WBC (Bld) 8.1 % 0-10 [facility] Work Phone: Blood platelet mean volumeon 01-30-2022 Platelet mean volume (Bld) [Entitic vol] 9.7 fL 6.2-12.0 [facility] Work Phone: Determination of erythrocyte mean corpuscular volume (MCV)on 01-30-2022 MCV (RBC) [Entitic vol] 91.7 fL 80-94 [facility] Work Phone: [phone] Hematocrit Auto (Bld) [Volum e fraction]on 01-30-2022 Hematocrit (Bld) [Volume fraction] 43.3 % 40-54 [facility] Work Phone: [phone] Laboratory - Chemistry and C hemistry - challengeon 01-30-2022 ALP [Catalytic activity/Vol] 66 U/L 45-117 [facility] Work Phone: [phone] ALT [Catalytic activity/Vol] 35 U/L 16-61 [facility] Work Phone: [phone] CO2 [Moles/Vol] 31.0 mmol/L 21.0-32.0 [facility] Work Phone: [phone] Globulin (S) [Mass/Vol] 3.8 g/dL 2.2-4.2 [facility] Work Phone: [phone] Urea nitrogen/Creatinine [Mass ratio] 14.9 mg/mg 10-20 [facility] Work Phone: [phone] Laboratory - Hematology and Cell countson 01-30-2022 Erythrocyte distribution width (RBC) [Entitic vol] 40.3 fL 35.1-43.9 [facility] Work Phone: [phone] Erythrocyte distribution width (RBC) [Ratio] 12.0 % 11.6-14.6 [facility] Work Phone: [phone] Immature granulocytes/100 WBC (Bld) 0.200 % 0.0-0.9 [facility] Work Phone: [phone] Comment on above: IG% - Immature Granu locytes (promyelocytes, myelocytes and metamyelocytes) > 1% indicates that a LEFT SHIFT is Present. MCH (RBC) [Entitic mass] 31.8 pg 27.0-32.0 [facility] Work Phone: [phone] Nucleated RBC/100 WBC (Bld) [Ratio] 0 % 0-5 [facility] Work Phone: [phone] MCHC Auto (RBC) [Mass/Vol]on 01-30-2022 MCHC (RBC) [Mass/Vol] 34.6 g/dL 32-36 [facility] Work Phone: No Panel Informationon 01-30 Estimated GFR (MDRD) Amer 122 mL/min >60 [facility] Work Phone: Comment on above: GFR Calc Estimated GFR (MDRD) Non-Af Amer 101 mL/min >60 [facility] Work Phone: Comment on above: Non- GFR Calc Prostate Specific Antigen Screen 2.05 ng/mL 0.00-4.00 [facility] Work Phone: Comment on above: This test was perfor med using the TPSA assay method for [employer] chemistry system. Values obtained with differentassay methods cannot be used interchangably.When changing PSA assays in the course of monitoring apatient, additional sequential testing should be carriedout to confirm baseline values. Platelets bldon 01-30-2022 Platelets (Bld) [#/Vol] 215 10*3/uL 150-450 [facility] Work Phone: Serum or plasma albumin rodrigo urement (mass/volume)on 01-30-2022 Albumin [Mass/Vol] 3.9 g/dL 3.2-5.0 [facility] Work Phone: [phone] Serum or plasma albumin/glob ulin mass ratioon 01-30-2022 Albumin/Globulin [Mass ratio] 1.0 {ratio} 0.9-2.4 [facility] Work Phone: [phone] Serum or plasma calcium rodrigo urement (mass/volume)on 01-30-2022 Calcium [Mass/Vol] 9.4 mg/dL 8.5-10.1 [facility] Work Phone: [phone] Serum or plasma cholesterol in HDL measurement (mass/volume)on 01-30-2022 Cholesterol in HDL [Mass/Vol] 32 mg/dL >40 [facility] Work Phone: Comment on above: The drugs N-Acetylcy steine and Metamizole may falsely depress this assay. Reference Range HDL <40 mg/dL Low HDL Cholesterol HDL >or= 60 mg/dL High HDL Cholesterol Serum or plasma cholesterol in VLDL measurement (mass/volume)on 01-30-2022 Cholesterol in VLDL [Mass/Vol] 43 mg/dL 5-40 [facility] Work Phone: Serum or plasma creatinine m easurement (mass/volume)on 01-30-2022 Creatinine [Mass/Vol] 0.81 mg/dL 0.70-1.30 [facility] Work Phone: Comment on above: The validity of the calculated GFR & GFRAA in patients over 70 years has not been determined. Clinical correlation is essential. Serum or plasma low density lipoprotein (LDL) cholesterol measurement (mass/volume)on 01-30-2022 Cholesterol in LDL [Mass/Vol] 73 mg/dL 0-130 [facility] Work Phone: Serum or plasma urea nitroge n measurement (mass/volume)on 01-30-2022 Urea nitrogen [Mass/Vol] 12 mg/dL 7-18 [facility] Work Phone: Thin prep Papanicolaou smear with manual screeningon 01-30-2022 Thin prep Papanicolaou smear with manual screening 30 U/L 15-37 [facility] Work Phone: Thin prep Papanicolaou smear with manual screening 4 5-15 [facility] Work Phone: WRIST LEFT COMPLETEon 2021 WRIST LEFT COMPLETE EXAM: WRIST LEFT COMPLETE HISTORY: Pain history of fracture and surgery, swelling and pain for 2 days COMPARISON: None. FINDINGS/IMPRESSION: Postsurgical changes of proximal row carpectomy. 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 Osseous fragmentation along the proximal row is likely postsurgical as the fragments are well corticated. Osteopenia. No evidence of acute fracture. Normal [facility] XR FLUORO 1-2 HRS TECH TIMEo n 10-19-2020 XR FLUORO 1-2 HRS TECH TIME ORIGINAL EXAMINATION: FLUORO MD - > 1 HR10/17/2020 10:29 am HISTORY: ORDERING SYSTEM PROVIDED HISTORY: hip arthroplasty Reason for Exam: hip arthroplasty FINDINGS: 9.3 seconds of fluoroscopic time was utilized by the surgeon in performing the operative procedure. 5 spot images were retained demonstrating placement of a right hip prosthesis. Detail is limited. See operative report. Interpreted by: Celia Mora MD Preliminary Report By: Celia Mora MD Electronically signed By Celia Mora MD Dictated Date: 10/18/2020 10:53:07 PM Prelim Date: 10/18/2020 10:57:07 PM Sign Date: 10/18/2020 10:57:07 PM Ordering Provider: BACILIO Lawrence [facility] ([place] HIP RIGHT W/PELVIS 4 VIEW Son 10-17-2020 XR HIP RIGHT W/PELVIS 4 VIEWS ORIGINAL EXAMINATION: ONE XRAY VIEW OF THE PELVIS AND TWO XRAY VIEWS RIGHT HIP10/17/2020 10:41 am HIP UNILATERAL 2V W/PELVIS RIGHT TECHNIQUE: AP and shoot through lateral views of the hip were performed. COMPARISON: None. HISTORY: ORDERING SYSTEM PROVIDED HISTORY: Status Post Arthroplasty Reason for Exam: Status Post Arthroplasty FINDINGS: The patient is status post right hip replacement. There is appropriate position of the prosthesis. There are postsurgical changes in the soft tissues. No acute fracture is demonstrated. Total left hip replacement with anatomic alignment noted. There are degenerative changes of the bilateral, left greater than right sacroiliac joints. IMPRESSION: Postsurgical changes of the right hip status post hip replacement. Interpreted by: Stiven Jung MD Preliminary Report By: Stiven Jung MD Electronically signed By Stiven Jung MD Dictated Date: 10/17/2020 11:04:03 AM Prelim Date: 10/17/2020 11:05:50 AM Sign Date: 10/17/2020 11:05:50 AM Ordering Provider: BACILIO Lawrence [facility] ([place] .Auto Diffon 10-02-2020 Basophil, Absolute 0.00 10 3/mcL Normal 0.00-0.19 [facility] ([place]) Comment on above: Performed By: #### B MP, GFR #### [address] [address] #### CBC, ADIFF, ANEU #### [place] [address] [place], [place] [address] Basophils/100 WBC (Bld) 0.5 % Normal 0.0-2.5 A [facility] ([place]) Comment on above: Performed By: #### B MP, GFR #### [place] [address] #### CBC, ADIFF, ANEU #### [address] [address] Eosinophil, Absolute 0.10 10 3/mcL Normal 0.00-0.40 A [facility] ([place]) Comment on above: Performed By: #### B MP, GFR #### [place] [address] #### CBC, ADIFF, ANEU #### [address] [address] Eosinophils/100 WBC (Bld) 2.0 % Normal 0.0-7.0 [facility] ([place]) Comment on above: Performed By: #### B MP, GFR #### [place] [address] #### CBC, ADIFF, ANEU #### [address] [address] Lymphocyte, Absolute 2.00 10 3/mcL Normal 0.77-3.85 A [facility] ([place]) Comment on above: Performed By: #### B MP, GFR #### [place] [address] #### CBC, ADIFF, ANEU #### [address] [address] Lymphocytes/100 WBC (Bld) 30.7 % Normal 10.0-50.0 [facility] ([place] Comment on above: Performed By: #### B MP, GFR #### [place] [address] #### CBC, ADIFF, ANEU #### [address] [address] Monocyte, Absolute 0.50 10 3/mcL Normal 0.15-1.00 [facility] ([place]) Comment on above: Performed By: #### B MP, GFR #### [place] [address] #### CBC, ADIFF, ANEU #### [address] [address] Monocytes/100 WBC (Bld) 7.4 % Normal 1.7-13.0 A [facility] ([place] Comment on above: Performed By: #### B MP, GFR #### [address] [address] #### CBC, ADIFF, ANEU #### [address] [address] Neutrophils/100 WBC (Bld) 59.4 % Normal 37.0-80.0 [facility] ([place] Comment on above: Performed By: #### B MP, GFR #### [address] [address] #### CBC, ADIFF, ANEU #### [address] [address] .GFRon 10-02-2020 GFR Non- 104 ml/min/1.73sqm Normal [facility] ([place]) Comment on above: Result Comment: GFR Population mean for , Non- Americans Ages 20-29 = 116 mL/min/1.73 sq.m. Ages 30-39 = 107 mL/min/1.73 sq.m. Ages 40-49 = 99 mL/min/1.73 sq.m. Ages 50-59 = 93 mL/min/1.73 sq.m. Ages 60-69 = 85 mL/min/1.73 sq.m. Ages 70+ = 75 mL/min/1.73 sq.m. Chronic Kidney Disease: Less than 60 mL/min/1.73 square meters End Stage Renal Disease: Less than 15 mL/min/1.73 square meters Performed By: #### B MP, GFR #### [address] [address] #### CBC, ADIFF, ANEU #### [address] [address] GFR 126 ml/min/1.73sqm Normal [facility] ([place]) Comment on above: Result Comment: GFR Population mean for , Non- Americans Ages 20-29 = 116 mL/min/1.73 sq.m. Ages 30-39 = 107 mL/min/1.73 sq.m. Ages 40-49 = 99 mL/min/1.73 sq.m. Ages 50-59 = 93 mL/min/1.73 sq.m. Ages 60-69 = 85 mL/min/1.73 sq.m. Ages 70+ = 75 mL/min/1.73 sq.m. Chronic Kidney Disease: Less than 60 mL/min/1.73 square meters End Stage Renal Disease: Less than 15 mL/min/1.73 square meters Performed By: #### B MP, GFR #### [place] [address] #### CBC, ADIFF, ANEU #### [address] [address] .NEUABSon 10-02-2020 Neutrophil, Absolute 3.90 10 3/mcL Normal 2.85-6.16 A [facility] ([place] Comment on above: Performed By: #### B MP, GFR #### [place] [address] #### CBC, ADIFF, ANEU #### [address] [address] BMPon 10-02-2020 BUN/Creatinine Ratio 23 ratio Normal 7-27 [facility] [place] Comment on above: Performed By: #### B MP, GFR #### [place] [address] #### CBC, ADIFF, ANEU #### [address] [address] Calcium [Mass/Vol] 9.1 mg/dL Normal 8.4-10.2 [facility] ([place]) Comment on above: Performed By: #### B MP, GFR #### [place] [address] #### CBC, ADIFF, ANEU #### [address] [address] Chloride [Moles/Vol] 102 mmol/L Normal 98-107 [facility] [place] Comment on above: Performed By: #### B MP, GFR #### [address] [address] #### CBC, ADIFF, ANEU #### [address] [address] CO2 [Moles/Vol] 31 mmol/L Normal 23-31 [facility] ([place] Comment on above: Performed By: #### B MP, GFR #### [address] [address] #### CBC, ADIFF, ANEU #### [address] [address] Creatinine [Mass/Vol] 0.75 mg/dL Normal 0.70-1.30 [facility] ([place]) Comment on above: Performed By: #### B MP, GFR #### [address] [address] #### CBC, ADIFF, ANEU #### [address] [address] Electrolyte Balance 9.0 mEq/L Normal [facility] ([place]) Comment on above: Performed By: #### B MP, GFR #### [address] [address] #### CBC, ADIFF, ANEU #### [address] [address] Glucose [Mass/Vol] 76 mg/dL Low 80-115 [facility] ([place]) Comment on above: Performed By: #### B MP, GFR #### [address] [address] #### CBC, ADIFF, ANEU #### [address] [address] Potassium [Moles/Vol] 4.4 mmol/L Normal 3.5-5.1 [facility] ([place]) Comment on above: Performed By: #### B MP, GFR #### [address] [address] #### CBC, ADIFF, ANEU #### [address] [address] Sodium [Moles/Vol] 142 mmol/L Normal 136-145 [facility] ([place] Comment on above: Performed By: #### B MP, GFR #### [address] [address] #### CBC, ADIFF, ANEU #### [address] [address] Urea nitrogen [Mass/Vol] 17 mg/dL Normal 7-18 [facility] ([place] Comment on above: Performed By: #### B MP, GFR #### [place] [address] #### CBC, ADIFF, ANEU #### [address] [address] CBCon 10-02-2020 Erythrocyte distribution width (RBC) [Ratio] 12.8 % Normal 11.5-14.5 [facility] ([place] Comment on above: Order Comment: Pre-A dmission Testing Performed By: #### B MP, GFR #### [place] [address] #### CBC, ADIFF, ANEU #### [address] [address] Hematocrit (Bld) [Volume fraction] 40.6 % Low 42.0-52.0 [facility] ([place] Comment on above: Order Comment: Pre-A dmission Testing Performed By: #### B MP, GFR #### [place] [address] #### CBC, ADIFF, ANEU #### [address] [address] Hgb 14.3 G/dL Normal 14.0-18.0 [facility] ([place] Comment on above: Order Comment: Pre-A dmission Testing Performed By: #### B MP, GFR #### [place] [address] #### CBC, ADIFF, ANEU #### [address] [address] MCH (RBC) [Entitic mass] 32.4 pg High 27.0-31.2 [facility] ([place] Comment on above: Order Comment: Pre-A dmission Testing Performed By: #### B MP, GFR #### [place] [address] #### CBC, ADIFF, ANEU #### [address] [address] MCHC 35.2 G/dL Normal 31.8-35.4 [facility] ([place] Comment on above: Order Comment: Pre-A dmission Testing Performed By: #### B MP, GFR #### [place] [address] #### CBC, ADIFF, ANEU #### [address] [address] MCV (RBC) [Entitic vol] 92.1 fL Normal 80.0-94.0 A [facility] ([place] Comment on above: Order Comment: Pre-A dmission Testing Performed By: #### B MP, GFR #### [place] [address] #### CBC, ADIFF, ANEU #### [address] [address] Platelet 203 10 3/mcL Normal 130-400 [facility] ([place] Comment on above: Order Comment: Pre-A dmission Testing Performed By: #### B MP, GFR #### [place] [address] #### CBC, ADIFF, ANEU #### [address] [address] Platelet mean volume (Bld) [Entitic vol] 8.1 fL Normal 7.4-10.4 [facility] ([place] Comment on above: Order Comment: Pre-A dmission Testing Performed By: #### B MP, GFR #### [place] [address] #### CBC, ADIFF, ANEU #### [address] [address] RBC 4.41 10 6/mcL Normal 4.04-6.13 [facility] ([place] Comment on above: Order Comment: Pre-A dmission Testing Performed By: #### B MP, GFR #### [address] [address] #### CBC, ADIFF, ANEU #### [place] [address] [place], [place] [address] WBC 6.60 10 3/mcL Normal 4.60-10.80 [facility] ([place] Comment on above: Order Comment: Pre-A dmission Testing Performed By: #### B MP, GFR #### [address] [address] #### CBC, ADIFF, ANEU #### [place] [address] [place], [place] [address] Vital Signs Date Time Vital Sign Value Performing Clinician Faci lity 12-09-2024 08:05-0400 Body height 180.[address] Jia Yanes MD Work Phone: [facility] 12-09-2024 08:05-0400 Body mass index (BMI) [Ratio] 27.8 kg/m2 Dr. Jia Yanes MD Work Phone: [facility] 12-09-2024 08:05-0400 Body weight 90.[address] Jia Yanes MD Work Phone: [facility] 12-09-2024 08:05-0400 Diastolic blood pressure 68 mm[Hg] Dr. Jia Yanes MD Work Phone: [facility] 12-09-2024 08:05-0400 Heart rate 60 /min Dr. Jia Yanes MD Work Phone: [facility] 12-09-2024 08:05-0400 Respiratory rate 16 /min Dr. Jia Yanes MD Work Phone: [facility] 12-09-2024 08:05-0400 Systolic blood pressure 119 mm[Hg] Dr. Jia Yanes MD Work Phone: [facility] 08-16-2024 07:52-0400 Body weight 94.[address] Jia Yanes MD Work Phone: [facility] 08-13-2024 07:48-0400 Body mass index (BMI) [Ratio] 29.1 kg/m2 Dr. Jia Yanes MD Work Phone: [facility] 08-11-2024 15:46-0400 Body mass index (BMI) [Ratio] 29.1 kg/m2 Dr. Jia Yanes MD Work Phone: 2(028)468-036766 [place] [address] 08-11-2024 15:46-0400 Body weight 94.[address] Jia Yanes MD Work Phone: 1(691)852-450966 [place] [address] 08-11-2024 15:46-0400 Diastolic blood pressure 68 mm[Hg] Dr. Jia Yanes MD Work Phone: 3(629)506-706866 [place] [address] 08-11-2024 15:46-0400 Heart rate 76 /min Dr. Jia Yanes MD Work Phone: 1(458)463-812866 [place] [address] 08-11-2024 15:46-0400 Respiratory rate 16 /min Dr. Jia Yanes MD Work Phone: 2(525)214-551566 [place] [address] 08-11-2024 15:46-0400 Systolic blood pressure 137 mm[Hg] Dr. Jia Yanes MD Work Phone: [facility] 02-03-2023 13:03-0400 Body height 180.[address] Jia Yanes Work Phone: [facility] 02-03-2023 13:03-0400 Body mass index (BMI) [Ratio] 29.5 kg/m2 Dr. Jia Yanes Work Phone: [facility] 02-03-2023 13:03-0400 Body temperature 98.4 [degF] Dr. Jia Yanes Work Phone: [facility] 02-03-2023 13:03-0400 Body weight 95.[address] Jia Yanes Work Phone: [facility] 02-03-2023 13:03-0400 Diastolic blood pressure 78 mm[Hg] Dr. Jia Yanes Work Phone: [facility] 02-03-2023 13:03-0400 Heart rate 64 /min Dr. Jia Yanes Work Phone: [facility] 02-03-2023 13:03-0400 Respiratory rate 16 /min Dr. Jia Yanes Work Phone: [facility] 02-03-2023 13:03-0400 SaO2% (BldA) [Mass fraction] 95 % Dr. Jia Yanes Work Phone: [facility] 02-03-2023 13:03-0400 Systolic blood pressure 126 mm[Hg] Dr. Jia Yanes Work Phone: [facility] 02-04-2022 13:04-0400 Body temperature 97.3 [degF] Dr. Jia Yanes Work Phone: [facility] Work Phone: 02-04-2022 13:04-0400 Body weight 95.[address] Jia Yanes Work Phone: [facility] Work Phone: 02-04-2022 13:04-0400 Diastolic blood pressure 74 mm[Hg] Dr. Jia Yanes Work Phone: [facility] Work Phone: 02-04-2022 13:04-0400 Heart rate 64 /min Dr. Jia Yanes Work Phone: [facility] Work Phone: 02-04-2022 13:04-0400 Respiratory rate 16 /min Dr. Jia Yanes Work Phone: [facility] Work Phone: 02-04-2022 13:04-0400 SaO2% (BldA) [Mass fraction] 96 % Dr. Jia Yanes Work Phone: [facility] Work Phone: 02-04-2022 13:04-0400 Systolic blood pressure 131 mm[Hg] Dr. Jia Yanes Work Phone: [facility] Work Phone: 08-28-2021 07:15-0400 Body temperature 97.2 [degF] Dr. Jia Yanes Work Phone: [facility] Work Phone: 08-28-2021 07:15-0400 Diastolic blood pressure 71 mm[Hg] Dr. iJa Yanes Work Phone: [facility] Work Phone: 08-28-2021 07:15-0400 Heart rate 57 /min Dr. Jia Yanes Work Phone: [facility] Work Phone: 08-28-2021 07:15-0400 Respiratory rate 16 /min Dr. Jia Yanes Work Phone: [facility] Work Phone: 08-28-2021 07:15-0400 SaO2% (BldA) [Mass fraction] 93 % Dr. Jia Yanes Work Phone: [facility] Work Phone: 08-28-2021 07:15-0400 Systolic blood pressure 120 mm[Hg] Dr. Jia Yanes Work Phone: [facility] Work Phone: 08-28-2021 05:50-0400 Body height 180.[address] Jia Yanes Work Phone: [facility] Work Phone: 08-28-2021 05:50-0400 Body mass index (BMI) [Ratio] 27.6 kg/m2 Dr. Jia Yanes Work Phone: [facility] Work Phone: 08-28-2021 05:50-0400 Body weight 89.[address] Jia Yanes Work Phone: [facility] Work Phone: Encounters Encounter Date Encounter Type Care Provider Facility Start: 02-10-2025 End: 02-10-2025 ambulatory [facility] Start: 12-09-2024 End: 12-09-2024 Patient encounter procedure Kee FONTANA [facility] Work Phone: Start: 12-09-2024 End: 12-09-[address] Jia Yanes MD Work Phone: -[facility] Start: 08-16-2024 End: 08-16-2024 Admission to same day surgery center Dr. 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 Jagjit Rod MD -[facility] Work Phone: Start: 08-11-2024 End: 08-11-2024 ambulatory [facility] Start: 08-11-2024 End: 08-11-2024 ambulatory [facility] Facility:[facility] Start: 07-20-2024 ambulatory [facility] Facility :[facility] Start: 04-11-2024 End: 04-12-2024 ambulatory [facility] Facility:[facility] Start: 03-18-2024 End: 03-18-2024 ambulatory [facility] Start: 03-09-2024 End: 03-09-2024 ambulatory [facility] Start: 02-12-2024 End: 02-12-2024 ambulatory [facility] Facility:[facility] Start: 02-06-2023 End: 02-06-[address] Jia Yanes Work Phone: [facility] Work Phone: Start: 02-06-2023 End: 02-06-[address] Jia Yanes Work Phone: [facility] Work Phone: Start: 02-03-2023 End: 02-03-[address] Jia Yanes Work Phone: [facility] Work Phone: Start: 02-04-2022 End: 02-04-[address] Jia Yanes Work Phone: [facility] [place] Start: 01-30-2022 End: 01-30-[address] Jia Yanes Work Phone: [facility] Work Phone: Start: 01-30-2022 End: 01-30-[address] Jia Yanes Work Phone: [facility] Start: 12-16-2021 End: 12-16-2021 ambulatory NONE NONE Facility:[facility] Start: 08-28-2021 Non-patient / Non-visit Dr. Oneida Yanes Work Phone: [facility] Start: 08-28-2021 End: 08-28-2021 Admission to same day surgery center Dr. Jia Yanes Work Phone: [facility] Start: 02-05-[address] Jia Yanes Work Phone: [facility] Procedures Date Procedure Procedure Detail Performing Clinician Start: 08-11-2024 Evaluation of diagno stic study results Dr. Jia Yanes MD Work Phone: Start: 05-17-[address] Jia Yanes Work Phone: Plan of Treatment Date Care Activity Detail Author Start: 08-16-2024 Patient discharge [facility] Catheterization of left heart [facility] Patient referral [facility] Work Phone: [facility] Immunizations Immunization Date Immunization Notes [facility] influenza, seasonal, injectable, preservative free Dr. Jia Yanes MD Work Phone: [facility] 02-12-2023 influenza, injectabl e, quadrivalent, preservative free Dr. Jia Yanes MD Work Phone: [facility] 02-04-2022 pneumococcal polysaccharide vaccine, [address] Jia Yanes Work Phone: [facility] 01-21-2022 influenza, injectabl e, quadrivalent, preservative free Dr. Jia Yanes Work Phone: [facility] 01-21-2022 influenza, seasonal, injectable Dr. Jia Yanes Work Phone: [facility] Work Phone: 02-14-2021 Covid (Moderna) Dr. Jia morley Work Phone: [facility] 02-14-2021 influenza, injectabl e, quadrivalent, preservative free Dr. Jia Yanes Work Phone: [facility] 02-14-2021 influenza, seasonal, injectable Dr. Jia Yanes Work Phone: [facility] Work Phone: 05-16-2020 Covid (Moderna) Dr. Jia morley Work Phone: [facility] 04-18-2020 Covid (Moderna) Dr. Jia morley Work Phone: [facility] 02-17-2020 influenza, injectabl e, quadrivalent, preservative free Dr. Jia Yanes Work Phone: [facility] 02-17-2020 influenza, seasonal, injectable Dr. Jia Yanes Work Phone: [facility] Work Phone: 03-19-[address] Jia Yanes Work Phone: [facility] 01-12-2019 influenza, injectabl e, quadrivalent, preservative free Dr. Jia Yanes Work Phone: [facility] 01-12-2019 influenza, seasonal, injectable Dr. Jia Yanes Work Phone: [facility] Work Phone: 03-03-2018 influenza, injectabl e, quadrivalent, preservative free Dr. Jia Yanes Work Phone: [facility] 03-03-2018 influenza, seasonal, injectable Dr. Jia Yanes Work Phone: [facility] Work Phone: 01-08-2017 influenza, injectabl e, quadrivalent, preservative free Dr. Jia Yanes Work Phone: [facility] 01-08-2017 influenza, seasonal, injectable Dr. Jia Yanes Work Phone: [facility] Work Phone: 02-21-2016 influenza, injectabl e, quadrivalent, preservative free Dr. Jia Yanes Work Phone: [facility] 02-21-2016 influenza, seasonal, injectable Dr. Jia Yanes Work Phone: [facility] Work Phone: 03-08-2014 influenza, injectabl e, quadrivalent, preservative free Dr. Jia Yanes Work Phone: [facility] 03-08-2014 influenza, seasonal, injectable Dr. Jia Yanes Work Phone: [facility] Work Phone: 04-21-[address] Jia Yanes Work Phone: [facility] Payers Date Payer Category Payer Unknown [id number] [id number] Self-pay [id number] 1959 Private Health Insurance 101 [id number] 1950 Unknown [id number] 2.16.8 [id number] Unknown [id number] Unknown [id number] Unknown [id number] 2.16.8 [id number] Unknown [id number] 2.16.8 [id number] Unknown [id number] 2.16.8 [id number] Unknown [id number] 2.16.8 [id number] Unknown [id number] 2.16.8 [id number] Unknown [id number] 2.16.8 [id number] Unknown [id number] 2.16.8 [id number] Unknown [id number] 2.16.8 [id number] Unknown [id number] 2.16.8 [id number] Unknown [id number] 2.16.8 [id number] Unknown [id number] 2.16.8 [id number] Unknown [id number] 2.16.8 [id number] Unknown [id number] 2.16.8 [id number] Social History Date Type Detail Facility Start: 08-24-2021 End: 02-03-2023 Tobacco smoking status NHIS Unknown if ever smoked [facility] Start: 08-07-2020 None [facility] Start: 12-09-2019 Non-smoker [facility] Start: 1950 Sex Assigned At Male [facility] Start: 08-16-2024 Tobacco smoking stat us KSIS Never smoked tobacco (finding) [facility] Medical Equipment Procedure Code Equipment Code Equipment Origin al Text Equipment Identifier Dates Minimally invasive total replacement of hip joint by anterior approach 0degree polyethylene insert FDA Start: 12-22-2019 Minimally invasive total replacement of hip joint by anterior approach 127degree neck angle hip stem FDA Start: 12-22-2019 Minimally invasive total replacement of hip joint by anterior approach ceramic v40 femoral head FDA Start: 12-22-2019 Minimally invasive total replacement of hip joint by anterior approach clusterhole acetabular shell FDA Start: 12-22-2019 Minimally invasive total replacement of hip joint by anterior approach 0degree polyethylene insert FDA Start: 12-22-2019 Minimally invasive total replacement of hip joint by anterior approach 127degree neck angle hip stem FDA Start: 12-22-2019 Minimally invasive total replacement of hip joint by anterior approach ceramic v40 femoral head FDA Start: 12-22-2019 Minimally invasive total replacement of hip joint by anterior approach clusterhole acetabular shell FDA Start: 12-22-2019 Minimally invasive total replacement of hip joint by anterior approach 0degree polyethylene insert FDA Start: 12-22-2019 Minimally invasive total replacement of hip joint by anterior approach 127degree neck angle hip stem FDA Start: 12-22-2019 Minimally invasive total replacement of hip joint by anterior approach ceramic v40 femoral head FDA Start: 12-22-2019 Minimally invasive total replacement of hip joint by anterior approach clusterhole acetabular shell FDA Start: 12-22-2019 Minimally invasive total replacement of hip joint by anterior approach 0degree polyethylene insert FDA Start: 12-22-2019 Minimally invasive total replacement of hip joint by anterior approach 127degree neck angle hip stem FDA Start: 12-22-2019 Minimally invasive total replacement of hip joint by anterior approach ceramic v40 femoral head FDA Start: 12-22-2019 Minimally invasive total replacement of hip joint by anterior approach clusterhole acetabular shell FDA Start: 12-22-2019 Mental Status Date Assessment Result Facility 08-28-2021 Cognitive function Voice/Name [facility] Work Phone: Progress note 12-09-2024 Note Date & Type Note Facility 12-09-[address] [facility] Progress note 12-09-2024 Note Date & Type Note Facility 12-09-2024 Progress note Note Date/Time December 09, 2024 8:47am [facility] 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 He denies any chest pain or shortness with or paroxysmal nocturnal dyspnea or pedal edema no neck arm or jaw discomfort suggest angina. He underwent to the coronary calcium score and it demonstrated an elevated score with a total Agatston score of 2600 with a score of 1679 in the right coronary artery, 355 inthe circumflex artery and 506 in the left anterior descending artery. Heart cathstation 08/16/2024 showed coronary artery calcification with no high-grade stenosis present with moderate disease noted in the right coronary artery and mild to moderate disease noted in the left anterior descending artery. Ejectionfraction was noted be preserved. Medical therapy was recommended. He denies chest, arm, jaw, or neck discomfort. He denies palpitations. He denies bilateral lower extremity edema. He denies claudication. He denies shortness of breath with activity, shortness of breath at rest, orthopnea, or PND. He denies chronic cough. He denies significant, sudden weight gain. He denies lightheadedness, dizziness, near-syncope, or syncope. He denies blood inurine, blood in stool, or epistaxis. He denies fever with chills. He denies myalgia. He denies fatigue. His exercise level has remained stable. Intake Vital Signs 08/11/24 15:46 08/16/24 07:52 12/09/24 08:05 Height 5 ft 11 in 5 ft 11 in 5 ft 11 in Weight: 200 lb BMI 27.8 BP 119/68 Blood Pressure Location Lt brachial Position Sitting Respiration 16 Pulse 60 Pulse Source NIBP Intake Visit Reasons: 4 M FU [employer] Required: No Is patient in pain?: No Allergies Sulfa (Sulfonamide Antibiotics) Allergy (Verified 12/09/24 08:12) Hives Medications ?Medication ?Instructions ?Recorded ?Confirmed ?Type multivitamin 1 tab PO DAILY 01/27/2011/13 History lisinopril 10 mg tablet 10 mg PO DAILY #90 tabs 11/1312/09/24 Rx cholecalciferol (vitamin D3) 25 25 mcg PO QDAY 5 12/09/24 History mcg (1,000 unit) capsule omega-3 fatty acids 1,000 mg 500 mg PO QDAY 08/11/24 0 12/09/24 History capsule (Fish Oil Concentrate) atorvastatin 10 mg tablet 10 mg PO QHS cholesterol #90 tabs 11/09/24 12/09/24 Rx aspirin 81 mg tablet,delayed 81 mg PO DAILY #90 tabs 0 12/09/24 12/09/24 Rx release (Adult Aspirin Regimen) glucosamine-chondroitin 250 mg-200 1 tab PO DAILY 11/1312/09/24 History mg tablet Ejection fraction %: 59 Have you fallen in the past year?: No PFSH Medical History Essential hypertension Fatigue Abnormal CT scan of heart Impacted cerumen of both ears Vertigo Arthritis BiPAP (biphasic positive airway pressure) dependence WILLIE (obstructive sleep apnea) Hearing loss Osteoarthritis Seasonal allergies Other and unspecified hyperlipidemia Surgical History History of right hip replacement History of left hip replacement History of testicular surgery History of cataract extraction left wrist left knee Family History Mother Breast cancer CVA (cerebral vascular accident) Grandfather CVA (cerebral vascular accident) Arthritis Grandmother CVA (cerebral vascular accident) Mental disorder Social History Smoking Status: Never smoker alcohol intake: never substance use type: does not use what type of physical activity do you participate in: walking, bicycling and swimming ROS Const Const: Negative for fatigue or weakness Eyes Eyes: Negative for change in vision ENT ENT: Negative for dizziness or balance problems Cardio Chest Pain: No Palpitations: No Edema: None Muscle aches with walking: None Resp Respiratory: Negative for SOB with activity, SOB at rest or SOB orthopnea\\SOB lying down GI GI: Negative nausea or heartburn : Negative for hematuria or frequent nighttime urination/ nocturia Musc Musc: Negative for balance problems Skin Skin: Negative non-healing lesions or rash Neuro Neuro: Negative for dizziness, lightheadedness, near syncope, syncope or weakness Endo Endo: Negative for fatigue Allergy Allergy/Immunology: Negative for rash Cardiology Exam Const Appearance: cooperative, healthy appearing, comfortable and no acute distress Nutritional Appearance: well nourished and overweight Orientation: alert, awake and oriented x3 Head Head: normal to inspection Ears: hearing grossly normal bilaterally Nose: external nose normal Face and Sinus: face symmetric Mouth: moist mucous membranes Eyes General: appearance normal, both eyes and all related structures Eyelids: eyelids normal EOM: EOM intact bilaterally Neck Neck: normal visual inspection and no JVD Carotids: normal carotid upstroke Chest Chest inspection: normal inspection of the chest, symmetric chest movement and normal respiratory effort; Negative cough Auscultation: Bilateral: Clear to Auscultation Cardio Rate: regular rate Rhythm: regular rhythm Heart sounds: S1 normal and S2 normal; Negative rub, gallop or murmur GI GI: normal to inspection Neuro General: patient alert, patient awake, patient oriented x3 and CN's II-XI intactbilaterally Skin Skin: no rashes or lesions noted Extremities Pulses: Normal: Right Posterior Tibial Pulse, Left Posterior Tibial Pulse, RightRadial Pulse and Left Radial Pulse Lower Extremity Edema: None: Bilateral Psych Psychological: normal affect Supplemental Info Supplemental Information Stress Test 08/31/20 Impression: 1. There is no evidence of significant ischemia or infarction. 2. The gated Cardiolite study reports an LVEF of 59%. Coronary Angiography CT 07/20/24 Findings Coronary Artery Left Main (LM): 60 Left Anterior Descending (LAD): 506 Left Circumflex (LCX): 355 Right Coronary Artery (RCA): 1,679 Total Agatston Score: 2,600 Conclusion: Extensive coronary artery plaquing involving all 3 blood vessels. Heart catheterization from 08/16/2024: CONCLUSIONS Coronary artery calcification with no high-grade stenosis present. Moderate disease noted in the right coronary artery and mild to moderate disease noted in the left anterior descending artery. Preserved ejection fraction. RECOMMENDATIONS Medical therapy CORONARY ANGIOGRAPHY DOMINANCE: Right Dominant LEFT HEART ASSESSMENT Left Ventricular Ejection Fraction: by LV Gram 65 % Normal LV wall motion Normal Left Ventricular systolic function LEFT MAIN: Mild calcification, No significant disease noted LEFT ANTERIOR DESCENDING ARTERY: Moderate calcification, Mild luminal irregularities less than 30% CIRCUMFLEX ARTERY: Mild calcification, Mild luminal irregularities RIGHT CORONARY ARTERY: Severe calcification Moderate proximal stenosis estimated to be 40% in the proximal to mid regions and mild diffuse disease noted in the mid to distal regions. Assessment and Plan Assessment and Plan (1) Abnormal CT scan of heart: Status: Chronic Plan: He does have an abnormal CT scan with a coronary calcium score of over 2600. Heproceeded with heart catheterization on 08/16/2024 that showed no high-grade stenosis. He was encouraged to resume aspirin therapy. His most recent lipid panel and statin medications reviewed. Overall, no changes made. He will continue to focus on lifestyle modifications. He will continue current medical therapy. (2) Essential hypertension: Status: Chronic Plan: Patient's blood pressure is well-controlled. We will continue to monitor. We will not make any medication regimen changes. Medications: Refilled aspirin (Adult Aspirin Regimen) 81 mg PO DAILY 90 tabs 3RF Plan Details Additional Comments: Thank you for allowing us to participate in the patients plan of care, if you have any questions please do not hesitate to call. Plan was reviewed with patient/family member along with red flag symptoms. Understanding was acknowledged. Questions were answered to apparent satisfaction. This note was generated using a voice recognition system and there may be incorrect words, spelling or punctuation that were not noted when reviewing the office note prior to saving. Portions of this documentation were copied and pasted from previous office visitnotes to provide a cohesive continuity of the history. The note has been reviewed, edited, and updated, as necessary. 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 Jia Yanes MD ~ [facility] Work Phone: Evaluation note 08-11-2024 Note Date & Type Note Facility 08-11-2024 Evaluation note Diagnosis Onset Date Resolution Abnormal CT scan of heart chronic August 11, 2024 3:38pm Essential hypertension chronic Ap ril 2024 3:38pm Abnormal CT scan of heart chronic December 09 7:46am Essential hypertension chronic [place] 2024 7:46am [facility] Work Phone: Evaluation note Note Date & Type Note Facility Evaluation note Diagnosis Onset Date Personal history of colonic polyps acute [facility] Work Phone: Evaluation note Note Date & Type Note Facility Evaluation note Diagnosis Onset Date History of left hip replacement acute History of right hip replacement acute Hearing loss chronic WILLIE (obstructive sleep apnea) chronic Osteoarthritis chronic Other and unspecified hyperlipidemia chronic [facility] Work Phone: Evaluation note Note Date & Type Note Facility Evaluation note Diagnosis Onset Date Essential hypertension acute Impacted cerumen of right ear acute Right ankle sprain acute WILLIE (obstructive sleep apnea) chronic Osteoarthritis chronic Other and unspecified hyperlipidemia chronic [facility] Work Phone: Reason for referral (narrative) Note Date & Type Note Facility Reason for referral (narrative) No reason for referral information available [facility] Work Phone: Summary Purpose Family History No Family History Records Found Relationship Condition Age at Onset Recorded Date/T miki mother Malignant neoplasm of breast Unknown Cerebrovascular accident (CVA) Unknown grandfather Cerebrovascular accident (CVA) Unknown Arthritis Unknown grandmother Cerebrovascular accident (CVA) Unknown Mental disorder Unknown Advance Directives No Advanced Directives Records Found Advance Directive Response Recorded Date/ Time Living Will No August 24, 2021 2 :12pm Power of Club Attendant No August 24, 2021 2:12pm Advance Directive Response Recorded Date/ Time Advance Directives on File No August 162024 7:52am Living Will Yes August 16, 2024 7: 52am Do you have a Healthcare Power of Club Attendant? 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 Hearing loss WILLIE (obstructive sleep apnea) Osteoarthritis Other and unspecified hyperlipidemia Chief Complaint Annual INT LABS Reason for Visit Essential hypertensi on Impacted cerumen of right ear Right ankle sprain WILLIE (obstructive sleep apnea) Osteoarthritis Other and unspecified hyperlipidemia Chief Complaint Admit Date ABN CCTA (DENISE) August 11, 2024 3:3 8pm INT LAB ORDERS August 11, 2024 4:3 1pm Abnormal findings on diagnostic imaging of heart a August 16, 2024 7:11am 4 M FU December 09, 2024 7: 46am Reason for Visit Admit Date Abnormal CT scan of heart August 11 3:38pm Essential hypertension August 11, 2024 3:38pm Abnormal CT scan of heart December 09, 2 025 7:46am Essential hypertension December 09, 2024 7:46am Additional Source Comments (unrecognized sect ion and content) No Status Records FoundNo Status Records FoundNo Status Records Found INFORMATION SOURCE (unrecogn ized section and content) DATE CREATED AUTHOR 10/19/2020 [facility] ([place]) DATE CREATED AUTHOR AUTHOR'S ORGANIZ ATION 12/22/2021 [facility] DATE CREATED AUTHOR AUTHOR'S ORGANIZ ATION [facility] Goals (unrecognized section and content) Goals may be documented in a n alternate sectionGoals may be documented in an alternate sectionGoals may be documented in an alternate sectionGoals may be documented in an alternate section Care Teams (unrecognized sec tion and content) Team Status: Active Member Role Status Dates Zoya ANDERSON, PA Family Provider Active Dr. Jia Yanes MD Primary Care Provider Active Team Status: Inactive Member Role Status Dates Dr. Jia Yanes MD Primary Care Provider, Attendi ng Provider Active Team Status: Inactive Member Role Status Dates Dr. Jia Yanes MD Primary Care Pro vider, Attending Provider, Referring Provider Active Team Status: Active Member Role/Relationship Status Dates Dr. Jia Yanes MD Primary Care Provider Active Team Status: Inactive Member Role/Relationship Status Dates Dr. Jia Yanes MD Primary Care Provider Active Start: August 11, 2024 End: August 11, 2024 Dr. Jia Yanes MD Referring Provider Active Start: August 11, 2024 End: August 11, 2024 Dr. Jagjit Rod MD Attending Provider Active S tart: August 11, 2024 End: August 11, 2024 Team Status: Inactive Member Role/Relationship Status Dates Dr. Jia Yanes MD Primary Care Provider Active Start: August 11, 2024 End: August 11, 2024 Dr. Jagjit Rod MD Attending Provider Active S tart: August 11, 2024 End: August 11, 2024 Dr. Jagjit Rod MD Referring Provider Active S tart: August 11, 2024 End: August 11, 2024 Team Status: Inactive Member Role/Relationship Status Dates Dr. Jia Yanes MD Primary Care Provider Active Start: August 16, 2024 End: August 16, 2024 Dr. Jagjit Rod MD Attending Provider Active S tart: August 16, 2024 End: August 16, 2024 Dr. Jagjit Rod MD Referring Provider Active S tart: August 16, 2024 End: August 16, 2024 Team Status: Inactive Member Role/Relationship Status Dates Dr. Jia Yanes MD Primary Care Provider Active Start: December 09, 2024 End: December 09, 2024 Dr. Jia Yanes MD Referring Provider Active Start: December 09, 2024 End: December 09, 2024 Kee Barraza VALIDATION INTERN, [employer] INTERN-C Attending Provider Active S tart: December 09, 2024 End: December 09, 2024 FOR RECORDS PERTAINING TO PATIENTS WHO ARE OR HAVE BEEN ENROLLED IN A CHEMICAL DEPENDENCY/SUBSTANCEABUSE PROGRAM, SOME INFORMATION MAY BE OMITTED. This clinical summary was aggregated from multiple sources. Caution should be exercised in using it in the provision of clinical care. This summary normalizes information from multiple sources, and as a consequence, information in this document may materially change the coding, format and clinical context of patient data. In addition, data may be omitted in some cases. CLINICAL DECISIONS SHOULD BE BASED ON THE PRIMARY CLINICAL RECORDS. [facility] [employer] provides no warranty or guarantee of the accuracy or completeness of information in this document.
[2025-02-14 07:39] LABS: Hematocrit 43.4 % (40-54); Hemoglobin 14.6 g/dL (13.0-16.5); Immature Granulocytes Count 0.020 X10^3/uL (0.0-0.0); Mean Corp Hgb Conc 33.6 g/dL (32-36); Mean Corpuscular Volume 94.1 fL (80-94); Mean Platelet Vol. 9.6 fl (6.2-12.0); NRBC Flagged by Analyzer 0 % (0-5); Platelet Count 209 K/mm3 (150-450); RBC Distribution Width CV 12.3 % (11.6-14.6); RBC Distribution Width SD 42.7 fl (35.1-43.9); Red Blood Count 4.61 M/mm3 (4.6-6.2); White Blood Count 6.5 K/mm3 (4.4-11.0)
[2025-02-14 09:10] LABS: AST(SGOT) 29 U/L (<=37); Alanine Aminotransfer ALT/SGPT 28 U/L (<=46); Albumin, Serum 4.6 g/dL (3.4-4.8); Alkaline Phosphatase 63 U/L (40-129); Anion Gap 8 (5-15); BUN 18 mg/dL (4-19); BUN/Creat Ratio 22.3 RATIO (10-20); Calcium,Total 9.7 mg/dL (7.6-11.0); Carbon Dioxide 27.8 mmol/L (21.0-32.0); Chloride 102 mmol/L (98-108); Cholesterol 134 mg/dL (<=200); Globulin 3.1 g/dL (2.2-4.2); Glucose 100 mg/dL (70-99); Low Density Lipoprotein Calc. 77 mg/dL; Magnesium 2.3 mg/dL (1.5-2.2); PSA,Total - Annual Screen 1.95 ng/mL (0.02-4.00); Potassium 4.4 mmol/L (3.3-5.1); Triglycerides 111 mg/dL; Very Low Density Lipoprotein 22 mg/dL (5-40); Vitamin B12 561 pg/mL (180-914); Vitamin D,25 Hydroxy 28.5 ng/mL (30-100); cholesterol:hdl ratio screen 3.69
== END | disposition home or self-care (01) ==
PROVIDERS: PCP Internal Medicine; Referring Provider Internal Medicine; Visit Provider Internal Medicine
DX: I10 Essential (primary) hypertension (principal); G47.33 Obstructive sleep apnea (adult) (pediatric); M19.90 Unspecified osteoarthritis, unspecified site; E78.5 Hyperlipidemia, unspecified; E55.9 Vitamin D deficiency, unspecified; E53.8 Deficiency of other specified B group vitamins; Z12.5 Encounter for screening for malignant neoplasm of prostate; Z13.220 Encounter for screening for lipoid disorders
CPT/HCPCS: 36415; 80053; 80061; 82306; 82607; 83036; 83735; 84153; 84443; 85025; G0103